=== PATIENT | female | born 1970 | race Caucasian/White ===

== ENCOUNTER 2023-08-09 04:24 | Emergency (ER) | payer OTHER, SELFPAY ==
[2023-08-09 04:32] VITALS: BP 145/85; PULSE 86; RESP 16; TEMP 37.4; O2SAT 98; BMI 42.0
--- NOTE | 2023-08-09 04:42 | ED.GENADULT ---
HPI - General Adult General Chief complaint: Fever Stated complaint: sore throat, fever Time Seen by Provider: 08/09/23 04:42 Source: patient Mode of arrival: ambulatory Limitations: no limitations History of Present Illness HPI narrative: Patient comes to the emergency room complaining of cold-like symptoms, diffuse body aches, fever of 100.5, sore throat. Symptoms have been present for 5 days Related Data Previous Rx's Medication Instructions Recorded benzonatate 100 mg capsule 100 mg PO TID PRN cough #14 caps 08/09/23 hydrocodone-homatropine 5 mg-1.5 5 ml PO TID PRN cough 5 days #473 08/09/23 mg/5 mL oral syrup (Hycodan (with mL homatropine)) Allergies Allergy/AdvReac Type Severity Reaction Status Date / Time nickel Allergy Hives Verified 08/09/23 04:38 levofloxacin [From Levaquin] AdvReac Anaphylaxis Verified 08/09/23 04:38 Review of Systems Review of Systems: Constitutional : No Weight loss, No Fever, No Chills, No Night Sweats, No Fatigue, complaining of body aches ENT/Mouth : No Hearing loss, No Ear Pain, No Nasal Congestion, No Sinus Pain, No Hoarseness, complaining of sore throat, No Rhinorrhea, No Swallowing Difficulty Eyes: No Eye Pain, No Swelling, No Redness, No Foreign Body, No Discharge, No Vision Changes Cardiovascular : No Chest Pain, No SOB, No Dyspnea on Exertion, No Orthopnea, No Edema, No Palpitations Respiratory : No Cough, No Sputum, No Wheezing, No Smoke Exposure, No Dyspnea Gastrointestinal : No Nausea, No Vomiting, No Diarrhea, No Constipation, No abdominal Pain, No Hematochezia, No Melena Genitourinary : no irregular bleeding, No Dysuria, No Urinary Frequency, No Hematuria, No Urinary Incontinence, No Urgency, No Flank Pain, No Urinary Flow Changes, No Hesitancy Musculoskeletal : No joint pain, No Myalgias, No Joint Swelling Skin : No Skin Lesions, No rash Neuro : No Weakness, No Numbness, No Paresthesias, No Loss of Consciousness, No Dizziness, No Headache Psych : No Anxiety/Panic, No Depression, No SI/HI/AH/VH, No Social Issues, Heme/Lymph: No Bruising, No Bleeding,No Lymphadenopathy Endocrine : No Polyuria, No Polydipsia, No Temperature Intolerance [facility] Past Medical History Medical History (Updated 08/09/23 @ 05:28 by Kinza Mike MD) Asthma Lupus Social History Social History Advance Directives: No Advance Directives Information Provided: Yes Physical Exam ED Vital Signs: Vital Signs - 24 hr 08/09/23 04:32 Temperature 99.3 F Pulse Rate 86 Respiratory Rate 16 Blood Pressure 145/85 H Pulse Oximetry 98 Oxygen Delivery Method Room Air BMI result Body Mass Index 42.0 Const Other: Appearance: Alert. Oriented X3. No acute distress. Eyes: Pupils equal, round and reactive to light. ENT: Pharynx normal. Neck: Normal inspection. Neck supple. No lymph nodes noted. No crepitus CVS: Normal heart rate and rhythm. Pulses normal. Normal S1 and S2 Respiratory: No respiratory distress. Breath sounds normal. No Wheezing. No rales Abdomen: Soft and nontender. No rigidity. No distention. Skin: Skin warm and dry. Normal skin color. Normal skin turgor. Extremities: No lower extremity edema. No Lacerations. No Rash Neuro: Oriented X 3. No motor deficit. No sensory deficit. Moving all extremities. No slurred speech. CN 2 through 12 grossly intact Psych: calm, cooperative, normal affect Medical Decision Making Medical Decision Making MDM Narrative: -my interpretation of labs, COVID test/influenza/strep test negative -likely viral illness Differential Diagnosis Differential Diagnoses: The differential diagnosis associated with the presentation includes (Viral syndrome, COVID, influenza) Lab Data Labs: Lab Results 08/09/23 Range/Units 04:31 Influenza Type A (PCR) NEGATIVE (Negative) Influenza Type B (PCR) NEGATIVE (Negative) RSV RNA Qual (PCR) NEGATIVE (Negative) SARS-CoV-2 RNA (RT-PCR) NEGATIVE (Negative) S. pyogenes GrpA ELIA Negative (Negative) Discharge Plan Discharge Clinical Impression: Acute viral syndrome Patient Disposition: Home, Self-Care Instructions: Viral Syndrome (ED) Additional Instructions: Please follow-up with your primary care physician tomorrow. If you have any worsening or new symptoms, please return to the emergency room or call 911 Prescriptions: New benzonatate 100 mg capsule 100 mg PO TID PRN (Reason: cough) Qty: 14 0RF hydrocodone-homatropine [Hycodan (with homatropine)] 5-1.5 mg/5 mL syrup 5 ml PO TID PRN (Reason: cough) 5 Days Qty: 473 0RF Rx Instructions: Partial Fill upon patient request.
[2023-08-09 04:52] LABS: IDNOW Serial# 08D9AD1C; Strep A Nucleic Acid Negative (Negative)
[2023-08-09 05:24] LABS: Influenza A PCR NEGATIVE (Negative); Influenza B PCR NEGATIVE (Negative); Resp Syncy Virus RNA Qual PCR NEGATIVE (Negative); SARS COV2 PCR INHOUSE NEGATIVE (Negative)
== END 2023-08-09 05:56 | disposition home or self-care (01) ==
PROVIDERS: Emergency Provider Emergency Medicine
DX: B34.9 Viral infection, unspecified (principal); R50.9 Fever, unspecified; J02.9 Acute pharyngitis, unspecified; Z20.822 Contact with and (suspected) exposure to COVID-19; Z20.828 Contact with and (suspected) exposure to other viral communicable diseases
CPT/HCPCS: 0241U; 87651; 99282; 99283

== ENCOUNTER 2024-07-09 09:40 | Outpatient (AMB) | payer OTHER, SELFPAY ==
[2024-07-09 09:44] VITALS: BP 130/86; BMI 48.4
--- NOTE | 2024-07-09 09:44 | MHC.OFFVIS ---
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 Pt states she has discoloration in both legs but states the right leg is worse. Pt states she had 2 DVT and 2 superficial thrombosis in her right leg. Pt states she wears compression socks everyday. Pt states she gets swelling in her legs as well. Pt states she is also going through radiation for cancer at [facility] currently. 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 Complaints include pain over varicosities, swelling of lower extremities, cramping, fatigue, and heaviness of the lower extremities. Her biggest concern is the discoloration in bilateral calfs. 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 It is noted more so in right leg. Of note she recently was diagnosed with uterine cancer had hysterectomy and actually is awaiting treatment with radiation therapy Patient denies any previous venous surgery or injections. Patient to prior events of a DVT and 1 day did lead to a PE this is a proximally 2 years prior. Patient denies any history of phlebitis. Trial of compression includes - [id number] They now present for vascular evaluation regarding their varicose veins. [facility] Medical History Asthma Lupus Review of Systems Const Reports as per HPI ENT Reports no additional complaints Card Denies chest pain, Denies chest pain at rest and Denies chest pain with activity Resp Denies chest congestion and Denies cough GI Reports no additional complaints Musc Details: pain over varicosities, aching of lower extremities, swelling, cramping, heaviness and tiredness, itching Denies abnormal gait Skin/Breast Reports pruritus and Denies wounds Neuro Reports no additional complaints and Denies abnormal gait Psych Denies no additional complaints Physical Exam Vital Signs: Last Vital Signs BP 130/86 07/09/24 09:44 BMI result Body Mass Index 48.4 Const General: cooperative, healthy appearing and comfortable Orientation/consciousness: oriented to person, oriented to place and oriented to time Neck Carotids: no bruits Chest Chest palpation & inspection: normal inspection of the chest and normal palpation of entire chest wall Resp Effort & Inspection: normal respiratory effort and able to speak in complete sentences Cardio Rate: regular rate Heart sounds: S1 normal heart sound present and S2 normal heart sound present Peripheral pulses: Peripheral pulses 2+ throughout GI Inspection: Yes normal to inspection Skin Other: +2 edema, large rope-like varicosities greater than 4 mm CEAP Classification C4 - skin color changes Ep - Etiology Primary As - superficial veins P - reflux General skin exam: dry skin Neuro General: oriented to person, oriented to place and oriented to time Extrem Right lower extremity: full ROM, normal capillary refill and edema Left lower extremity: full ROM, normal capillary refill and edema Psych Mental Status: mental status grossly normal Assessment & Plan Assessment & Plan (1) Varicose veins of right lower extremity with inflammation: Code(s): I83.11 - Varicose veins of right lower extremity with inflammation Category: Medical Plan: In short, the patient has evidence of venous insufficiency. I have discussed the pathophysiology with the patient. In addition I have provided informational material regarding venous disease to the patient. We have discussed conservative measures including compression, elevation, and exercise. I have also provided a handout regarding appropriate use of compression stockings and where to purchase good compression stockings as well. I have taken the liberty of ordering venous insufficiency testing with the patient. They will follow up with me after testing. The patient had an opportunity to ask questions regarding the treatment plan. All questions were answered. Imaging studies, laboratory studies and physical exam results were discussed and reviewed in detail. No major barriers to understanding were identified. The patient expressed understanding and agreement with the above treatment plan. The patient is aware they should contact our office by phone for worsening of the current condition or the appearance of new symptoms. Thank you for allowing me to participate in the vascular care of this patient. If you have any questions or concerns regarding the treatment for the above condition please do not hesitate to contact me. The office telephone contact is [phone]. This note is constructed using voice recognition software. While every effort has been made to ensure accuracy, silk spotter errors may have been included. Thank you for allowing me to participate in the care of your patient. Yours sincerely, Pietro Schaffer MD, FACS, R.P.V.I. (2) Lymphedema: Code(s): I89.0 - Lymphedema, not elsewhere classified Category: Medical Plan: Patient may have an element lymphedema. She did have radical hysterectomy with lymph node sampling. This may be contributing to her the swelling of the lower extremities. We did discuss this in detail with the patient as well. I will treat her for her venous disease 1st. If issues increase or should swelling become a problem may need to address lymphedema in the future. Thank you for allowing us to assist in her care. If there are any questions or concerns please do not hesitate to contact us. Orders: Orders US venous duplex LE BI 1 Week I83.11 - Varicose veins of right lower extremity with inflammation Medications: Discontinued hydrocodone-homatropine 5-1.5 mg/5 mL (Hycodan (with homatropine)) Partial Fill upon patient request. Discontinued Reason: Patient no longer taking 5 mL PO TID 5 days PRN 473 mL 0RF cough benzonatate Discontinued Reason: Patient no longer taking 100 mg PO TID PRN 14 caps 0RF cough Coding Level of Care Code New Pt Level 4 (05584) Diagnoses Varicose veins of right lower extremity with inflammation I83.11 Lymphedema I89.0
== END 2024-07-09 10:16 | disposition home or self-care (01) ==
PROVIDERS: Visit Provider Surgery Vascular Surgery
DX: I83.11 Varicose veins of right lower extremity with inflammation (principal); I89.0 Lymphedema, not elsewhere classified
CPT/HCPCS: 99204

== ENCOUNTER → 2024-07-09 09:40 | Outpatient (BNVA) | payer OTHER, SELFPAY | PROVIDERS: Visit Provider Surgery Vascular Surgery ==

== ENCOUNTER 2024-08-03 10:30 | Outpatient (REF) | payer OTHER, SELFPAY ==
--- NOTE | ~2024-08-03 | US_ITS ---
EXAMINATION: US VENOUS BILATERAL LOWER EXTREMITIES (REFLUX EXAM) CLINICAL INDICATION: Varicose veins right lower extremity COMPARISON: None TECHNIQUE: Color flow triplex imaging and compression Doppler was performed to evaluate both the deep and the superficial systems bilaterally. To evaluate the superficial system, the examination was performed in the upright position. Color-flow Doppler ultrasound and compression ultrasound were utilized. In addition, maneuvers were utilized to demonstrate reflux. FINDINGS: 1. DEEP VENOUS ULTRASOUND OF THE RIGHT LOWER EXTREMITY: Respiratory variation, normal compression and augmented flow are noted in the right common femoral vein as well as the right popliteal vein and there is no evidence of deep venous thrombosis at these locations. There is significant reflux of 2.1 seconds in the popliteal vein without reflux in the common femoral vein. There is no evidence of a Arnold's cyst. 2. SUPERFICIAL ULTRASOUND WITH DOPPLER OF RIGHT LOWER EXTREMITY: The right great saphenous vein at the saphenofemoral junction measures 8 mm, at the proximal thigh 6 mm, at the mid thigh 4 mm, above the knee 3 mm, at the knee 3 mm, [id number] 3 mm, midcalf 2 mm and at the ankle measures 4 mm. There is gross reflux in the right great saphenous vein from the mid thigh down to the mid calf with reflux times as high as 3 seconds. Duplicated Right Great Saphenous Vein: There is a 4 mm lateral saphenous vein that does not reflux. The right small saphenous vein measures 3 mm and shows no reflux. Accessory Vein of Giacomini: None Incompetent Perforators: There is a 2 mm incompetent perforators seen 21 cm from the heel with 2.4 seconds of reflux. Varices Present: Multiple varicosities ranging in size from 0.3 to 0.5 cm many with gross greater than 2 seconds of reflux 3. DEEP VENOUS ULTRASOUND OF THE LEFT LOWER EXTREMITY: Respiratory variation, normal compression and augmented flow are noted in the left common femoral vein as well as the left popliteal vein and there is no evidence of deep venous thrombosis at these locations. There is no evidence of reflux in the deep system in either the common femoral vein or the popliteal vein. There is no evidence of a Arnold's cyst. 4. SUPERFICIAL ULTRASOUND WITH DOPPLER OF LEFT LOWER EXTREMITY: Left great saphenous vein at the saphenofemoral junction measures 12 mm, at the proximal thigh 5 mm, at the mid thigh 4 mm, above the knee 3 mm, at the knee 4 mm, [id number] 3 mm, midcalf 1 mm and at the ankle measures 2 mm. There is reflux in the great saphenous vein from just below the knee down to the ankle with reflux times of 2.2 seconds. Duplicated Left Great Saphenous Vein: None The left small saphenous vein measures 2 mm and shows no reflux. Accessory Vein of Giacomini: None Incompetent Perforators: None. Varices Present: Varices are present measuring up to 0.6 cm in diameter with 2.8 seconds of reflux. US/US venous duplex LE BI IMPRESSION: 1. No evidence of thrombus in the common femoral veins or popliteal veins bilaterally. 2. Significant reflux in the right popliteal vein. 3. Bilateral great saphenous reflux as described above. Electronically signed by: Marc Ferguson MD 08/03/2024 02:37 PM EDT
== END 2024-08-03 10:31 | disposition home or self-care (01) ==
LOC: HO.US 10:30
PROVIDERS: Visit Provider Surgery Vascular Surgery
DX: I83.11 Varicose veins of right lower extremity with inflammation (principal)
CPT/HCPCS: 93970

== ENCOUNTER 2024-08-27 12:53 | Outpatient (AMB) | payer OTHER, SELFPAY ==
--- NOTE | 2024-08-27 13:00 | MHC.OFFVIS ---
Intake Visit Reasons: follow up s/p 08/03/24 Intake Note: Patient presents for followup . No complaints. Allergies amoxicillin [From Augmentin] Allergy (Severe, Verified 08/27/24 13:01) Vomiting clavulanic acid [From Augmentin] Allergy (Severe, Verified 08/27/24 13:01) Vomiting nickel Allergy (Verified 08/27/24 13:01) Hives levofloxacin [From Levaquin] Adverse Reaction (Verified 08/27/24 13:01) Anaphylaxis HPI HPI follow up s/p 08/03/24: Details: Very pleasant 53-year-old female presents for follow-up evaluation regarding venous disease. She has right lower extremity swelling and discomfort. She also has skin discoloration of bilateral calves. 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 She now presents for follow-up with venous insufficiency testing. Of note she has used compression with minimal relief. [facility] Medical History Asthma Lupus Review of Systems Const Reports as per HPI ENT Reports no additional complaints Card Denies chest pain, Denies chest pain at rest and Denies chest pain with activity Resp Denies chest congestion and Denies cough GI Reports no additional complaints Musc Details: pain over varicosities, aching of lower extremities, swelling, cramping, heaviness and tiredness, itching Denies abnormal gait Skin/Breast Reports pruritus and Denies wounds Neuro Reports no additional complaints and Denies abnormal gait Psych Denies no additional complaints Physical Exam Const General: cooperative, healthy appearing and comfortable Orientation/consciousness: oriented to person, oriented to place and oriented to time Neck Carotids: no bruits Chest Chest palpation & inspection: normal inspection of the chest and normal palpation of entire chest wall Resp Effort & Inspection: normal respiratory effort and able to speak in complete sentences Cardio Rate: regular rate Heart sounds: S1 normal heart sound present and S2 normal heart sound present Peripheral pulses: Peripheral pulses 2+ throughout GI Inspection: Yes normal to inspection Skin Other: +2 edema, right medial ankle discolored skin CEAP Classification C4 - skin color changes Ep - Etiology Primary As - superficial veins P - reflux General skin exam: dry skin Neuro General: oriented to person, oriented to place and oriented to time Extrem Right lower extremity: full ROM, normal capillary refill and edema Left lower extremity: full ROM, normal capillary refill and edema Psych Mental Status: mental status grossly normal Results Reviewed Results Reviewed: Brief summary of venous insufficiency testing is as follows: right great saphenous vein: Positive right small saphenous vein: negative right accessory vein: none present left great saphenous vein: negative left small saphenous vein: negative left accessory vein: none present Please note there is no evidence of any venous aneurysms or significant tortuosity Assessment & Plan Assessment & Plan (1) Varicose veins of right lower extremity with inflammation: Code(s): I83.11 - Varicose veins of right lower extremity with inflammation Category: Medical Plan: This patient has varicose veins with inflammation. They continue to be a source of discomfort for the patient. The patient has tried conservative treatment with compression, leg elevation and exercise program for over 3 months time. They have been compliant with all treatment. This has provided minimal relief for the patient. I do not anticipate this course of treatment will alter the underlying etiology. The patient has been scheduled for lower extremity venous treatment inclusive of --- right great saphenous vein Cyanoacralate ablation. Risks, benefits, and complications of this procedure has been discussed in detail with the patient including but not limited to bleeding, infection, and the development of a DVT. The patient has demonstrated a clear understanding and has consented. We will schedule the patient as soon as possible. Thank you for allowing us to participate in this patient's care. If there are any questions or concerns please do not hesitate to contact us. Coding Level of Care Code Est Pt Level 4 (67218) Diagnoses Varicose veins of right lower extremity with inflammation I83.11
== END 2024-08-27 13:14 | disposition home or self-care (01) ==
PROVIDERS: Visit Provider Surgery Vascular Surgery
DX: I83.11 Varicose veins of right lower extremity with inflammation (principal)
CPT/HCPCS: 99214

== ENCOUNTER → 2024-08-27 12:53 | Outpatient (BNVA) | payer OTHER, SELFPAY | PROVIDERS: Visit Provider Surgery Vascular Surgery ==

== ENCOUNTER 2024-11-20 12:26 | Outpatient (AMB) | payer OTHER, SELFPAY ==
--- NOTE | 2024-11-20 13:03 | MHC.OFFVIS ---
Intake Visit Reasons: Right GSV Venaseal Accompanied by: Self / Same As Patient Allergies amoxicillin [From Augmentin] Allergy (Severe, Verified 11/20/24 13:04) Vomiting clavulanic acid [From Augmentin] Allergy (Severe, Verified 11/20/24 13:04) Vomiting nickel Allergy (Verified 11/20/24 13:04) Hives levofloxacin [From Levaquin] Adverse Reaction (Verified 11/20/24 13:04) Anaphylaxis [facility] Medical History Asthma Lupus Office Procedures Vascular Office Procedure Details Details: Diagnosis: Right Leg varicose veins with inflammation Procedure: Endovenous Ablation of the right Great Saphenous Vein with VenaSeal Closure System Anesthesia: Local infiltration 5 cc, Monument Stonecutter: PHUONG Holland Estimated Blood Loss: min Specimen: none Duplex ultrasound was used to map out the insufficient saphenous vein, and access was determined and marked on the overlying skin. The depth and diameter of the vein(s) to be treated was documented. The patient was placed supine on the procedure table and the leg was prepped and draped using sterile technique. Ultasound guidance was again used to localize the access site. 1% lidocaine was injected as a local anesthetic in the subcutaneous tissues at the target location in the GSV in the lower leg. Using ultrasound guidance, access was gained at this location with the 19 gauge thin walled access needle and followed by introduction of a short guidewire, location confirmed with ultrasound. A small, 3 mm incision was made at the access site to allow for introduction and placement of the 7 Fr x7cm introducer/dilator. The dilator and guidewire were removed. The 0.035 guidewire from the VenaSeal kit was then introduced and positioned at the saphenofemoral junction using ultrasound guidance. The 80 cm 7 Fr introducer sheath/dilator was positioned 5cm from the saphenofemoral junction. The guidewire and dilator were removed, and the remaining sheath was flushed with sterile saline, with the syringe remaining in place prior to the next steps. The cyanoacrylate adhesive was precisely primed into the 5 F delivery catheter and this catheter/syringe combination was attached within the dispenser gun. This assembly was introduced through the 7F sheath and positioned 5 cm caudal of the saphenofemoral junction under ultrasound guidance. The steps from the IFU were followed for dispensing amounts, locations and compression times, 2 aliquots proximally with 3 minutes of compression, and 1 aliquot every 3 cm distally with 30 sec of compression along the course of the vessel. Following the last injection and compression sequence, the catheter and introducer sheath were pulled out from the access site. Hemostasis was achieved with manual compression and an adhesive bandage was applied to the incision. Ultrasound confirmed complete coaptation and closure of the treated segments of the GSV, and the absence of any DVT at the saphenofemoral junction. Treatment time was approximately 7 minutes and the vein length treated was 40 cm. The drapes were removed and the patient cleaned and prepared for discharge. Post op ultrasound check is scheduled for 48-72 hours and the patient was given written post-op instructions. Diagnosis: [] Leg varicose veins with inflammation 92097 - Endoven Ther Chem Adhes 1st All charges added?: Procedure code (CPT) selection complete Assessment & Plan Assessment & Plan (1) Varicose veins of right lower extremity with inflammation: Comment: 11/20/2024 - right great saphenous vein Cyanoacralate ablation Code(s): I83.11 - Varicose veins of right lower extremity with inflammation Category: Medical Plan: See op note Coding Level of Care Code Procedure Only Diagnoses Varicose veins of right lower extremity with inflammation I83.11 CPT Codes Details - Vascular 3: 72457 - Endoven Ther Chem Adhes 1st ([id number])
== END 2024-11-20 13:29 | disposition home or self-care (01) ==
PROVIDERS: Visit Provider Surgery Vascular Surgery
DX: I83.11 Varicose veins of right lower extremity with inflammation (principal)
CPT/HCPCS: 36482

== ENCOUNTER → 2024-11-20 12:26 | Outpatient (BNVA) | payer OTHER, SELFPAY | PROVIDERS: Visit Provider Surgery Vascular Surgery | DX: I83.11 Varicose veins of right lower extremity with inflammation (principal) | CPT/HCPCS: 36482; J2003 ==

== ENCOUNTER 2024-11-26 07:06 | Emergency (ER) | payer OTHER, SELFPAY ==
--- NOTE | ~2024-11-26 | US_ITS ---
EXAMINATION: US TRIPLEX LOWER EXTREMITY, BILATERAL CLINICAL INFORMATION: Pain, swelling, history of DVT. COMPARISON: 08/03/2024. TECHNIQUE: Color-flow triplex imaging with spectral analysis and compression Doppler were performed on the bilateral lower extremities. FINDINGS: Respiratory variation, normal compression and augmented flow are noted throughout the bilateral lower extremities. The visualized common femoral vein, superficial femoral vein, profunda femoral vein, popliteal vein and midcalf peroneal and posterior tibial venous segments show no evidence of deep venous thrombosis bilaterally. There is no Arnold's cyst. Status post RIGHT venous serial 11/20/2024, with greater saphenous thrombus seen 1.8 cm from the common femoral junction are US/US venous duplex LE BI IMPRESSION: 1. No evidence of deep venous thrombosis involving the bilateral lower extremities. 2. Expected RIGHT greater saphenous thrombosis, beginning 1.8 cm distal to the origin. No extension into the common femoral vein. Electronically signed by: Freddy Haile MD 11/26/2024 10:15 AM DOR[facility]
[2024-11-26 07:08] VITALS: BP 144/101; PULSE 91; RESP 16; TEMP 36.5; O2SAT 97; BMI 48.4
[2024-11-26 07:23] LABS: MANUAL DIFF FLAG NO
[2024-11-26 07:26] LABS: Basophils Percent Auto 0.6 % (0-2); Eosinophils Absolute Auto 0.2 X10*3/uL (0.0-0.4); Eosinophils Percent Auto 2.6 % (0-4); Hematocrit 41.3 % (37.0-47.0); Hemoglobin 13.6 g/dl (12.0-16.0); Imm Gran Abs Auto 0.02 X10*3/uL (0.00-0.03); Imm Gran Pct Auto 0.3 % (0.0-0.4); Lymphocytes Absolute Auto 2.4 X10*3/uL (1.2-4.9); Lymphocytes Percent Auto 34.5 % (20-40); Mean Corpuscular HGB Conc 32.9 g/dl (31.0-35.0); Mean Corpuscular Hemoglobin 28.6 pg (27.0-33.0); Mean Corpuscular Volume 86.9 fL (80.0-98.0); Mean Platelet Volume 9.1 fL (9.4-12.3); Monocytes Absolute Auto 0.6 X10*3/uL (0.1-1.2); Monocytes Percent Auto 8.5 % (2-11); Neutrophils Absolute Auto 3.7 x10*3/uL (2.0-8.3); Neutrophils Percent Auto 53.5 % (45-73); Platelet Count 213 X10*3/uL (160-400); Red Blood Count 4.75 X10*6/uL (4.20-5.50); Red Cell Distribution Width 12.9 % (11.0-16.0); White Blood Count 6.8 X10*3/uL (4.8-10.8)
--- NOTE | 2024-11-26 07:27 | ED.EXTPRO ---
HPI - Extremity Problem General Chief complaint: Extremity Problem Stated complaint: Leg swelling Time Seen by Provider: 11/26/24 07:15 Source: patient, RN notes reviewed and old records reviewed Mode of arrival: ambulatory Limitations: no limitations History of Present Illness ED Provider: Karley Peres PA-C HPI Narrative: 54 y/o female with history of DVT/PE s/p EKOS two years ago, now off of Xarelto, history of stage I endometrial cancer s/p surgery, radiation and chemo, asthma, lupus, history of RLE varicose veins s/p endovenous ablation of the right GSV w/ Dr. Schaffer on 11/20/24 who presents to the ER for evaluation of right lower extremity pain, swelling, redness that have been worsening since the procedure. She reports the redness and swelling are mostly in the lower leg anterior portion. She has pain behind the knee and in the groin as well. Follow up appointment with vascular is in 2 weeks. She reports prior DVT/PE were thought to be due to Moderna COVID vaccine. She had a negative hypercoagulable workup in the past. No chest pain or SOB. MD Complaint: extremity pain and extremity swelling Onset (ago): day(s) (3) Pain Consistency: constant Location: right and lower extremity Severity scale (1-10): 6 Quality: aching Radiation: proximal Relieving factors: rest Exacerbating factors: range of motion, weight bearing and palpation Associated symptoms: denies other symptoms Context: recent surgery/procedure Related Data Previous Rx's ?Medication ?Instructions ?Recorded doxycycline monohydrate 100 mg 100 mg PO BID #14 caps 11/26/24 capsule ketorolac 10 mg tablet 10 mg PO Q8H PRN pain 3 days #9 11/26/24 tabs Allergies Allergy/AdvReac Type Severity Reaction Status Date / Time amoxicillin [From Augmentin] Allergy Severe Vomiting Verified 11/26/24 07:13 clavulanic acid Allergy Severe Vomiting Verified 11/26/24 07:13 [From Augmentin] nickel Allergy Hives Verified 11/26/24 07:13 levofloxacin [From Levaquin] AdvReac Anaphylaxis Verified 11/26/24 07:13 Review of Systems Review of Systems: Yes all other systems are reviewed and are negative PMFSH Past Medical History Medical History Asthma Lupus Social History Social History Alcohol intake: current Alcohol intake frequency: a few times a month Smoked in Last 30 Days: No Use of substances other than those prescribed or required for medical reasons: No Advance Directives: No Advance Directives Information Provided: No Do you have a plan to hurt others: No Plan Physical Exam Vital Signs: Vital Signs: Last Vital Signs Temp 98.7 F 11/26/24 11:15 Pulse 76 11/26/24 11:15 Resp 16 11/26/24 11:15 BP 132/78 11/26/24 11:15 Pulse Ox 96 11/26/24 11:15 O2 Del Method Room Air 11/26/24 11:15 BMI result Body Mass Index 48.4 Appearance: Alert. Oriented X3. No acute distress. HEENT: normal inspection CVS: Normal heart rate and rhythm. Pulses normal. Respiratory: No respiratory distress. Skin: Skin warm and dry. Normal skin color. Normal skin turgor. No rashes. Extremities: mild erythema, warmth and tenderness to the middle of the right anterior lower leg. chronic venous stasis changes in the distal RLE. surgical access site in the proximal lower leg w/ minor ecchymosis. no erythema or drainage. there is tenderness and fullness in the popliteal area on the right. no calf tenderness. Neuro: Oriented X 3. No motor deficit. No sensory deficit. antalgic gait Medications Administered Discontinued Medications Generic Name Dose Route Start Last Admin Trade Name Freq PRN Reason Stop Dose Admin Acetaminophen 975 mg 11/26/24 08:12 11/26/24 08:24 Acetaminophen 325 Mg Tablet PO 11/26/24 08:13 975 mg ONCE ONE Administration Doxycycline Monohydrate 100 mg 11/26/24 10:26 11/26/24 10:55 Doxycycline Monohydrate 100 Mg Capsule PO 11/26/24 10:27 100 mg ONCE ONE Administration Ketorolac Tromethamine 30 mg 11/26/24 10:26 11/26/24 10:54 Ketorolac Tromethamine 30 Mg/Ml Vial IM 11/26/24 10:27 30 mg ONCE ONE Administration Medical Decision Making Medical Decision Making MDM Narrative: 54-year-old female presents to the ER for evaluation of right lower extremity pain, redness, swelling after she had an endovascular procedure done with Dr. Schaffer 6 days ago. Symptoms started 3 days after the procedure. She does have history of DVT and PE in the past and has been off of anticoagulation. Vascular made aware she is in the department in [place] came down to evaluate her. Lower extremity Dopplers done and were negative for acute DVT. There is a thrombosis in the area of the procedure which is an expected finding. There is no acute intervention. Given her physical exam findings and symptoms will treat for acute cellulitis with oral antibiotics. She reports history of Keflex very in the past and thinks she has MRSA colonization. Will prescribe doxycycline as she has tolerated this well in the past. Stable for discharge with follow-up with vascular. Differential Diagnosis Differential Diagnoses: The differential diagnosis associated with the presentation includes superficial thrombophlebitis, DVT, cellulitis, post-op complication Consult Healthcare Provider Management of the patient was discussed with: Ehr Trainer Dr. Schaffer Lab Data MDM Lab Attestation statement: I reviewed the patient's lab results. 11/26/24 07:19 11/26/24 07:19 Labs: Lab Results 11/26/24 Range/Units 07:19 WBC 6.8 (4.8-10.8) X10*3/uL RBC 4.75 (4.20-5.50) X10*6/uL Hgb 13.6 (12.0-16.0) g/dl Hct 41.3 (37.0-47.0) % MCV 86.9 (80.0-98.0) fL MCH 28.6 (27.0-33.0) pg MCHC 32.9 (31.0-35.0) g/dl RDW 12.9 (11.0-16.0) % Plt Count 213 (160-400) X10*3/uL MPV 9.1 L (9.4-12.3) fL Immature Gran % (Auto) 0.3 (0.0-0.4) % Neut % (Auto) 53.5 (45-73) % Lymph % (Auto) 34.5 (20-40) % [place] % (Auto) 8.5 (2-11) % Eos % (Auto) 2.6 (0-4) % Baso % (Auto) 0.6 (0-2) % Lymph # (Auto) 2.4 (1.2-4.9) X10*3/uL [place] # (Auto) 0.6 (0.1-1.2) X10*3/uL Eos # (Auto) 0.2 (0.0-0.4) X10*3/uL Baso # (Auto) 0.0 (0.0-0.2) X10*3/uL Abs Immat Gran (auto) 0.02 (0.00-0.03) X10*3/uL Absolute Neuts (auto) 3.7 (2.0-8.3) x10*3/uL Absolute Nucleated RBC 0.000 (0.0-0.012) X10*3/uL Nucleated RBC % (auto) 0.0 (0.0-0.2) /100WBC PT 12.1 (10.9-12.4) SEC INR 1.0 (0.9-1.1) APTT 31.1 (26.0-36.8) SEC Sodium 142 (135-145) mmol/L Potassium 3.8 (3.3-5.1) mmol/L Chloride 112 H (96-108) mmol/L Carbon Dioxide 22 (22-29) mmol/L Anion Gap 12 (12-20) BUN 14 (9-16) mg/dL Creatinine 0.78 (0.5-1.4) mg/dL Estim Creat Clear Calc 118.5 Estimated GFR > 60 Random Glucose 100 (60-115) mg/dL Calcium 9.7 (8.4-10.2) mg/dL Total Bilirubin 0.5 (0.0-1.0) mg/dL Direct Bilirubin 0.2 (0.0-0.5) mg/dL AST 18 (5-31) U/L ALT 13 (0-31) U/L Alkaline Phosphatase 79 (39-117) U/L Total Protein 7.8 (6.5-8.0) g/dL Albumin 3.9 (3.5-5.0) g/dL Independent Interpretation I performed an independent interpretation of an: Ultrasound Interpretation: no DVT appreciated Radiology Impression Discussion of test interpretation with radiology: I have reviewed the radiologist's reading. External Record Review External record reviewed: Prior outpatient labs and Prior outpatient radiology Prescription Management I considered prescription management with: Pain Medication, Antibiotic and Other (anticoagulation) Chronic Conditions Patient?s care impacted by: Other (cancer, hx DVT) Critical Care Time Critical Care Time Critical Care Time: No Discharge Plan Discharge Clinical Impression: Cellulitis Patient Disposition: Home, Self-Care Instructions: Cellulitis (DC) Additional Instructions: NO DVT seen in ultrasounds Take the prescribed antibiotics as directed, complete the entire course and do not miss any doses Use warm compresses several times per day Take the prescribed anti-inflammatory as needed for pain If you develop new or worsening symptoms call 911 or come back to the ER for further evaluation. EXAMINATION: US TRIPLEX LOWER EXTREMITY, BILATERAL CLINICAL INFORMATION: Pain, swelling, history of DVT. COMPARISON: 08/03/2024. TECHNIQUE: Color-flow triplex imaging with spectral analysis and compression Doppler were performed on the bilateral lower extremities. FINDINGS: Respiratory variation, normal compression and augmented flow are noted throughout the bilateral lower extremities. The visualized common femoral vein, superficial femoral vein, profunda femoral vein, popliteal vein and midcalf peroneal and posterior tibial venous segments show no evidence of deep venous thrombosis bilaterally. There is no Arnold's cyst. Status post RIGHT venous serial 11/20/2024, with greater saphenous thrombus seen 1.8 cm from the common femoral junction are US/US venous duplex LE BI IMPRESSION: 1. No evidence of deep venous thrombosis involving the bilateral lower extremities. 2. Expected RIGHT greater saphenous thrombosis, beginning 1.8 cm distal to the origin. No extension into the common femoral vein. Prescriptions: New doxycycline monohydrate 100 mg capsule 100 mg PO BID Qty: 14 0RF ketorolac 10 mg tablet 10 mg PO Q8H PRN (Reason: pain) 3 Days Qty: 9 0RF Interventions: ED Discharge Assessment Last Done: 11/26/24 11:15 Discharge Date/Time: 11/26/24 11:17 Print Language: Kinyarwanda
[2024-11-26 07:29] LABS: Prothrombin Time 12.1 SEC (10.9-12.4)
[2024-11-26 07:32] LABS: Partial Thromboplastin Time 31.1 SEC (26.0-36.8)
[2024-11-26 07:45] LABS: Alanine Aminotransferase 13 U/L (0-31); Albumin Level 3.9 g/dL (3.5-5.0); Anion Gap 12 (12-20); Aspartate Amino Transferase 18 U/L (5-31); Bilirubin Direct 0.2 mg/dL (0.0-0.5); Bilirubin Total 0.5 mg/dL (0.0-1.0); Blood Urea Nitrogen 14 mg/dL (9-16); Calcium 9.7 mg/dL (8.4-10.2); Carbon Dioxide 22 mmol/L (22-29); Chloride 112 mmol/L (96-108); Creatinine Clr Calc Pharmacy 118.5; Estimated Glomerular Filt Rate > 60; Glucose Random 100 mg/dL (60-115); Potassium 3.8 mmol/L (3.3-5.1); Sodium 142 mmol/L (135-145); Total Protein 7.8 g/dL (6.5-8.0)
[2024-11-26 07:53] LABS: Alkaline Phosphatase 79 U/L (39-117)
[2024-11-26] MEDS: Acetaminophen 325 MG TABLET 975 MG PO (08:24)
--- NOTE | 2024-11-26 10:36 | P.PNVS_ITS ---
<Statement entered by Pietro Schaffer MD - 11/26/24 11:29> Patient with acute thrombophlebitis. Would recommend warm compresses and nonsteroidals. Follow-up with us as an outpatient. Subjective Subjective Date of Service: 11/26/24 Interval history: We were consulted on Corrine, for RLE swelling and pain, since Saturday. She is s/p right GSV Venaseal on 11/20/24. She tolerated the procedure well. She states the swelling and pain started up around Saturday. She states her right lower extremity is very swollen, painful to palpation, and she states her ROM is decreased due to the pain and swelling. The incision site is C/D/I. She denies any fever/chills/body aches. She has been applying warm compresses to area with little effect. She has also been taking Ibuprofen. Physical Exam Vital Signs: Vital Signs: Last Vital Signs Temp 97.7 F 11/26/24 07:08 Pulse 91 11/26/24 07:08 Resp 16 11/26/24 07:08 BP 144/101 H 11/26/24 07:08 Pulse Ox 97 11/26/24 07:08 O2 Del Method Room Air 11/26/24 07:08 BMI result Body Mass Index 48.4 Const: General: comfortable and no acute distress Orientation/conscious ness: patient oriented x3 HEENT: Ears: hearing grossly normal bilaterally Resp: Effort & Inspection: normal respiratory effort and able to speak in complete sentences Auscultation: clear to auscultation bilaterally Cardio: Rate: regular rate Rhythm: regular rhythm Heart sounds: S1 normal heart sound present and S2 normal heart sound present Bruits: no abdominal aortic bruits, no carotid bruits, no femoral bruits and no renal bruits GI: Palpation (GI): No Abdominal aortic bruit present Neuro: General: patient oriented x3 Cranial nerves: Yes CN's II-XII intact bilaterally Extrem: Other: Right lower extremity: erythematous in the calf, medially from just above the ankle to just below the tibial tuberosity. Very painful to palpation. Warm to the touch. Progress Note: A&P Assessment and plan (1) Cellulitis: Status: Acute Assessment and Plan: Corrine is presenting to the ER for right lower extremity swelling, pain, and redness. We were consulted due to the pt being s/p right GSV Venaseal on Saturday, 11/20. She states she started having pain with redness and swelling in the right lower extremity since Saturday. She has been taking Ibuprofen and applying warm compresses to the lower leg. Venous duplex was negative for a DVT. We suggest continuing with warm compresses and Ibuprofen. We will have her follow up in our office in 2 weeks. Thank you for the consult. If there are any questions or concerns, please do not hesitate to reach out to us. Time Spent With Patient Time: Total time managing care of this patient today ____ minutes. Procedures Date of Service Date of Service: 11/26/24 Quality Stroke Does the patient have a stroke diagnosis?: No VTE Prior VTE?: No VTE Risk Level:: Medical - moderate - high VTE Device Contraindication: Treatment Not Indicated VTE Drug Contraindication: N/A - Med Ordered
[2024-11-26] MEDS: Ketorolac Tromethamine 30 MG/ML VIAL IM (10:54)
[2024-11-26] MEDS: Doxycycline Monohydrate 100 MG CAPSULE PO (10:55)
[2024-11-26 10:59] VITALS: BP 132/78; PULSE 76; RESP 16; O2SAT 96
[2024-11-26 11:15] VITALS: BP 132/78; PULSE 76; RESP 16; TEMP 37.1; O2SAT 96
== END 2024-11-26 11:17 | disposition home or self-care (01) ==
PROVIDERS: Emergency Provider Student in an Organized Health Care Education/Training Program; PCP Physician Assistant
DX: L03.115 Cellulitis of right lower limb (principal); R60.0 Localized edema; Z79.01 Long term (current) use of anticoagulants; Z79.899 Other long term (current) drug therapy
CPT/HCPCS: 36415; 80048; 80076; 85025; 85610; 85730; 93970; 96372; 99284; J1885

== ENCOUNTER → 2024-11-26 07:26 | Outpatient (BNV) | payer OTHER, SELFPAY | PROVIDERS: Emergency Provider Student in an Organized Health Care Education/Training Program; PCP Physician Assistant; Visit Provider Radiology Diagnostic Radiology | DX: M79.661 Pain in right lower leg (principal); M79.662 Pain in left lower leg; R22.9 Localized swelling, mass and lump, unspecified | CPT/HCPCS: 93970 ==

== ENCOUNTER → 2024-11-26 07:31 | Outpatient (BNV) | payer OTHER, SELFPAY | PROVIDERS: Emergency Provider Student in an Organized Health Care Education/Training Program; PCP Physician Assistant; Visit Provider Physician Assistant Surgical | DX: L03.115 Cellulitis of right lower limb (principal) | CPT/HCPCS: 99283 ==

== ENCOUNTER 2025-01-24 08:23 | Emergency (ER) | payer OTHER, SELFPAY ==
--- NOTE | ~2025-01-24 | US_ITS ---
CLINICAL HISTORY: calf pain and swelling Venous duplex ultrasound right lower extremity Comparison: 11/26/2024 Findings: There is deep venous thrombosis from the distal superficial femoral vein through the popliteal vein. No popliteal cyst. The rest of the deep venous system of the right lower extremity is patent. IMPRESSION: There is deep venous thrombosis from the distal superficial femoral vein through the popliteal vein. This document has been electronically signed by: Maximo Flowers MD on 01/24/2025 09:50:54
--- NOTE | ~2025-01-24 | CT_ITS ---
CLINICAL HISTORY: calf pain and swelling, hx saddle PE CT angiography chest with contrast. 3D Postprocessing. Comparison: None Findings: The heart is normal in size. The RV/LV ratio is normal. There is no pericardial effusion. The thyroid gland appears normal. There is no mediastinal, hilar, or axillary lymphadenopathy. Acute pulmonary emboli are seen within the right upper lobe, right middle lobe, and bilateral lower lobe segmental and subsegmental branches. 1.7 cm left lower lobe nodule is seen adjacent to the diaphragm (axial image 42 of series 5). Limited examination of the upper abdomen demonstrates no significant abnormality. Mild degenerative changes are seen in the spine. No acute fractures. IMPRESSION: 1. Acute pulmonary emboli within the right upper lobe, right middle lobe, and bilateral lower lobe segmental and subsegmental pulmonary arteries. No evidence of right heart strain. 2. 1.7 cm left lower lobe nodule adjacent to the diaphragm. According to Fleischner society guidelines, recommend three-month follow-up CT chest, PET/CT, or tissue sampling for further evaluation. This document has been electronically signed by: Laurent Chao on 01/24/2025 10:50:31
[2025-01-24 08:27] VITALS: BP 132/80; PULSE 75; RESP 14; TEMP 36.4; O2SAT 95; BMI 42.0
--- NOTE | 2025-01-24 08:36 | ED.GENADULT ---
HPI - General Adult General Chief complaint: Extremity Injury, Lower Stated complaint: right leg swelling Time Seen by Provider: 01/24/25 08:24 Source: patient, RN notes reviewed and old records reviewed Mode of arrival: ambulatory Limitations: no limitations History of Present Illness ED Provider: Rhianna HPI narrative: Patient is a 54-year-old female with history DVT/PE s/p EKOS two years ago, now off of Xarelto, history of stage I endometrial cancer s/p surgery, radiation and chemo, asthma, lupus, history of RLE varicose veins s/p endovenous ablation of the right GSV w/ Dr. Schaffer on 11/20/24 presenting with right calf pain and swelling since Saturday. First noted symptoms after gardening, initially attributed to twisting her right knee. Complains of pain to popliteal fossa as well. Denies chest pain or dyspnea. Does reports some palpitations which she has been attributing to caffeine consumption. Denies lightheadedness or syncope. Did self administer one dose of Lovenox last night. MD complaint: right lower extremity pain and swelling Onset (ago): day(s) Location: right and lower extremity Related Data Previous Rx's ?Medication ?Instructions ?Recorded doxycycline monohydrate 100 mg 100 mg PO BID #14 caps 11/26/24 capsule ketorolac 10 mg tablet 10 mg PO Q8H PRN pain 3 days #9 11/26/24 tabs apixaban 5 mg (74 tabs) tablets in 5 mg PO BID #74 ea 01/24/25 a dose pack (Eliquis DVT-PE Treat 30D Start) oxycodone 5 mg tablet 5 mg PO Q8H PRN severe pain (scale 01/24/25 score 7-10) #9 tabs Allergies Allergy/AdvReac Type Severity Reaction Status Date / Time amoxicillin [From Augmentin] Allergy Severe Vomiting Verified 01/24/25 08:29 clavulanic acid Allergy Severe Vomiting Verified 01/24/25 08:29 [From Augmentin] nickel Allergy Hives Verified 01/24/25 08:29 levofloxacin [From Levaquin] AdvReac Anaphylaxis Verified 01/24/25 08:29 Review of Systems Review of Systems: As per HPI Yes all other systems are reviewed and are negative Constitutional: Constitutional: Reports as per HPI PMFSH Past Medical History Medical History Asthma Lupus Social History Social History Alcohol intake: current Alcohol intake frequency: a few times a month Advance Directives: Yes Advance Directives Information Provided: Yes Advance Directives on File: No Do you have a plan to hurt others: No Plan Physical Exam ED Vital Signs: Vital Signs - 24 hr 01/24/25 08:27 01/24/25 11:12 01/24/25 12:10 Temperature 97.5 F 97.6 F Pulse Rate 75 76 74 Respiratory Rate 14 20 16 Blood Pressure 132/80 146/79 H 153/69 H Pulse Oximetry 95 99 100 Oxygen Delivery Method Room Air Room Air Room Air 01/24/25 12:11 Temperature Pulse Rate Respiratory Rate Blood Pressure Pulse Oximetry 100 Oxygen Delivery Method BMI result Body Mass Index 42.0 Vital signs have been reviewed and appear to be correct. Blood pressure normal. Heart rate normal. Respiratory rate normal. Temperature normal. Oxygen saturation normal. Const General: cooperative, healthy appearing and no acute distress Orientation/consciousness: oriented to person, oriented to place, oriented to time and patient oriented x3 Limitations: no limitations HENMT Head: Yes normocephalic and Yes atraumatic Ears: external ears normal General nose exam: Normal external nose present Face and sinus: Yes face symmetric Mouth: oropharynx normal and moist mucous membranes Throat: Yes uvula midline Eyes Pupils: Equal, round and reactive pupils present Neck Neck: Yes normal visual inspection and Yes supple Resp Effort & Inspection: normal respiratory effort and able to speak in complete sentences Auscultation: clear to auscultation bilaterally Cardio Rate: regular rate Rhythm: regular rhythm Heart sounds: S1 normal heart sound present and S2 normal heart sound present GI Palpation (GI): Soft to palpation and nontender Auscultation: normoactive bowel sounds General: Yes no CVA tenderness Back/Spine/Pelvis Back: no CVA tenderness Skin General skin exam: elasticity normal and turgor normal Neuro General: oriented to person, oriented to place, oriented to time, patient oriented x3, moves all extremities, no focal motor deficits and CN's II-XI intact bilaterally Cranial nerves: Yes Equal, round and reactive pupils present Cognition (Neuro): normal cognition Extrem General: Yes full ROM, Yes no pedal edema and Yes no calf tenderness Right lower extremity: lower leg Details: tenderness Location: of the posterior calf and localized swelling Location: of the proximal lower leg and foot Details: vascular exam Details: dorsalis pedis pulse present, posterior tibial pulse present and normal capillary refill Psych Mental Status: mental status grossly normal Affect: normal affect Thought process: Normal thought process present Medications Administered Discontinued Medications Generic Name Dose Route Start Last Admin Trade Name Stevo PRN Reason Stop Dose Admin Iohexol 100 ml 01/24/25 10:22 01/24/25 10:23 Iohexol 350 Mg/Ml 100 Ml Infus..Btl IV 01/24/25 10:23 65 ml ONCE ONE Administration Ketorolac Tromethamine 30 mg 01/24/25 08:43 01/24/25 08:48 Ketorolac Tromethamine 30 Mg/Ml Vial IM 01/24/25 08:44 30 mg ONCE ONE Administration Medical Decision Making Medical Decision Making [facility] Narrative: Patient is a 54-year-old female with history DVT/PE s/p EKOS two years ago, now off of Xarelto, history of stage I endometrial cancer s/p surgery, radiation and chemo, asthma, lupus, history of RLE varicose veins s/p endovenous ablation of the right GSV w/ Dr. Schaffer on 11/20/24 presenting with right calf pain and swelling since Saturday. On exam patient is awake, A+Ox3, VS WNL, afebrile, normal neurological exam without focal deficits, physical exam findings as above. Given reported symptoms and physical exam findings, initial differential includes but is not limited to DVT, Arnold's cyst, muscle strain. Patient denies chest pain or dyspnea but has history of saddle PE, CA, is high risk, will obtain CTA chest. Labs unremarkable. U/S of RLE notable for DVT from distal superficial femoral vein through popliteal. CTA chest notable for PE to RUL, RML, and bilateral lower lobe segmental and subsegmental pulmonary arteries without evidence of right heart strain as well as nodule to left lower lobe. My interpretation is in agreement with the radiologist's interpretation. EKG shows NSR. Results discussed with patient and hospital admission recommended. Patient declining admission at this time, states she has no one to care for her dogs. Ambulatory O2 sat 100%, patient is without chest pain or dyspnea and no evidence of right heart strain on CT. 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 I am comfortable with discharge home. Will refer to Dr. Brock for further evaluation of pulmonary nodule in the setting of recent treatment for endometrial CA. Will discharge home on Eliquis, advised patient to follow up with Dr. Schaffer as well. Will send prescription for oxycodone for severe pain. Return precautions discussed at bedside. Patient verbalized understanding of and agreement with plan. Differential Diagnosis Differential Diagnoses: The differential diagnosis associated with the presentation includes As per [facility] Admission/Observation Consideration of admission/observation: Escalation of care including admission/observation considered Recommended, patient declined Lab Data [facility] Lab Attestation statement: I reviewed the patient's lab results. As per [facility] 01/24/25 09:00 01/24/25 08:59 Labs: Lab Results 01/24/25 01/24/25 Range/Units 08:59 09:00 WBC 5.6 (4.8-10.8) X10*3/uL RBC 4.35 (4.20-5.50) X10*6/uL Hgb 12.4 (12.0-16.0) g/dl Hct 36.1 L (37.0-47.0) % MCV 83.0 (80.0-98.0) fL MCH 28.5 (27.0-33.0) pg MCHC 34.3 (31.0-35.0) g/dl RDW 13.2 (11.0-16.0) % Plt Count 173 (160-400) X10*3/uL MPV 9.0 L (9.4-12.3) fL Immature Gran % (Auto) 0.2 (0.0-0.4) % Neut % (Auto) 47.7 (45-73) % Lymph % (Auto) 36.3 (20-40) % Thomas % (Auto) 9.4 (2-11) % Eos % (Auto) 5.9 H (0-4) % Baso % (Auto) 0.5 (0-2) % Lymph # (Auto) 2.1 (1.2-4.9) X10*3/uL Thomas # (Auto) 0.5 (0.1-1.2) X10*3/uL Eos # (Auto) 0.3 (0.0-0.4) X10*3/uL Baso # (Auto) 0.0 (0.0-0.2) X10*3/uL Abs Immat Gran (auto) 0.01 (0.00-0.03) X10*3/uL Absolute Neuts (auto) 2.7 (2.0-8.3) x10*3/uL Absolute Nucleated RBC 0.000 (0.0-0.012) X10*3/uL Nucleated RBC % (auto) 0.0 (0.0-0.2) /100WBC PT 11.7 (10.9-12.4) SEC INR 1.0 (0.9-1.1) Sodium 140 (135-145) mmol/L Potassium 3.8 (3.3-5.1) mmol/L Chloride 111 H (96-108) mmol/L Carbon Dioxide 22 (22-29) mmol/L Anion Gap 11 L (12-20) BUN 12 (9-16) mg/dL Creatinine 0.91 (0.5-1.4) mg/dL Estim Creat Clear Calc 93.3 Estimated GFR > 60 Random Glucose 114 (60-115) mg/dL Calcium 9.0 D (8.4-10.2) mg/dL Total Bilirubin 0.5 (0.0-1.0) mg/dL AST 15 (5-31) U/L ALT 18 (0-31) U/L Alkaline Phosphatase 75 (39-117) U/L Total Protein 6.9 (6.5-8.0) g/dL Albumin 3.5 (3.5-5.0) g/dL Independent Interpretation I performed an independent interpretation of an: Ultrasound and CT Scan Interpretation: U/S of RLE notable for DVT from distal superficial femoral vein through popliteal. CTA chest notable for PE to RUL, RML, and bilateral lower lobe segmental and subsegmental pulmonary arteries without evidence of right heart strain as well as nodule to left lower lobe. Radiology Impression Discussion of test interpretation with radiology: I have reviewed the radiologist's reading. Radiologist Impression: Findings: There is deep venous thrombosis from the distal superficial femoral vein through the popliteal vein. No popliteal cyst. The rest of the deep venous system of the right lower extremity is patent. IMPRESSION: There is deep venous thrombosis from the distal superficial femoral vein through the popliteal vein. IMPRESSION: 1. Acute pulmonary emboli within the right upper lobe, right middle lobe, and bilateral lower lobe segmental and subsegmental pulmonary arteries. No evidence of right heart strain. 2. 1.7 cm left lower lobe nodule adjacent to the diaphragm. According to Fleischner society guidelines, recommend three-month follow-up CT chest, PET/CT, or tissue sampling for further evaluation. External Record Review External record reviewed: Inpatient record, Office record and Outpatient record Prescription Management I considered prescription management with: Pain Medication and Other Discharge Plan Discharge Clinical Impression: Deep vein thrombosis (DVT) of right lower extremity, Pulmonary emboli Patient Disposition: Home, Self-Care Instructions: Apixaban (By mouth), Deep Vein Thrombosis (ED) Additional Instructions: You were evaluated in the emergency department today for right leg pain. Your ultrasound showed evidence of a DVT. The CT scan of your chest also showed pulmonary. You are being started on Eliquis. Call Dr. Schaffer to schedule a follow up appointment. We also recommend following up on lung nodule with Dr. Brock. You are being prescribed oxycodone for severe pain. Return to the emergency department if you develop chest pain, shortness of breath or difficulty breathing, fever, dizziness, lightheadedness, fainting, or any other new or concerning symptoms. CLINICAL HISTORY: calf pain and swelling Venous duplex ultrasound right lower extremity Comparison: 11/26/2024 Findings: There is deep venous thrombosis from the distal superficial femoral vein through the popliteal vein. No popliteal cyst. The rest of the deep venous system of the right lower extremity is patent. IMPRESSION: There is deep venous thrombosis from the distal superficial femoral vein through the popliteal vein. CLINICAL HISTORY: calf pain and swelling, hx saddle PE CT angiography chest with contrast. 3D Postprocessing. Comparison: None Findings: The heart is normal in size. The RV/LV ratio is normal. There is no pericardial effusion. The thyroid gland appears normal. There is no mediastinal, hilar, or axillary lymphadenopathy. Acute pulmonary emboli are seen within the right upper lobe, right middle lobe, and bilateral lower lobe segmental and subsegmental branches. 1.7 cm left lower lobe nodule is seen adjacent to the diaphragm (axial image 42 of series 5). Limited examination of the upper abdomen demonstrates no significant abnormality. Mild degenerative changes are seen in the spine. No acute fractures. IMPRESSION: 1. Acute pulmonary emboli within the right upper lobe, right middle lobe, and bilateral lower lobe segmental and subsegmental pulmonary arteries. No evidence of right heart strain. 2. 1.7 cm left lower lobe nodule adjacent to the diaphragm. According to Fleischner society guidelines, recommend three-month follow-up CT chest, PET/CT, or tissue sampling for further evaluation. Prescriptions: New Eliquis DVT-PE Treat 30D Start 5 mg (74 tabs) tablets,dose pack 5 mg PO BID Qty: 74 0RF Rx Instructions: Take 10mg (2 tabs) twice daily for one week, then 5mg (1 tab) twice daily after that oxycodone 5 mg tablet 5 mg PO Q8H PRN (Reason: severe pain (scale score 7-10)) Qty: 9 0RF Rx Instructions: Partial Fill upon patient request. No Action doxycycline monohydrate 100 mg capsule 100 mg PO BID Qty: 14 0RF ketorolac 10 mg tablet 10 mg PO Q8H PRN (Reason: pain) 3 Days Qty: 9 0RF Referrals: Pietro Schaffer MD [Physician] - Jazmin Brock MD [Physician] - Stand Alone Forms: Work/School Release Print Language: Italian
[2025-01-24] MEDS: Ketorolac Tromethamine 30 MG/ML VIAL IM (08:48)
[2025-01-24 09:05] LABS: MANUAL DIFF FLAG NO
[2025-01-24 09:07] LABS: Basophils Percent Auto 0.5 % (0-2); Eosinophils Absolute Auto 0.3 X10*3/uL (0.0-0.4); Eosinophils Percent Auto 5.9 % (0-4); Hematocrit 36.1 % (37.0-47.0); Hemoglobin 12.4 g/dl (12.0-16.0); Imm Gran Abs Auto 0.01 X10*3/uL (0.00-0.03); Imm Gran Pct Auto 0.2 % (0.0-0.4); Lymphocytes Absolute Auto 2.1 X10*3/uL (1.2-4.9); Lymphocytes Percent Auto 36.3 % (20-40); Mean Corpuscular HGB Conc 34.3 g/dl (31.0-35.0); Mean Corpuscular Hemoglobin 28.5 pg (27.0-33.0); Monocytes Absolute Auto 0.5 X10*3/uL (0.1-1.2); Monocytes Percent Auto 9.4 % (2-11); Neutrophils Absolute Auto 2.7 x10*3/uL (2.0-8.3); Neutrophils Percent Auto 47.7 % (45-73); Platelet Count 173 X10*3/uL (160-400); Red Blood Count 4.35 X10*6/uL (4.20-5.50); Red Cell Distribution Width 13.2 % (11.0-16.0); White Blood Count 5.6 X10*3/uL (4.8-10.8)
[2025-01-24 09:11] LABS: Prothrombin Time 11.7 SEC (10.9-12.4)
[2025-01-24 09:22] LABS: Alanine Aminotransferase 18 U/L (0-31); Albumin Level 3.5 g/dL (3.5-5.0); Alkaline Phosphatase 75 U/L (39-117); Anion Gap 11 (12-20); Aspartate Amino Transferase 15 U/L (5-31); Bilirubin Total 0.5 mg/dL (0.0-1.0); Blood Urea Nitrogen 12 mg/dL (9-16); Carbon Dioxide 22 mmol/L (22-29); Chloride 111 mmol/L (96-108); Creatinine Clr Calc Pharmacy 93.3; Estimated Glomerular Filt Rate > 60; Glucose Random 114 mg/dL (60-115); Potassium 3.8 mmol/L (3.3-5.1); Sodium 140 mmol/L (135-145); Total Protein 6.9 g/dL (6.5-8.0)
[2025-01-24] MEDS: iohexoL 350 MG/ML 100 ML INFUS..BTL IV (10:23)
--- NOTE | 2025-01-24 10:28 | PC.NURSE ---
patient states pain is managed with toradol injection, medicated per MAR. patient has positive pedal pulse on left foot.
--- NOTE | 2025-01-24 10:55 | ECG_ITS ---
Test Reason : HISTORY OF PE'S Blood Pressure : */* mmHG Vent. Rate : 80 BPM Atrial Rate : 80 BPM P-R Int : 160 ms QRS Dur : 88 ms QT Int : 408 ms P-R-T Axes : 45 8 27 degrees QTcB Int : 470 ms Normal sinus rhythm Nonspecific T wave abnormality Abnormal ECG No previous ECGs available Referred By: Kristin Moctezuma Electronically Signed By: Tj Mendez
[2025-01-24 11:12] VITALS: BP 146/79; PULSE 76; RESP 20; O2SAT 99
[2025-01-24 12:10] VITALS: BP 153/69; PULSE 74; RESP 16; TEMP 36.4; O2SAT 100
[2025-01-24 12:11] VITALS: O2SAT 100
== END 2025-01-24 13:10 | disposition home or self-care (01) ==
PROVIDERS: Registered Nurse Emergency; Emergency Provider Emergency Medicine; PCP Physician Assistant
DX: I82.411 Acute embolism and thrombosis of right femoral vein (principal); I82.431 Acute embolism and thrombosis of right popliteal vein; I26.99 Other pulmonary embolism without acute cor pulmonale; M79.661 Pain in right lower leg; J45.909 Unspecified asthma, uncomplicated; C54.1 Malignant neoplasm of endometrium; Z92.21 Personal history of antineoplastic chemotherapy; Z92.3 Personal history of irradiation; Z79.899 Other long term (current) drug therapy
CPT/HCPCS: 36415; 71275; 80053; 85025; 85610; 93005; 93971; 96372; 99284; J1885; Q9967

== ENCOUNTER → 2025-01-24 08:36 | Outpatient (BNV) | payer OTHER, SELFPAY | PROVIDERS: Emergency Provider Emergency Medicine; PCP Physician Assistant; Visit Provider Radiology Diagnostic Radiology | DX: I26.99 Other pulmonary embolism without acute cor pulmonale (principal); R91.1 Solitary pulmonary nodule; I82.411 Acute embolism and thrombosis of right femoral vein; I82.431 Acute embolism and thrombosis of right popliteal vein | CPT/HCPCS: 71275; 93971 ==

== ENCOUNTER → 2025-01-24 10:55 | Outpatient (BNV) | payer OTHER, SELFPAY | PROVIDERS: Emergency Provider Emergency Medicine; PCP Physician Assistant; Visit Provider Internal Medicine Cardiovascular Disease | DX: R94.31 Abnormal electrocardiogram [ECG] [EKG] (principal); R60.0 Localized edema | CPT/HCPCS: 93010 ==

== ENCOUNTER → 2025-02-02 08:52 | Outpatient (BNV) | payer OTHER, SELFPAY | PROVIDERS: PCP Physician Assistant; Visit Provider Internal Medicine Medical Oncology | DX: I82.401 Acute embolism and thrombosis of unspecified deep veins of right lower extremity (principal); I26.99 Other pulmonary embolism without acute cor pulmonale; Z79.01 Long term (current) use of anticoagulants | CPT/HCPCS: 99204 ==

== ENCOUNTER 2025-02-04 11:34 | Outpatient (REF) | payer OTHER, SELFPAY ==
--- NOTE | ~2025-02-04 | US_ITS ---
EXAMINATION: US THYROID CLINICAL INFORMATION: Follow-up thyroid nodule. COMPARISON: Correlated to CT angiogram chest dated January 24, 2025. No prior ultrasound in our system.. TECHNIQUE: Linear transducer grayscale and color Doppler examination with attention to the region of the thyroid. FINDINGS: SIZE: Measurements of the thyroid lobes and nodules are given in sagittal, anteroposterior and transverse dimensions respectively. Right Thyroid Lobe: 5 x 1.6 x 1.5 cm, volume 6.2 mL. Parenchyma: The gland echotexture is normal. Thyroid vascularity is normal. Left Thyroid Lobe: 5.1 x 1.5 x 1.9 cm, volume 7.4 mL. Parenchyma: The gland echotexture is normal. Thyroid vascularity is normal. Isthmus: 0.4 cm in maximum AP dimension. Estimated total number of nodules greater than or equal to 1 cm: 0. Fiber Optic Assembler nodules are described as follows: 1. Location: Right mid lobe.. Size: 0.7 x 0.6 x 0.6 cm, volume 0.1 mL. Nodule characteristics: Composition: Solid/almost completely solid (2). Echogenicity: Hyperechoic (1). Shape: Not taller than wide (0). Margins: Ill-defined (0). Echogenic Foci: None (0). ACR TI-RADS total points: 3 ACR TI-RADS category: 3 NODES: Scattered less than 1.3 cm lymph nodes with fatty hilum, nonspecific. US/US thyroid IMPRESSION: ACR TI-RADS category: 3 ACR TI-RADS RECOMMENDATION REFERENCE: Ultrasound-guided fine-needle aspiration, followup ultrasound, no further follow up. * TR1 (0 point) and TR2 (2 points): No FNA or follow up. * TR3 (3 points): FNA if more than or equal to 2.5 cm in maximum dimension, followup ultrasound in 1, 3 and 5 years if 1.5 to 2.4 cm in maximum dimension. * TR4 (4-6 points): FNA if more than or equal to 1.5 cm in maximum dimension, followup ultrasound in 1, 2, 3 and 5 years if 1 to 1.4 cm in maximum dimension. * TR5 (more than or equal to 7 points): FNA if more than or equal to 1 cm in maximum dimension, followup ultrasound every year for 5 years if 0.5 to 0.9 cm in maximum dimension. * TR3, TR4 or TR5 nodules that are below the size threshold for followup receive no follow up. Electronically signed by: Angelito Gu MD 02/04/2025 12:59 PM EDT
--- OUTSIDE RECORDS SUMMARY | 2025-02-04 15:08 | XMS_ITS ---
Author Organization [facility] Address [address] [place] [id number] Care Team Providers Care Transportation Planner Name Role Phone Aimee Heard Unavailable [phone] ALLERGIES Allergen (clinical drug ingredient) Drug/Non Drug Allergy documented on EMR Reaction Allergy Type Onset Date Status Levaquin anaphylaxis Drug Allergy Activ e REASON FOR VISIT Pt here for weight management consult, SECA done and pt received Tirzepatide 2.5mg on RLQ sub q, pttolerated well with no reaction. MEDICATIONS Medication SIG (Take, Route, Fr equency, Duration) Notes Start Date End Date Status Ondansetron HCl 4 MG 1 tablet Orally Onc e a day for 20 days 01/16/2024 Active Multivitamin - 1 tablet Orally Once a day Active Mounjaro 2.5 MG/0.5ML as directed Subcut aneous once weekly for 30 days 01/16/2024 Active SOCIAL HISTORY Tobacco Use: Social History Observation Description Date Details (start date - stop date) Never Smoker NA - NA Sex Assigned At : Social History Observation Description Sex Assigned At Unknown Tobacco Use/Smoking Question Answer Notes Are you a nonsmoker Alcohol Screen (Audit-C) Question Answer Notes Did you have a drink contain ing alcohol in the past year? Yes How often did you have a dri nk containing alcohol in the past year? 2 to 3 times a week (3 points) Points 3 Interpretation Positive PROBLEMS Problem Type ICD Code Onset Dates Problem Status W/U Status Risk SNOMED Code Notes Problem Morbid (severe) obesity due to excess calories (E66.01) Active confirmed 100843581 Problem Body mass index [BMI] 45.0-49.9, adult (Z68.42) Active confirmed 616730105 Problem Thyroid cyst (E04.1) Active confirmed 78499890 Problem Adrenal mass (E27.8) Active confirmed 942690405 VITAL SIGNS Blood pressure systolic 118 mm Hg 01/16/20 24 Blood pressure diastolic 78 mm Hg 024 Heart Rate 93 /min 01/16/2024 Height 56 in 01/16/2024 Weight 306 lbs 01/16/2024 BMI 68.6 kg/m2 01/16/2024 Oximetry 99 % 01/16/2024 Encounters Encounter Location Date Provider Diagnosis [facility] [address] [facility] [address] [place] [id number] 01/16/2024 Aimee Svrcek Morbid (severe) obes ity due to excess calories E66.01 ; Body mass index [BMI] 45.0-49.9, adult Z68.42 ; Thyroid cyst E04.1 ; Adrenal mass E27.8 ; History of pulmonary embolus (PE) Z86.711 and Prediabetes R73.03 ASSESSMENTS Encounter Date Diagnosis Assessment Notes Treatment Notes Treatment Clinical Notes Section Notes 01/16/2024 Morbid (severe) obesity due to excess calories (ICD-10 - E66.01) #Morbid obesity. 305.89 pounds, BMI 49.4. Lengthy discussion with patient in regards to weight loss medications. She has previously been on Mounjaro up to 7.5 mg with great success and loss of 50 pounds. Since being off medication for the last year and a half she has regained the weight. Ultimately she would like to resume Mounjaro. Discussed option of compounded semaglutide and compounded Tirzapeptide here in office. We reviewed cost associated with both compounding programs and escalating cost with escalating dose. She would like to start Vicky peptide today and was given 2.5 mg. We will submit Mounjaro to insurance for coverage. Discussed PA process can take 3 to 4 weeks. Will plan to follow-up in 1 week for nurse visit for next dose of Tirzapeptide 2.5 mg here in clinic. Discussed importance of Seca scale monitoring throughout process at every visit. Reviewed calorie and protein goals to aim to 80 to 100 g of protein daily continue with a goal of 10,000 steps a day. I have encouraged her to increase her water intake. She is also continuing to work on sleep habits and work towards 8 hours of sleep at night. Reviewed risk benefits and adverse effects of medication. She requested ondansetron to have on hand as she did have some nausea with Mounjaro in the past. Reviewed additional supplements including probiotics B complex vitamin and also discussed option of CECELIA which she declines today. #Thyroid cyst. 3 mm thyroid cyst noted on recent ultrasound. Normal TSH. She is followed by Dr. Javed with endocrinology. No personal or family history of medullary thyroid cancer. She was previously on Mounjaro and did quite well. #Adrenal mass. Followed by endocrinology will be having repeat testing for Sbeas's. #History of PE and DVT. Comprehensive workup with specialist in the past developed PE DVT post Moderna vaccine. No longer on blood thinners. #Prediabetes. Average blood sugar on recent labs estimated at 111, fasting blood sugar 100, A1c 5.5. She has previously done quite well on Mounjaro and would benefit from continuing. Weight Consult Plan: Patient has been found to be obese with a BMI of 49.4. Patient has class 3 obesity. Patient was reassured and welcomed to the practice. We discussed that we stress a hollistic medical approach with emphasis on lifestyle modification. Patient was informed that a healthy lifestyle with exercise and good eating habits can help reduce his risk of medical complications. He is explained that obesity increases his risk of diabetes, cardiovascular disease, or organ damage. We spent a lot of time discussing the relationship between food, exercise, sleep, mental health and obesity. Patient was counseled on the importance EATING local, organic food when possible. Patient was educated on clean 15 and dirty dozen. I provided information about reading books called The Food Rules by Andrew Toussaint and Eat Fat Get Lean by Dr Pedro Deluna. Self education is important in the journey for weight management. Patient was offered diagnostic testing. We want to measure visceral adiposity, advanced body composition, adverse lipids, fatty acid balance, risk for heart disease and atherosclerosis, markers of inflammation and genetic susceptibility. Patient was counseled on weight management and was advised to lose weight using B. Lifestyle management which includes several strategies as below 1. Eat a low carbohydrate good fat good protein diet. Eliminate refined carbohydrates from the diet. Continue blood sugar and sugared beverages. Eat local organic when possible. Cook your own meals. Read food labels. None about healthy snacks. Portion control and food with low glycemic index 2. Exercise regularly. Try to get at least 6000 steps a day. Use a predominant to track activity level. Consider using apps like Clearwave, myfitnesspal, lose it, stick as needed for self-monitoring and weight management. Consider group exercises. Consider hiring a personal lines advisor. Regular exercise is weaver to sustainable health and prevents as a buffer against weight regain 3. Sleep is most important for healing. Tried to sleep at least 8 hours a night. A good quality sleep needs a sleep ritual with ideal room temperature of around 68. It might help to take a shower and have no electronics in the room and sleep in a very dark room without artificial light. Start her sleep routine and get up early in the morning and go to bed on time 4. Make a social connection. Surround yourself with positive people with positive energy. Connect with friends and family. 5. Get into the habit of meditating and mindfulness while doing everything. 6. Go outside and connect with nature. C. Prescription medications Patient was educated on the use of prescription medications for medical weight loss. This is a growing list and includes phentermine, Topamax,Qsymia, contrave, belviq and saxenda. All prescription medications could have side effects including but not limited to kidney stones, seizure disorder cardiac arrhythmias heart attack pancreatitis etc. etc.. Patient was encouraged to read the prescription insert and have coaching with their pharmacist and make an informed decision about taking medication and know that these medications are being prescribed with good intentions and we do not know how a patient would react to her medication. Sudden medications are FDA approved for weight loss and there is also off label use depending on patient's inability to afford medications in an attempt to lose weight D. Behavioral counseling was done to establish a relationship between food and an mood. Patient was provided information about local counseling and psychiatry and Dr Ruiz at [facility]. We would like to cover regular topics and build on low glycemic eating exercise mindful eating, using yoga and meditation along with deep breathing and connecting with friends and family. E. MASS PAT reviewed, Patient's current medications were reviewed and opinion was given on medication that can cause weight gain and can be substituted F. Patient was assessed for risk with obesity including and not limiting to atherosclerosis heart disease stroke kidney disease, restrictive lung disease, irritable bowel syndrome and overall mortality. Risk of developing prediabetes diabetes and metabolic syndrome was discussed G. Therapeutic plan: We have decided to make therapeutic plan which would include choosing wisely on calories restricting portion getting active, tracking weight, getting good quality sleep and working on time management H. Patient will follow up in (4) weeks for weight management Total time spent today was 45 minutes of which greater than 50% was spent on coordinating and counseling Case discussed with collaborating physician Anuradha Vega who reviewed the assessment and plan. Chart, medications, labs, vital signs reviewed. Dictation was accomplished with the use of Minderest voice recognition software, prone to medical misidentifications and grammatical errors. This is unintentional and the practitioner does try to identify and correct these, but some could still be present. Please do not hesitate to contact practitioner for clarification. All questions answered to patients satisfaction. Patient verbalized understanding of diagnosis and treatments explained. To call sooner prior to next visit it any questions/concerns arise. 01/16/2024 Body mass index [BMI] 45.0-49.9, adult (ICD-10 - Z68.42) #Morbid obesity. 305.89 pounds, BMI 49.4. Lengthy discussion with patient in regards to weight loss medications. She has previously been on Mounjaro up to 7.5 mg with great success and loss of 50 pounds. Since being off medication for the last year and a half she has regained the weight. Ultimately she would like to resume Mounjaro. Discussed option of compounded semaglutide and compounded Tirzapeptide here in office. We reviewed cost associated with both compounding programs and escalating cost with escalating dose. She would like to start Vicky peptide today and was given 2.5 mg. We will submit Mounjaro to insurance for coverage. Discussed PA process can take 3 to 4 weeks. Will plan to follow-up in 1 week for nurse visit for next dose of Tirzapeptide 2.5 mg here in clinic. Discussed importance of Seca scale monitoring throughout process at every visit. Reviewed calorie and protein goals to aim to 80 to 100 g of protein daily continue with a goal of 10,000 steps a day. I have encouraged her to increase her water intake. She is also continuing to work on sleep habits and work towards 8 hours of sleep at night. Reviewed risk benefits and adverse effects of medication. She requested ondansetron to have on hand as she did have some nausea with Mounjaro in the past. Reviewed additional supplements including probiotics B complex vitamin and also discussed option of CECELIA which she declines today. #Thyroid cyst. 3 mm thyroid cyst noted on recent ultrasound. Normal TSH. She is followed by Dr. Javed with endocrinology. No personal or family history of medullary thyroid cancer. She was previously on Mounjaro and did quite well. #Adrenal mass. Followed by endocrinology will be having repeat testing for [place]'s. #History of PE and DVT. Comprehensive workup with specialist in the past developed PE DVT post Moderna vaccine. No longer on blood thinners. #Prediabetes. Average blood sugar on recent labs estimated at 111, fasting blood sugar 100, A1c 5.5. She has previously done quite well on Mounjaro and would benefit from continuing. Weight Consult Plan: Patient has been found to be obese with a BMI of 49.4. Patient has class 3 obesity. Patient was reassured and welcomed to the practice. We discussed that we stress a hollistic medical approach with emphasis on lifestyle modification. Patient was informed that a healthy lifestyle with exercise and good eating habits can help reduce his risk of medical complications. He is explained that obesity increases his risk of diabetes, cardiovascular disease, or organ damage. We spent a lot of time discussing the relationship between food, exercise, sleep, mental health and obesity. Patient was counseled on the importance EATING local, organic food when possible. Patient was educated on clean 15 and dirty dozen. I provided information about reading books called The Food Rules by Andrew Toussaint and Eat Fat Get Lean by Dr Pedro Deluna. Self education is important in the journey for weight management. Patient was offered diagnostic testing. We want to measure visceral adiposity, advanced body composition, adverse lipids, fatty acid balance, risk for heart disease and atherosclerosis, markers of inflammation and genetic susceptibility. Patient was counseled on weight management and was advised to lose weight using B. Lifestyle management which includes several strategies as below 1. Eat a low carbohydrate good fat good protein diet. Eliminate refined carbohydrates from the diet. Continue blood sugar and sugared beverages. Eat local organic when possible. Cook your own meals. Read food labels. None about healthy snacks. Portion control and food with low glycemic index 2. Exercise regularly. Try to get at least 6000 steps a day. Use a predominant to track activity level. Consider using apps like 7 mionute excercise, myfitnesspal, lose it, stick as needed for self-monitoring and weight management. Consider group exercises. Consider hiring a personal lines advisor. Regular exercise is weaver to sustainable health and prevents as a buffer against weight regain 3. Sleep is most important for healing. Tried to sleep at least 8 hours a night. A good quality sleep needs a sleep ritual with ideal room temperature of around 68. It might help to take a shower and have no electronics in the room and sleep in a very dark room without artificial light. Start her sleep routine and get up early in the morning and go to bed on time 4. Make a social connection. Surround yourself with positive people with positive energy. Connect with friends and family. 5. Get into the habit of meditating and mindfulness while doing everything. 6. Go outside and connect with nature. C. Prescription medications Patient was educated on the use of prescription medications for medical weight loss. This is a growing list and includes phentermine, Topamax,Qsymia, contrave, belviq and saxenda. All prescription medications could have side effects including but not limited to kidney stones, seizure disorder cardiac arrhythmias heart attack pancreatitis etc. etc.. Patient was encouraged to read the prescription insert and have coaching with their pharmacist and make an informed decision about taking medication and know that these medications are being prescribed with good intentions and we do not know how a patient would react to her medication. Sudden medications are FDA approved for weight loss and there is also off label use depending on patient's inability to afford medications in an attempt to lose weight D. Behavioral counseling was done to establish a relationship between food and an mood. Patient was provided information about local counseling and psychiatry and Dr Ruiz at [facility]. We would like to cover regular topics and build on low glycemic eating exercise mindful eating, using yoga and meditation along with deep breathing and connecting with friends and family. E. MASS PAT reviewed, Patient's current medications were reviewed and opinion was given on medication that can cause weight gain and can be substituted F. Patient was assessed for risk with obesity including and not limiting to atherosclerosis heart disease stroke kidney disease, restrictive lung disease, irritable bowel syndrome and overall mortality. Risk of developing prediabetes diabetes and metabolic syndrome was discussed G. Therapeutic plan: We have decided to make therapeutic plan which would include choosing wisely on calories restricting portion getting active, tracking weight, getting good quality sleep and working on time management H. Patient will follow up in (4) weeks for weight management Total time spent today was 45 minutes of which greater than 50% was spent on coordinating and counseling Case discussed with collaborating physician Anuradha Vega who reviewed the assessment and plan. Chart, medications, labs, vital signs reviewed. Dictation was accomplished with the use of Minderest voice recognition software, prone to medical misidentifications and grammatical errors. This is unintentional and the practitioner does try to identify and correct these, but some could still be present. Please do not hesitate to contact practitioner for clarification. All questions answered to patients satisfaction. Patient verbalized understanding of diagnosis and treatments explained. To call sooner prior to next visit it any questions/concerns arise. 01/16/2024 Thyroid cyst (ICD-10 - E04.1) #Morbid obesity. 305.89 pounds, BMI 49.4. Lengthy discussion with patient in regards to weight loss medications. She has previously been on Mounjaro up to 7.5 mg with great success and loss of 50 pounds. Since being off medication for the last year and a half she has regained the weight. Ultimately she would like to resume Mounjaro. Discussed option of compounded semaglutide and compounded Tirzapeptide here in office. We reviewed cost associated with both compounding programs and escalating cost with escalating dose. She would like to start Vicky peptide today and was given 2.5 mg. We will submit Mounjaro to insurance for coverage. Discussed PA process can take 3 to 4 weeks. Will plan to follow-up in 1 week for nurse visit for next dose of Tirzapeptide 2.5 mg here in clinic. Discussed importance of Seca scale monitoring throughout process at every visit. Reviewed calorie and protein goals to aim to 80 to 100 g of protein daily continue with a goal of 10,000 steps a day. I have encouraged her to increase her water intake. She is also continuing to work on sleep habits and work towards 8 hours of sleep at night. Reviewed risk benefits and adverse effects of medication. She requested ondansetron to have on hand as she did have some nausea with Mounjaro in the past. Reviewed additional supplements including probiotics B complex vitamin and also discussed option of CECELIA which she declines today. #Thyroid cyst. 3 mm thyroid cyst noted on recent ultrasound. Normal TSH. She is followed by Dr. Javed with endocrinology. No personal or family history of medullary thyroid cancer. She was previously on Mounjaro and did quite well. #Adrenal mass. Followed by endocrinology will be having repeat testing for Sebas's. #History of PE and DVT. Comprehensive workup with specialist in the past developed PE DVT post Moderna vaccine. No longer on blood thinners. #Prediabetes. Average blood sugar on recent labs estimated at 111, fasting blood sugar 100, A1c 5.5. She has previously done quite well on Mounjaro and would benefit from continuing. Weight Consult Plan: Patient has been found to be obese with a BMI of 49.4. Patient has class 3 obesity. Patient was reassured and welcomed to the practice. We discussed that we stress a hollistic medical approach with emphasis on lifestyle modification. Patient was informed that a healthy lifestyle with exercise and good eating habits can help reduce his risk of medical complications. He is explained that obesity increases his risk of diabetes, cardiovascular disease, or organ damage. We spent a lot of time discussing the relationship between food, exercise, sleep, mental health and obesity. Patient was counseled on the importance EATING local, organic food when possible. Patient was educated on clean 15 and dirty dozen. I provided information about reading books called The Food Rules by Andrew Toussaint and Eat Fat Get Lean by Dr Pedro Deluna. Self education is important in the journey for weight management. Patient was offered diagnostic testing. We want to measure visceral adiposity, advanced body composition, adverse lipids, fatty acid balance, risk for heart disease and atherosclerosis, markers of inflammation and genetic susceptibility. Patient was counseled on weight management and was advised to lose weight using B. Lifestyle management which includes several strategies as below 1. Eat a low carbohydrate good fat good protein diet. Eliminate refined carbohydrates from the diet. Continue blood sugar and sugared beverages. Eat local organic when possible. Cook your own meals. Read food labels. None about healthy snacks. Portion control and food with low glycemic index 2. Exercise regularly. Try to get at least 6000 steps a day. Use a predominant to track activity level. Consider using apps like Clearwave, SpecifiedBypal, lose it, stick as needed for self-monitoring and weight management. Consider group exercises. Consider hiring a personal lines advisor. Regular exercise is weaver to sustainable health and prevents as a buffer against weight regain 3. Sleep is most important for healing. Tried to sleep at least 8 hours a night. A good quality sleep needs a sleep ritual with ideal room temperature of around 68. It might help to take a shower and have no electronics in the room and sleep in a very dark room without artificial light. Start her sleep routine and get up early in the morning and go to bed on time 4. Make a social connection. Surround yourself with positive people with positive energy. Connect with friends and family. 5. Get into the habit of meditating and mindfulness while doing everything. 6. Go outside and connect with nature. C. Prescription medications Patient was educated on the use of prescription medications for medical weight loss. This is a growing list and includes phentermine, Topamax,Qsymia, contrave, belviq and saxenda. All prescription medications could have side effects including but not limited to kidney stones, seizure disorder cardiac arrhythmias heart attack pancreatitis etc. etc.. Patient was encouraged to read the prescription insert and have coaching with their pharmacist and make an informed decision about taking medication and know that these medications are being prescribed with good intentions and we do not know how a patient would react to her medication. Sudden medications are FDA approved for weight loss and there is also off label use depending on patient's inability to afford medications in an attempt to lose weight D. Behavioral counseling was done to establish a relationship between food and an mood. Patient was provided information about local counseling and psychiatry and Dr Ruiz at [facility]. We would like to cover regular topics and build on low glycemic eating exercise mindful eating, using yoga and meditation along with deep breathing and connecting with friends and family. E. MASS PAT reviewed, Patient's current medications were reviewed and opinion was given on medication that can cause weight gain and can be substituted F. Patient was assessed for risk with obesity including and not limiting to atherosclerosis heart disease stroke kidney disease, restrictive lung disease, irritable bowel syndrome and overall mortality. Risk of developing prediabetes diabetes and metabolic syndrome was discussed G. Therapeutic plan: We have decided to make therapeutic plan which would include choosing wisely on calories restricting portion getting active, tracking weight, getting good quality sleep and working on time management H. Patient will follow up in (4) weeks for weight management Total time spent today was 45 minutes of which greater than 50% was spent on coordinating and counseling Case discussed with collaborating physician Anuradha Vega who reviewed the assessment and plan. Chart, medications, labs, vital signs reviewed. Dictation was accomplished with the use of Minderest voice recognition software, prone to medical misidentifications and grammatical errors. This is unintentional and the practitioner does try to identify and correct these, but some could still be present. Please do not hesitate to contact practitioner for clarification. All questions answered to patients satisfaction. Patient verbalized understanding of diagnosis and treatments explained. To call sooner prior to next visit it any questions/concerns arise. 01/16/2024 Adrenal mass (ICD-10 - E27.8) #Morbid obesity. 305.89 pounds, BMI 49.4. Lengthy discussion with patient in regards to weight loss medications. She has previously been on Mounjaro up to 7.5 mg with great success and loss of 50 pounds. Since being off medication for the last year and a half she has regained the weight. Ultimately she would like to resume Mounjaro. Discussed option of compounded semaglutide and compounded Tirzapeptide here in office. We reviewed cost associated with both compounding programs and escalating cost with escalating dose. She would like to start Vicky peptide today and was given 2.5 mg. We will submit Mounjaro to insurance for coverage. Discussed PA process can take 3 to 4 weeks. Will plan to follow-up in 1 week for nurse visit for next dose of Tirzapeptide 2.5 mg here in clinic. Discussed importance of Seca scale monitoring throughout process at every visit. Reviewed calorie and protein goals to aim to 80 to 100 g of protein daily continue with a goal of 10,000 steps a day. I have encouraged her to increase her water intake. She is also continuing to work on sleep habits and work towards 8 hours of sleep at night. Reviewed risk benefits and adverse effects of medication. She requested ondansetron to have on hand as she did have some nausea with Mounjaro in the past. Reviewed additional supplements including probiotics B complex vitamin and also discussed option of CECELIA which she declines today. #Thyroid cyst. 3 mm thyroid cyst noted on recent ultrasound. Normal TSH. She is followed by Dr. Javed with endocrinology. No personal or family history of medullary thyroid cancer. She was previously on Mounjaro and did quite well. #Adrenal mass. Followed by endocrinology will be having repeat testing for Sebas's. #History of PE and DVT. Comprehensive workup with specialist in the past developed PE DVT post Moderna vaccine. No longer on blood thinners. #Prediabetes. Average blood sugar on recent labs estimated at 111, fasting blood sugar 100, A1c 5.5. She has previously done quite well on Mounjaro and would benefit from continuing. Weight Consult Plan: Patient has been found to be obese with a BMI of 49.4. Patient has class 3 obesity. Patient was reassured and welcomed to the practice. We discussed that we stress a hollistic medical approach with emphasis on lifestyle modification. Patient was informed that a healthy lifestyle with exercise and good eating habits can help reduce his risk of medical complications. He is explained that obesity increases his risk of diabetes, cardiovascular disease, or organ damage. We spent a lot of time discussing the relationship between food, exercise, sleep, mental health and obesity. Patient was counseled on the importance EATING local, organic food when possible. Patient was educated on clean 15 and dirty dozen. I provided information about reading books called The Food Rules by Andrew Toussaint and Eat Fat Get Lean by Dr Pedro Deluna. Self education is important in the journey for weight management. Patient was offered diagnostic testing. We want to measure visceral adiposity, advanced body composition, adverse lipids, fatty acid balance, risk for heart disease and atherosclerosis, markers of inflammation and genetic susceptibility. Patient was counseled on weight management and was advised to lose weight using B. Lifestyle management which includes several strategies as below 1. Eat a low carbohydrate good fat good protein diet. Eliminate refined carbohydrates from the diet. Continue blood sugar and sugared beverages. Eat local organic when possible. Cook your own meals. Read food labels. None about healthy snacks. Portion control and food with low glycemic index 2. Exercise regularly. Try to get at least 6000 steps a day. Use a predominant to track activity level. Consider using apps like Clearwave, myfit9Flavapal, lose it, stick as needed for self-monitoring and weight management. Consider group exercises. Consider hiring a personal lines advisor. Regular exercise is weaver to sustainable health and prevents as a buffer against weight regain 3. Sleep is most important for healing. Tried to sleep at least 8 hours a night. A good quality sleep needs a sleep ritual with ideal room temperature of around 68. It might help to take a shower and have no electronics in the room and sleep in a very dark room without artificial light. Start her sleep routine and get up early in the morning and go to bed on time 4. Make a social connection. Surround yourself with positive people with positive energy. Connect with friends and family. 5. Get into the habit of meditating and mindfulness while doing everything. 6. Go outside and connect with nature. C. Prescription medications Patient was educated on the use of prescription medications for medical weight loss. This is a growing list and includes phentermine, Topamax,Qsymia, contrave, belviq and saxenda. All prescription medications could have side effects including but not limited to kidney stones, seizure disorder cardiac arrhythmias heart attack pancreatitis etc. etc.. Patient was encouraged to read the prescription insert and have coaching with their pharmacist and make an informed decision about taking medication and know that these medications are being prescribed with good intentions and we do not know how a patient would react to her medication. Sudden medications are FDA approved for weight loss and there is also off label use depending on patient's inability to afford medications in an attempt to lose weight D. Behavioral counseling was done to establish a relationship between food and an mood. Patient was provided information about local counseling and psychiatry and Dr Ruiz at [facility]. We would like to cover regular topics and build on low glycemic eating exercise mindful eating, using yoga and meditation along with deep breathing and connecting with friends and family. E. MASS PAT reviewed, Patient's current medications were reviewed and opinion was given on medication that can cause weight gain and can be substituted F. Patient was assessed for risk with obesity including and not limiting to atherosclerosis heart disease stroke kidney disease, restrictive lung disease, irritable bowel syndrome and overall mortality. Risk of developing prediabetes diabetes and metabolic syndrome was discussed G. Therapeutic plan: We have decided to make therapeutic plan which would include choosing wisely on calories restricting portion getting active, tracking weight, getting good quality sleep and working on time management H. Patient will follow up in (4) weeks for weight management Total time spent today was 45 minutes of which greater than 50% was spent on coordinating and counseling Case discussed with collaborating physician Anuradha Vega who reviewed the assessment and plan. Chart, medications, labs, vital signs reviewed. Dictation was accomplished with the use of Minderest voice recognition software, prone to medical misidentifications and grammatical errors. This is unintentional and the practitioner does try to identify and correct these, but some could still be present. Please do not hesitate to contact practitioner for clarification. All questions answered to patients satisfaction. Patient verbalized understanding of diagnosis and treatments explained. To call sooner prior to next visit it any questions/concerns arise. 01/16/2024 History of pulmonary embolus (PE) (ICD-10 - Z86.711) #Morbid obesity. 305.89 pounds, BMI 49.4. Lengthy discussion with patient in regards to weight loss medications. She has previously been on Mounjaro up to 7.5 mg with great success and loss of 50 pounds. Since being off medication for the last year and a half she has regained the weight. Ultimately she would like to resume Mounjaro. Discussed option of compounded semaglutide and compounded Tirzapeptide here in office. We reviewed cost associated with both compounding programs and escalating cost with escalating dose. She would like to start Vicky peptide today and was given 2.5 mg. We will submit Mounjaro to insurance for coverage. Discussed PA process can take 3 to 4 weeks. Will plan to follow-up in 1 week for nurse visit for next dose of Tirzapeptide 2.5 mg here in clinic. Discussed importance of Seca scale monitoring throughout process at every visit. Reviewed calorie and protein goals to aim to 80 to 100 g of protein daily continue with a goal of 10,000 steps a day. I have encouraged her to increase her water intake. She is also continuing to work on sleep habits and work towards 8 hours of sleep at night. Reviewed risk benefits and adverse effects of medication. She requested ondansetron to have on hand as she did have some nausea with Mounjaro in the past. Reviewed additional supplements including probiotics B complex vitamin and also discussed option of CECELIA which she declines today. #Thyroid cyst. 3 mm thyroid cyst noted on recent ultrasound. Normal TSH. She is followed by Dr. Javed with endocrinology. No personal or family history of medullary thyroid cancer. She was previously on Mounjaro and did quite well. #Adrenal mass. Followed by endocrinology will be having repeat testing for [place]'s. #History of PE and DVT. Comprehensive workup with specialist in the past developed PE DVT post Moderna vaccine. No longer on blood thinners. #Prediabetes. Average blood sugar on recent labs estimated at 111, fasting blood sugar 100, A1c 5.5. She has previously done quite well on Mounjaro and would benefit from continuing. Weight Consult Plan: Patient has been found to be obese with a BMI of 49.4. Patient has class 3 obesity. Patient was reassured and welcomed to the practice. We discussed that we stress a hollistic medical approach with emphasis on lifestyle modification. Patient was informed that a healthy lifestyle with exercise and good eating habits can help reduce his risk of medical complications. He is explained that obesity increases his risk of diabetes, cardiovascular disease, or organ damage. We spent a lot of time discussing the relationship between food, exercise, sleep, mental health and obesity. Patient was counseled on the importance EATING local, organic food when possible. Patient was educated on clean 15 and dirty dozen. I provided information about reading books called The Food Rules by Andrew Toussaint and Eat Fat Get Lean by Dr Pedro Deluna. Self education is important in the journey for weight management. Patient was offered diagnostic testing. We want to measure visceral adiposity, advanced body composition, adverse lipids, fatty acid balance, risk for heart disease and atherosclerosis, markers of inflammation and genetic susceptibility. Patient was counseled on weight management and was advised to lose weight using B. Lifestyle management which includes several strategies as below 1. Eat a low carbohydrate good fat good protein diet. Eliminate refined carbohydrates from the diet. Continue blood sugar and sugared beverages. Eat local organic when possible. Cook your own meals. Read food labels. None about healthy snacks. Portion control and food with low glycemic index 2. Exercise regularly. Try to get at least 6000 steps a day. Use a predominant to track activity level. Consider using apps like Clearwave, SpecifiedBypal, lose it, stick as needed for self-monitoring and weight management. Consider group exercises. Consider hiring a personal lines advisor. Regular exercise is weaver to sustainable health and prevents as a buffer against weight regain 3. Sleep is most important for healing. Tried to sleep at least 8 hours a night. A good quality sleep needs a sleep ritual with ideal room temperature of around 68. It might help to take a shower and have no electronics in the room and sleep in a very dark room without artificial light. Start her sleep routine and get up early in the morning and go to bed on time 4. Make a social connection. Surround yourself with positive people with positive energy. Connect with friends and family. 5. Get into the habit of meditating and mindfulness while doing everything. 6. Go outside and connect with nature. C. Prescription medications Patient was educated on the use of prescription medications for medical weight loss. This is a growing list and includes phentermine, Topamax,Qsymia, contrave, belviq and saxenda. All prescription medications could have side effects including but not limited to kidney stones, seizure disorder cardiac arrhythmias heart attack pancreatitis etc. etc.. Patient was encouraged to read the prescription insert and have coaching with their pharmacist and make an informed decision about taking medication and know that these medications are being prescribed with good intentions and we do not know how a patient would react to her medication. Sudden medications are FDA approved for weight loss and there is also off label use depending on patient's inability to afford medications in an attempt to lose weight D. Behavioral counseling was done to establish a relationship between food and an mood. Patient was provided information about local counseling and psychiatry and Dr Ruiz at [facility]. We would like to cover regular topics and build on low glycemic eating exercise mindful eating, using yoga and meditation along with deep breathing and connecting with friends and family. E. MASS PAT reviewed, Patient's current medications were reviewed and opinion was given on medication that can cause weight gain and can be substituted F. Patient was assessed for risk with obesity including and not limiting to atherosclerosis heart disease stroke kidney disease, restrictive lung disease, irritable bowel syndrome and overall mortality. Risk of developing prediabetes diabetes and metabolic syndrome was discussed G. Therapeutic plan: We have decided to make therapeutic plan which would include choosing wisely on calories restricting portion getting active, tracking weight, getting good quality sleep and working on time management H. Patient will follow up in (4) weeks for weight management Total time spent today was 45 minutes of which greater than 50% was spent on coordinating and counseling Case discussed with collaborating physician Anuradha Vega who reviewed the assessment and plan. Chart, medications, labs, vital signs reviewed. Dictation was accomplished with the use of Minderest voice recognition software, prone to medical misidentifications and grammatical errors. This is unintentional and the practitioner does try to identify and correct these, but some could still be present. Please do not hesitate to contact practitioner for clarification. All questions answered to patients satisfaction. Patient verbalized understanding of diagnosis and treatments explained. To call sooner prior to next visit it any questions/concerns arise. 01/16/2024 Prediabetes (ICD-10 - R73.03) #Morbid obesity. 305.89 pounds, BMI 49.4. Lengthy discussion with patient in regards to weight loss medications. She has previously been on Mounjaro up to 7.5 mg with great success and loss of 50 pounds. Since being off medication for the last year and a half she has regained the weight. Ultimately she would like to resume Mounjaro. Discussed option of compounded semaglutide and compounded Tirzapeptide here in office. We reviewed cost associated with both compounding programs and escalating cost with escalating dose. She would like to start Vicky peptide today and was given 2.5 mg. We will submit Mounjaro to insurance for coverage. Discussed PA process can take 3 to 4 weeks. Will plan to follow-up in 1 week for nurse visit for next dose of Tirzapeptide 2.5 mg here in clinic. Discussed importance of Seca scale monitoring throughout process at every visit. Reviewed calorie and protein goals to aim to 80 to 100 g of protein daily continue with a goal of 10,000 steps a day. I have encouraged her to increase her water intake. She is also continuing to work on sleep habits and work towards 8 hours of sleep at night. Reviewed risk benefits and adverse effects of medication. She requested ondansetron to have on hand as she did have some nausea with Mounjaro in the past. Reviewed additional supplements including probiotics B complex vitamin and also discussed option of CECELIA which she declines today. #Thyroid cyst. 3 mm thyroid cyst noted on recent ultrasound. Normal TSH. She is followed by Dr. Javed with endocrinology. No personal or family history of medullary thyroid cancer. She was previously on Mounjaro and did quite well. #Adrenal mass. Followed by endocrinology will be having repeat testing for [place]'s. #History of PE and DVT. Comprehensive workup with specialist in the past developed PE DVT post Moderna vaccine. No longer on blood thinners. #Prediabetes. Average blood sugar on recent labs estimated at 111, fasting blood sugar 100, A1c 5.5. She has previously done quite well on Mounjaro and would benefit from continuing. Weight Consult Plan: Patient has been found to be obese with a BMI of 49.4. Patient has class 3 obesity. Patient was reassured and welcomed to the practice. We discussed that we stress a hollistic medical approach with emphasis on lifestyle modification. Patient was informed that a healthy lifestyle with exercise and good eating habits can help reduce his risk of medical complications. He is explained that obesity increases his risk of diabetes, cardiovascular disease, or organ damage. We spent a lot of time discussing the relationship between food, exercise, sleep, mental health and obesity. Patient was counseled on the importance EATING local, organic food when possible. Patient was educated on clean 15 and dirty dozen. I provided information about reading books called The Food Rules by Andrew Toussaint and Eat Fat Get Lean by Dr Pedro Deluna. Self education is important in the journey for weight management. Patient was offered diagnostic testing. We want to measure visceral adiposity, advanced body composition, adverse lipids, fatty acid balance, risk for heart disease and atherosclerosis, markers of inflammation and genetic susceptibility. Patient was counseled on weight management and was advised to lose weight using B. Lifestyle management which includes several strategies as below 1. Eat a low carbohydrate good fat good protein diet. Eliminate refined carbohydrates from the diet. Continue blood sugar and sugared beverages. Eat local organic when possible. Cook your own meals. Read food labels. None about healthy snacks. Portion control and food with low glycemic index 2. Exercise regularly. Try to get at least 6000 steps a day. Use a predominant to track activity level. Consider using apps like Clearwave, SpecifiedBypal, lose it, stick as needed for self-monitoring and weight management. Consider group exercises. Consider hiring a personal lines advisor. Regular exercise is weaver to sustainable health and prevents as a buffer against weight regain 3. Sleep is most important for healing. Tried to sleep at least 8 hours a night. A good quality sleep needs a sleep ritual with ideal room temperature of around 68. It might help to take a shower and have no electronics in the room and sleep in a very dark room without artificial light. Start her sleep routine and get up early in the morning and go to bed on time 4. Make a social connection. Surround yourself with positive people with positive energy. Connect with friends and family. 5. Get into the habit of meditating and mindfulness while doing everything. 6. Go outside and connect with nature. C. Prescription medications Patient was educated on the use of prescription medications for medical weight loss. This is a growing list and includes phentermine, Topamax,Qsymia, contrave, belviq and saxenda. All prescription medications could have side effects including but not limited to kidney stones, seizure disorder cardiac arrhythmias heart attack pancreatitis etc. etc.. Patient was encouraged to read the prescription insert and have coaching with their pharmacist and make an informed decision about taking medication and know that these medications are being prescribed with good intentions and we do not know how a patient would react to her medication. Sudden medications are FDA approved for weight loss and there is also off label use depending on patient's inability to afford medications in an attempt to lose weight D. Behavioral counseling was done to establish a relationship between food and an mood. Patient was provided information about local counseling and psychiatry and Dr Ruiz at [facility]. We would like to cover regular topics and build on low glycemic eating exercise mindful eating, using yoga and meditation along with deep breathing and connecting with friends and family. E. MASS PAT reviewed, Patient's current medications were reviewed and opinion was given on medication that can cause weight gain and can be substituted F. Patient was assessed for risk with obesity including and not limiting to atherosclerosis heart disease stroke kidney disease, restrictive lung disease, irritable bowel syndrome and overall mortality. Risk of developing prediabetes diabetes and metabolic syndrome was discussed G. Therapeutic plan: We have decided to make therapeutic plan which would include choosing wisely on calories restricting portion getting active, tracking weight, getting good quality sleep and working on time management H. Patient will follow up in (4) weeks for weight management Total time spent today was 45 minutes of which greater than 50% was spent on coordinating and counseling Case discussed with collaborating physician Anuradha Vega who reviewed the assessment and plan. Chart, medications, labs, vital signs reviewed. Dictation was accomplished with the use of Minderest voice recognition software, prone to medical misidentifications and grammatical errors. This is unintentional and the practitioner does try to identify and correct these, but some could still be present. Please do not hesitate to contact practitioner for clarification. All questions answered to patients satisfaction. Patient verbalized understanding of diagnosis and treatments explained. To call sooner prior to next visit it any questions/concerns arise. PLAN OF TREATMENT Medication Medication Name Sig Start Date Stop Date Notes Ondansetron HCl 4 MG 1 tablet Orally Onc e a day for 20 days 01/16/2024 Mounjaro 2.5 MG/0.5ML as directed Subcut aneous once weekly for 30 days 01/16/2024 Next Appt Details Follow Up: 4 Weeks, Reason: MEDICATIONS ADMINISTERED Medication Instructions Date of Administration Dosage Notes Tirzepatide 01/16/2024 2.5 mg Progress Notes * Jenelle CONNORSB:1970 (53 yo F)Acc No.[id number]:01/16/2024 Patient:??Corrine CONNORS Provider:??Aimee Heard PA-C :1970?Age:53 Y?Sex:Fe male Date:01/16/2024 Address:[address] [place] [address] Subjective: * Chief Complaints: * ?1. Pt here for weight management consult, SECA done and pt received Tirzepatide 2.5mg on RLQ sub q, pt tolerated well with no reaction.. * HPI: ?Constitutional:? Corrine is a 53-year-old female new patient to our practice here for a weight management consult. She has a past medical history significant for menopause, obesity, pulmonary embolisms, DVTs and left adrenal mass. She is currently followed by Angie Hawley at [facility]. She also had a recent consult with Dr. Javed the flooring sales manager at [facility]. He is repeating workup for [place]'s disease which she has not had done in the past and was negative. She did have a recent thyroid ultrasound with a 3 mm cyst. He did not recommend any follow-up beyond that. No history of pancreatitis or medullary thyroid cancer in her her family. Of note she was previously on Mounjaro and did fantastic with a weight loss of 50 pounds. She has subsequently regained the weight. She went off Mounjaro year and a half ago when her insurance changed and was no longer covered. Comprehensive labs recently done in November through her primary care office were reviewed. Copy scanned to chart. CBC normal, hemoglobin A1c 5.5 blood sugar 100 TSH normal, normal kidney function liver function and electrolytes. Total cholesterol 193, triglycerides 54, HDL 57, LDL 125. ?She did contact her insurance company and reports that Wegovy and Zepbound or not covered however Ozempic and Mounjaro are. Ultimately she would like to be able to resume Mounjaro which she previously did quite well on. ?Seca scale reviewed in detail with patient. Discussed elevated fat mass, and visceral adipose tissue. Discussed importance of monitoring Seca scale at each visit to ensure appropriate weight loss and body composition. ?Highest weight: 305.89 ?Lowest weight: 260 ?Current weight: 305.89 ?Goal weight: <200 ?Trials in the past: weight watchers, agustin sage, keto, exercise programs ?Protein intake: Factor protein meals ?Water intake: 24 ounces ?Exercise: 8-10k/steps a day. 2-3 days of exercise. ?Barriers: ?FH: hyperlipidemia, hypothyroid. no thyroid cancer. ?Sleep: 6.5-7 hrs/night. 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 * ROS:?Constitutional: Patient denies any excessive fatigue with exercise, no weight loss, no fever and no night sweats ???Eyes: No eye discharge, no itching, no redness. ???Ear nose throat: No sore throat, postnasal drip, runny nose, Sneezing ???Cardiovascular: No chest pain, no shortness of breath, no dyspnea on exertion, no PND, no orthopnea, no irregular pulse ???Respiratory: No chronic cough, no hemoptysis, no sputum, no wheezing ???GI, no diarrhea, no constipation no blood in the stools, no pain associated with eating, no indigestion ???Genitourinary: No painful urination no hesitancy no blood in the urine, Musculoskeletal, no limitations to walking and running, no joint deformity, no joint stiffness, no chronic back pain, no noise with joint movement ???Integumentary, no new skin rash. No new changes in skin moles ???Neurological: No history of seizures, memory loss, No language dysfunction, No inability to concentrate, no localized weakness, no sensation loss, no confusion ???Psychiatric: No depression, no suicidal thoughts, no anxiety ???Endocrine: No polyuria no polyphagia or polydipsia. * Medical History:??Weight gai n/loss, Hemorrhoids, Blood clots. * Surgical History:??cholecyst ectomy , cyst removal , oopherectomy . * Hospitalization/Major Diagno stic Procedure:??bilateral submental pulmonary emboliswith right sided heart failure 05/2022. * Family History:??Father: ali ve.??Mother: alive.?? father-obesity, HTN mother-hypothyroid. * Social History:?Tobacco Use:??Tobacco Use/Smoking??Are you a??nonsmoker.?Drugs/Alcohol:??Drugs??Have you used drugs other than those for medical reasons in the past 12 months???No.??Alcohol Screen (Audit-C)??Did you have a drink containing alcohol in the past year???Yes,??How often did you have a drink containing alcohol in the past year???2 to 3 times a week (3 points),??Points??3,??Interpretation??Positive.?? * Medications:??Taking Multivi tamin - Tablet 1 tablet Orally Once a day , Discontinued Xarelto 20 MG Tablet Oral , Medication List reviewed and reconciled with the patient * Allergies:??Levaquin: anaphy laxis. Objective: * Vitals:??HR:93/min, BP:118/7 8mm Hg, Wt:306lbs, BMI:68.6Index, Ht: 56 in, Oxygen sat %:99%. * Physical Examination:?General: Well appearing, obese, age appropriate in no acute distress. Speaking in full, clear sentences. ?SKIN: Warm, dry intact. No rashes/lesions. ?HEENT: Normocephalic atraumatic. EOM intact. No nystagmus noted. PERRLA. ?LUNGS: Clear to auscultation bilaterally, no wheezes, rales or rhonchi ?CARDIAC: Regular rate and rhythm, no murmurs, rubs or gallops. ?Extremities: Warm and well perfused. No edema noted. ?Neuro: CN II-XI grossly intact. Speaking in full sentences. Hearing intact. Assessment: * Assessment: 1.??Morbid (severe) obesity due to excess calories - E66.01 (Primary)??2.??Body mass index [BMI] 45.0-49.9, adult - Z68.42??3.??Thyroid cyst - E04.1??4.??Adrenal mass - E27.8??5.??History of pulmonary embolus (PE) - Z86.711??6.??Prediabetes - R73.03?? #Morbid obesity. 305.89 poun ds, BMI 49.4. Lengthy discussion with patient in regards to weight loss medications. She has previously been on Mounjaro up to 7.5 mg with great success and loss of 50 pounds. Since being off medication for the last year and a half she has regained the weight. Ultimately she would like to resume Mounjaro. Discussed option of compounded semaglutide and compounded Tirzapeptide here in office. We reviewed cost associated with both compounding programs and escalating cost with escalating dose. She would like to start Vicky peptide today and was given 2.5 mg. We will submit Mounjaro to insurance for coverage. Discussed PA process can take 3 to 4 weeks. Will plan to follow-up in 1 week for nurse visit for next dose of Tirzapeptide 2.5 mg here in clinic. Discussed importance of Seca scale monitoring throughout process at every visit. Reviewed calorie and protein goals to aim to 80 to 100 g of protein daily continue with a goal of 10,000 steps a day. I have encouraged her to increase her water intake. She is also continuing to work on sleep habits and work towards 8 hours of sleep at night. Reviewed risk benefits and adverse effects of medication. She requested ondansetron to have on hand as she did have some nausea with Mounjaro in the past. Reviewed additional supplements including probiotics B complex vitamin and also discussed option of CECELIA which she declines today. #Thyroid cyst. 3 mm thyroid cyst noted on recent ultrasound. Normal TSH. She is followed by Dr. Javed with endocrinology. No personal or family history of medullary thyroid cancer. She was previously on Mounjaro and did quite well. #Adrenal mass. Followed by endocrinology will be having repeat testing for [place]'s. #History of PE and DVT. Comprehensive workup with specialist in the past developed PE DVT post Moderna vaccine. No longer on blood thinners. #Prediabetes. Average blood sugar on recent labs estimated at 111, fasting blood sugar 100, A1c 5.5. She has previously done quite well on Mounjaro and would benefit from continuing. Weight Consult Plan: Patient has been found to be obese with a BMI of 49.4. Patient has class 3 obesity. Patient was reassured and welcomed to the practice. We discussed that we stress a hollistic medical approach with emphasis on lifestyle modification. Patient was informed that a healthy lifestyle with exercise and good eating habits can help reduce his risk of medical complications. He is explained that obesity increases his risk of diabetes, cardiovascular disease, or organ damage. We spent a lot of time discussing the relationship between food, exercise, sleep, mental health and obesity. Patient was counseled on the importance EATING local, organic food when possible. Patient was educated on clean 15 and dirty dozen. I provided information about reading books called The Food Rules by Andrew Toussiant and Eat Fat Get Lean by Dr Pedro Deluna. Self education is important in the journey for weight management. Patient was offered diagnostic testing. We want to measure visceral adiposity, advanced body composition, adverse lipids, fatty acid balance, risk for heart disease and atherosclerosis, markers of inflammation and genetic susceptibility. Patient was counseled on weight management and was advised to lose weight using B. Lifestyle management which includes several strategies as below 1. Eat a low carbohydrate good fat good protein diet. Eliminate refined carbohydrates from the diet. Continue blood sugar and sugared beverages. Eat local organic when possible. Cook your own meals. Read food labels. None about healthy snacks. Portion control and food with low glycemic index 2. Exercise regularly. Try to get at least 6000 steps a day. Use a predominant to track activity level. Consider using apps like Clearwave, myfitnesspal, lose it, stick as needed for self-monitoring and weight management. Consider group exercises. Consider hiring a personal lines advisor. Regular exercise is weaver to sustainable health and prevents as a buffer against weight regain 3. Sleep is most important for healing. Tried to sleep at least 8 hours a night. A good quality sleep needs a sleep ritual with ideal room temperature of around 68. It might help to take a shower and have no electronics in the room and sleep in a very dark room without artificial light. Start her sleep routine and get up early in the morning and go to bed on time 4. Make a social connection. Surround yourself with positive people with positive energy. Connect with friends and family. 5. Get into the habit of meditating and mindfulness while doing everything. 6. Go outside and connect with nature. C. Prescription medications Patient was educated on the use of prescription medications for medical weight loss. This is a growing list and includes phentermine, Topamax,Qsymia, contrave, belviq and saxenda. All prescription medications could have side effects including but not limited to kidney stones, seizure disorder cardiac arrhythmias heart attack pancreatitis etc. etc.. Patient was encouraged to read the prescription insert and have coaching with their pharmacist and make an informed decision about taking medication and know that these medications are being prescribed with good intentions and we do not know how a patient would react to her medication. Sudden medications are FDA approved for weight loss and there is also off label use depending on patient's inability to afford medications in an attempt to lose weight D. Behavioral counseling was done to establish a relationship between food and an mood. Patient was provided information about local counseling and psychiatry and Dr Ruiz at [facility]. We would like to cover regular topics and build on low glycemic eating exercise mindful eating, using yoga and meditation along with deep breathing and connecting with friends and family. E. MASS PAT reviewed, Patient's current medications were reviewed and opinion was given on medication that can cause weight gain and can be substituted F. Patient was assessed for risk with obesity including and not limiting to atherosclerosis heart disease stroke kidney disease, restrictive lung disease, irritable bowel syndrome and overall mortality. Risk of developing prediabetes diabetes and metabolic syndrome was discussed G. Therapeutic plan: We have decided to make therapeutic plan which would include choosing wisely on calories restricting portion getting active, tracking weight, getting good quality sleep and working on time management H. Patient will follow up in (4) weeks for weight management Total time spent today was 45 minutes of which greater than 50% was spent on coordinating and counseling Case discussed with collaborating physician Anuradha Vega who reviewed the assessment and plan. Chart, medications, labs, vital signs reviewed. Dictation was accomplished with the use of Minderest voice recognition software, prone to medical misidentifications and grammatical errors. This is unintentional and the practitioner does try to identify and correct these, but some could still be present. Please do not hesitate to contact practitioner for clarification. All questions answered to patients satisfaction. Patient verbalized understanding of diagnosis and treatments explained. To call sooner prior to next visit it any questions/concerns arise. Plan: * Treatment: * Therapeutic Injections:? Tirzepatide : 2.5 mg (Route: Subcutaneous) given by Alexandra Swartz on subcutaneus * Procedure Codes:??G0447 FCE- FCE BEHAVRL CNSL OBESITY 15 MIN, Modifiers: 59 * Follow Up:??4 Weeks * Images: Billing Information: * Visit Code:?? 98410 Office Visit, New Pt., Level 4. Modifiers: 25 * Procedure Codes:?? G0447 FCE-FCE BEHAVRL CNSL OBESITY 15 MIN. Modifiers: 59 * Sign off status: Completed true * Provider:??Aimee Heard PA-C Date:??05/2024 History and Physical Notes * HPI (History of Present Illness) Category Sub-Category Detail Notes Category Not es Constitutional Corrine is a 53-year-old female new patient to our practice here for a weight management consult. She has a past medical history significant for menopause, obesity, pulmonary embolisms, DVTs and left adrenal mass. She is currently followed by Angie Hawley at [facility]. She also had a recent consult with Dr. Javed the flooring sales manager at [facility]. He is repeating workup for Sebas's disease which she has not had done in the past and was negative. She did have a recent thyroid ultrasound with a 3 mm cyst. He did not recommend any follow-up beyond that. No history of pancreatitis or medullary thyroid cancer in her her family. Of note she was previously on Mounjaro and did fantastic with a weight loss of 50 pounds. She has subsequently regained the weight. She went off Mounjaro year and a half ago when her insurance changed and was no longer covered. Comprehensive labs recently done in November through her primary care office were reviewed. Copy scanned to chart. CBC normal, hemoglobin A1c 5.5 blood sugar 100 TSH normal, normal kidney function liver function and electrolytes. Total cholesterol 193, triglycerides 54, HDL 57, LDL 125. She did contact her insurance company and reports that Wegovy and Zepbound or not covered however Ozempic and Mounjaro are. Ultimately she would like to be able to resume Mounjaro which she previously did quite well on. Seca scale reviewed in detail with patient. Discussed elevated fat mass, and visceral adipose tissue. Discussed importance of monitoring Seca scale at each visit to ensure appropriate weight loss and body composition. Highest weight: 305.89 Lowest weight: 260 Current weight: 305.89 Goal weight: <200 Trials in the past: weight watchers, agustin sage, anna, exercise programs Protein intake: Factor protein meals Water intake: 24 ounces Exercise: 8-10k/steps a day. 2-3 days of exercise. Barriers: FH: hyperlipidemia, hypothyroid. no thyroid cancer. Sleep: 6.5-7 hrs/night. 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 Physical Examination Category Sub-Category Detail Notes Section Note s General: Well appearing, obese, age appropriate in no acute distress. Speaking in full, clear sentences. SKIN: Warm, dry intact. No rashes/lesions. HEENT: Normocephalic atraumatic. EOM intact. No nystagmus noted. PERRLA. LUNGS: Clear to auscultation bilaterally, no wheezes, rales or rhonchi CARDIAC: Regular rate and rhythm, no murmurs, rubs or gallops. Extremities: Warm and well perfused. No edema noted. Neuro: CN II-XI grossly intact. Speaking in full sentences. Hearing intact.
--- OUTSIDE RECORDS SUMMARY | 2025-02-04 15:08 | XMS_ITS | Clinical Summary ---
Author Organization [facility] Address [address] [place] [address] Care Team Providers Care Tool Dispatcher Name Role Phone Amee De La Cruz [facility] Primary Care Provider Source Comments PLEASE NOTE, if this patient is a minor, it may be UNLAWFUL to discuss sensitive information that is contained in these records (such as FAMILY PLANNING, MENTAL HEALTH or SUBSTANCE ABUSE) with the minor patient's parent or other person without the patient's specific authorization.[facility] Allergies Active Allergy Reactions Criticality Noted Date Comments Levofloxacin Anaphylaxis 03/30/2019 Reaction: Anaphylaxis Nickel 06/24/2019 Medications rivaroxaban (XARELTO) 20 mg tabIndications:D VT, lower extremity, distal, acute, right (HCC-CMS),Bilate ral pulmonary embolism ([facility]) Take 1 Tablet by mouth once daily 90 Tablet 1 12/18/2022 Active traZODone (DESYREL) 50 mg tabletIndication s:Sleep disturbance Take 0.5-1 Tablets by mouth nightly at bedtime as needed for sleep 30 Tablet 01/15/2023 Active Active Problems Problem Noted Date Diagnosed Date Systemic lupus erythematosus , unspecified SLE type, unspecified organ involvement status ([facility]) 09/10/2022 Bilateral pulmonary embolism (HCC-CMS) 2 Overview (09/10/2022): Dx April 2022, had a prior dvt nov 2021 Will likely need lifelong anticoagulation xarelto 20mg daily DVT, lower extremity, distal, acute, right (HCC- CMS) 12/01/2021 Immunizations Immunization Administration Dates Next Due PNEUMOCOCCAL CONJUGATE PCV 13 03/30/2019 PNEUMOCOCCAL POLYSACCHARIDE PPV23 05/27/2019 Family History Medical History Relation Name Comments Hypertension Father Colon Cancer Maternal Grandfather Heart attack Maternal Grandfather Myocard ial infarction Stroke Maternal Grandfather Osteoporosis Maternal Grandmother Thyroid Disease Maternal Grandmother Thyroid Disease Mother Relation Name Status Comments Father Alive Maternal Grandfather Maternal Grandmother Mother Alive Social History Tobacco Use Types Packs/Day Years Used Date Smoking Tobacco: Never Smokeless Tobacco: Never Tobacco Cessation:Counseling Given: No Alcohol Use Standard Drinks/Week Comments Yes 1 (1 standard drink = 0.6 oz pur e alcohol) Occacionally; 1x/wk Social Connections Answer Date Recorded Connectedness 0 08/02/2024 Financial Resource Strain Answer Date R ecorded Financial Resource Strain 0 2020 Stress Answer Date Recorded Stress 0 01/03/2021 Physical Activity Answer Date Recorded Physical Activity 0 01/03/2021 Food Insecurity Answer Date Recorded Food 0 08/06/2024 Transportation Needs Answer Date Record ed Transportation 0 01/03/2021 Housing Stability Answer Date Recorded Housing 0 01/03/2021 Safety and Environment Answer Date Paco rded Safety 0 01/03/2021 Utilities Answer Date Recorded Utilities 0 01/03/2021 Employment Answer Date Recorded Stress 0 08/02/2024 Comments No Sex and Gender Information Value Date Recorded Sex Assigned at Female 09/10/2022 3:48 PM PDT Legal Sex Female 9:40 PM PST Gender Identity Female 01/13/2021 12:56 AM PST Sexual Orientation Bisexual 01/13/2021 12 :56 AM PST Last Filed Vital Signs Vital Sign Reading Time Taken Comments Blood Pressure 138/75 05/24/2022 4:53 PM EDT Pulse 86 05/24/2022 4:53 PM EDT Temperature 36.4 ??C (97.6 ??F) 06/24/2019 9:18 AM ED T Respiratory Rate 18 05/24/2022 4:53 PM EDT Oxygen Saturation 98% 05/24/2022 4:53 PM EDT Inhaled Oxygen Concentration - - Weight 138.2 kg (304 lb 9.6 oz) 05/24/2022 4:53 PM EDT Height 167.6 cm (5' 6 ) 05/24/2022 4:53 PM EDT Body Mass Index 49.16 05/24/2022 4:53 PM EDT Plan of Treatment Health Maintenance Due Date Last Done Comments HPV Screening 1971 Hepatitis C Screening 1971 Lipid Screening 1971 Pap + HPV 1971 Tobacco Screening 1971 Annual Preventive Care Visit 1989 Imm-Hepatitis B (1 of 3 - 19 + 3-dose series) 1990 Cervical Cancer Screening 1992 Pap Smear 1992 Breast Cancer Screening (Mammogram) 2011 CT Colonography 2016 FIT/gFOBT 2016 Fecal DNA 2016 Flexible Sigmoidoscopy 2016 Imm-Zoster, Recombinant (1 of 2) 2021 Diabetes Screening 03/30/2022 03/30/2019, 03/30/2019 Hypertension Screening (#1) 05/24/2023 Hcm-JLLEX-47 ( season) 2024 11/01/2021, 11/28/2020, 11/07/2020 Imm-Influenza (#1) 2024 08/25/2022, 1 , 08/19/2020, Additional history exists Alcohol and Drug Screen 11/11/2024 09/10/2022 Depression Annual Screen 11/11/2024 12/01/2021 Colonoscopy 07/24/2029 07/24/2019 Colorectal Cancer Screening 07/24/2029 Imm-DTaP/Tdap/Td (3 - Td or Tdap) 05/25/2032 022, 07/20/2011 HIV Screening Completed 03/30/2019 Cervical Ablation/Cold-Knife Conization Discontinued Cervical Cryotherapy Discontinued Colposcopy Discontinued Endometrial Biopsy Discontinued Excision/Leep Discontinued HPV Genotyping Discontinued Vaginal Pap Discontinued Vulvoscopy Discontinued Procedures Procedure Name Priority Date/Time Associated Diagnosis Comments COLONOSCOPY Routine 07/24/2019 HIV 1/2 AG & AB W/RFLX (4TH GEN) Routine 03/30/2019 2:36 PM EDT COMPREHENSIVE METABOLIC PANEL Routine 03/30/2019 2:36 PM EDT from Last 3 Months or Most Recently Relevant to Health Maintenance Results * COLONOSCOPY (07/24/2019) 07/24/2019 Impressions Leyla Major - 07/24/2019 10:20 AM EDT Colonoscopy Results: Impression: Hemorrhoids, otherwise negative colonoscopy to the cecum and terminal ileum. Rudy Sinha PROCEDURES Final Result * HIV 1/2 AG & AB W/RFLX (4TH GEN) (03/30/2019 2:36 PM EDT) HIV AG/AB, 4TH GEN NON-REACT CAL NON-REACT CAL 04/01/2019 3:42 PM EDT DATA CONVERSION Comment: HIV-1 antigen and HIV-1/HIV-2 antibodies were not detected. There is no laboratory evidence of HIV infection. PLEASE NOTE: This information has been disclosed to you from records whose confidentiality may be protected by state law. ??If your state requires such protection, then the state law prohibits you from making any further disclosure of the information without the specific written consent of the person to whom it pertains, or as otherwise permitted by law. A general authorization for the release of medical or other information is NOT sufficient for this purpose. ?? For additional information please refer to http://education.Cutefund.[employer]/faq/SLB798 (This link is being provided for informational/ educational purposes only.) The performance of this assay has not been clinically validated in patients less than 2 years old. 03/30/2019 2:36 PM EDT [facility] Provider Default LAB - BLOOD DRAW Final Res ult DATA CONVERSION * COMPREHENSIVE METABOLIC PANEL (03/30/2019 2:36 PM EDT) EGFR 122 > OR = 60 mL/min/1. 73m2 04/01/2019 3:42 PM EDT DATA CONVERSION BILIRUBIN, TOTAL 0.5 0.2 - 1.2 mg/dL 04/01/2019 3:42 PM EDT DATA CONVERSION GFR ESTIMATED 105 > OR = 60 mL/min/1. 73m2 04/01/2019 3:42 PM EDT DATA CONVERSION ALBUMIN/GLOBULI N RATIO 1.4 1.0 - 2.5 (calc) 04/01/2019 3:42 PM EDT DATA CONVERSION CARBON DIOXIDE 24 20 - 32 mmol/L 04/01/2019 3:42 PM EDT DATA CONVERSION CREATININE (blood) 0.66 0.50 - 1.10 mg/dL 04/01/2019 3:42 PM EDT DATA CONVERSION ALKALINE PHOSPHATASE 65 33 - 115 U/L 04/01/2019 3:42 PM EDT DATA CONVERSION ALBUMIN 3.9 3.6 - 5.1 g/dL 04/01/2019 3:42 PM EDT DATA CONVERSION BUN/CREATININE RATIO NOT APPLICABLE (calc) 04/01/2019 3:42 PM EDT DATA CONVERSION CHLORIDE 110 98 - 110 mmol/L 04/01/2019 3:42 PM EDT DATA CONVERSION GLOBULIN 2.7 1.9 - 3.7 g/dL (calc) 04/01/2019 3:42 PM EDT DATA CONVERSION PROTEIN, TOTAL 6.6 6.1 - 8.1 g/dL 04/01/2019 3:42 PM EDT DATA CONVERSION CALCIUM 9.1 8.6 - 10.2 mg/dL 04/01/2019 3:42 PM EDT DATA CONVERSION GLUCOSE 98 65 - 99 mg/dL 04/01/2019 3:42 PM EDT DATA CONVERSION Comment: ? Fasting reference interval SODIUM 142 135 - 146 mmol/L 04/01/2019 3:42 PM EDT DATA CONVERSION UREA NITROGEN (BUN) 11 7 - 25 mg/dL 04/01/2019 3:42 PM EDT DATA CONVERSION ALT 13 6 - 29 U/L 04/01/2019 3:42 PM EDT DATA CONVERSION POTASSIUM 4.1 3.5 - 5.3 mmol/L 04/01/2019 3:42 PM EDT DATA CONVERSION AST 12 10 - 35 U/L 04/01/2019 3:42 PM EDT DATA CONVERSION 03/30/2019 2:36 PM EDT [facility] Provider Default LAB - BLOOD DRAW Final Res ult DATA CONVERSION from Last 3 Months or Most Recently Relevant to Health Maintenance Insurance [employer] Care Teams Tool Dispatcher Relationship Specialty Start Date End Date Amee De La Cruz FNP [address] [place] [id number] PCP - General 11/13/23
--- OUTSIDE RECORDS SUMMARY | 2025-02-04 15:08 | XMS_ITS ---
Author Organization [facility] Address [address] [place] [address] Care Team Providers Care Herb Doctor Name Role Phone Aimee Heard Unavailable [phone] KOFFI VEGA Unavailable [phone] REASON FOR VISIT 2.5 MG Encounters Encounter Location Date Provider Diagnosis [facility] [address] [facility] [address] [place] [address] 01/23/2024 KOFFI VEGA PLAN OF TREATMENT No Information Progress Notes * Aurelia CONNORSGigiB:1970 (54 yo F)Acc No.[id number]:01/23/2024 Progress Note Patient:??Corrine CONNORS Provider:??Koffi Vega MD :1970?Age:53 Y?Sex:Fe male Date:01/23/2024 Address:[address] [place], [place] [id number] Subjective: * Chief Complaints: * ?1. 2.5 MG. * Medical History:?? Objective: Assessment: Plan: * Treatment: * Procedure Codes:??85674 NO S HOW OFFICE VISIT Care Plan: * Problems:?? * Images: Billing Information: * Visit Code:?? * Procedure Codes:?? 12700 NO SHOW OFFICE VISIT. Care Plan Details* * Sign off status: Pending * Provider:??Koffi Vega MD Date:??01/22
--- OUTSIDE RECORDS SUMMARY | 2025-02-04 15:08 | XMS_ITS ---
Author Organization [facility] Address [address] [place] [address] Care Team Providers Care Radiology Clerk Name Role Phone Aimee Heard Unavailable [phone] REASON FOR VISIT with [facility] Encounters Encounter Location Date Provider Diagnosis [address] [place] [phone] 02/20/2024 Aimee Heard PLAN OF TREATMENT No Information Progress Notes * Jenelle MICHAELSB:1970 (54 yo F)Acc No.[id number]:02/20/2024 Patient:??NEDRAFUNMILAYOCorrine Provider:??Aimee Heard PA-C :1970?Age:53 Y?Sex:Fe male Date:02/20/2024 Address:[address] [place], [place] [id number] Subjective: * Chief Complaints: * ?1. with [facility]. * Medical History:?? Objective: Assessment: Plan: * Treatment: * Images: Billing Information: * Visit Code:?? * Procedure Codes:?? * Sign off status: Pending * Provider:??Aimee Heard PA-C Date:??02/09
--- OUTSIDE RECORDS SUMMARY | 2025-02-04 15:08 | XMS_ITS | Patient Health Record ---
Author Organization [facility] Address [address] [place] [address] Care Team Providers Care Pay Station Collector Name Role Phone Aimee Heard Unavailable [phone] ALLERGIES Allergen (clinical drug ingredient) Drug/Non Drug Allergy documented on EMR Reaction Allergy Type Onset Date Status Levaquin anaphylaxis Drug Allergy Activ e REASON FOR REFERRAL No Information MEDICATIONS Medication SIG (Take, Route, Fr equency, [...] due to excess calories (E66.01) Active confirmed 348784400 Problem Body mass index [BMI] 45.0-49.9, adult (Z68.42) Active confirmed 021247913 Problem Adrenal mass (E27.8) Active confirmed 521500834 Problem Thyroid cyst (E04.1) Active confirmed 56937100 Encounters Encounter Location Date Provider Diagnosis [facility] [address] [address] 02/20/2024 Aimee Svrcek PLAN OF TREATMENT No Information Insurance Providers Payer Name Payer Address Payer Phone Subscriber Number Group Number Insured Name Patient Relationship to Insured Coverage Start Date Coverage End Date Blue Benefits Admin [address] [address] [place] [address] [id number] Corrine Michaels Self - patient is the insured 3 MEDICATIONS ADMINISTERED Medication Instructions Date of Administration Dosage Notes Tirzepatide 01/16/2024 2.5 mg MEDICAL (GENERAL) HISTORY Medical History History ICD Code weight gain/loss hemorrhoids blood clots Surgical History Surgery Date(Month/Year) cholecystectomy cyst removal oopherectomy Hospitalization History Reason Date(Month/Year) bilateral submental pulmonary emboliswit h right sided heart failure 05/2022
--- OUTSIDE RECORDS SUMMARY | 2025-02-04 15:08 | XMS_ITS | Clinical Summary ---
Author Organization [facility] Address [address] [place] [address] [place] [address] Care Team Providers Care Plumbing Instructor Name Role Phone Poc, Non Atrius Pcp Or Primary Care Provider Ele vailable Poc, Not Required Pcp Or Unavailable Unavail able Allergies Active Allergy Reactions Criticality Noted Date Comments Iv Dye, Iodine Containing Contrast Media 02/22/2016 Levofloxacin 02/22/2016 Medications albuterol (VENTOLIN,PROVENT IL) 2.5 mg /3 mL (0.083 %) Solution for Nebulization Use in nebulizer Active Active Problems Problem Noted Date Diagnosed Date Thyroid nodule 06/17/2015 Obesities, morbid 06/17/2015 Immunizations Name Administration Dates Next Due Hep A Vaccine (Unspecified Formulation) 10/25/20 11 TdaP 07/20/2011 Surgical History Surgery Date Site/Laterality Comments CHOLECYSTECTOMY 05/2007 Medical History Medical History Date Comments Asthma Chicken pox Lupus Gall bladder disease Thyroid nodule Family History Medical History Relation Comments AutoImmune disease Maternal Grandfather CAD/PVD Maternal Grandfather Cancer - colon Maternal Grandfather Stroke Maternal Grandfather Osteoporosis Maternal Grandmother Thyroid disorder Maternal Grandmother breast cancer [Other] Paternal Aunt Relation Status Comments Maternal Grandfather Maternal Grandmother Paternal Aunt Social History Tobacco Use Types Packs/Day Years Used Date Smoking Tobacco: Never Alcohol Use Standard Drinks/Week Comments Yes 1.7 (1 standard drink = 0.6 oz p ure alcohol) Comments No Sex and Gender Information Value Date Recorded Sex Assigned at Not on file Legal Sex Female 4:30 PM EDT Gender Identity Not on file Sexual Orientation Not on file Obstetrics History Para Term AB IAB SAB Ectopic Multiple Livin g Live Births 0 0 0 0 0 0 0 0 0 0 Last Filed Vital Signs Vital Sign Reading Time Taken Comments Blood Pressure 132/84 02/22/2016 2:15 PM EDT Pulse 82 02/22/2016 2:15 PM EDT Temperature - - Respiratory Rate 16 07/21/2015 3:09 PM EDT Oxygen Saturation 99% 02/22/2016 2:15 PM EDT Inhaled Oxygen Concentration - - Weight 123 kg (271 lb 3.2 oz) 07/21/2015 3:09 PM EDT Height 168.9 cm (5' 6.5 ) 07/21/2015 3:09 PM EDT Body Mass Index 43.12 07/21/2015 3:09 PM EDT Plan of Treatment Health Maintenance Due Date Last Done Comments OFFICE VISIT 1970 HEP B INITIAL SCREENING 1989 HIV SCREENING 1989 HEPATITIS B VACCINE (1 of 3 - 19+ 3-dose series) 1990 LIPID SCREENING 1991 * GLUCOSE OR A1C SCREENING - Q3YR 2006 HEP C SCREENING 2007 MAMMOGRAPHY: 1 YR 2011 HEPATITIS A VACCINE (2 of 2 - Risk 2-dose series) 04/25/2012 10/25/2011 PAP: UPDATE W EDIT MODIFIERS 06/18/2015 06/17/2015 COLORECTAL SCREENING: UPDATE W EDIT MODIFIERS 2016 DTAP/TDAP/TD VACCINE (2 - Td or Tdap) 07/20/2021 07/20/2011 PERIODIC HEALTH REVIEW 2021 PNEUMOCOCCAL VACCINE(S) 50+ (1 of 1 - PCV) 2021 ZOSTER VACCINE (1 of 2) 2021 COVID-19 Vaccine (1 - 2023-2 5 season) 2024 FLU SEASONAL (#1) 07/12/2024 HAEMOPHILUS INFLUENZA VACCINE Aged Out No longer eligible based on patient's age to complete this topic POLIO VACCINE Aged Out No longer elig ible based on patient's age to complete this topic RSV Vaccine //toddler Aged Out No longer eligible based on patient's age to complete this topic Procedures Procedure Name Priority Date/Time Associated Diagnosis Comments PAP TEST THINPREP VIAL (ELECTRONEURODIAGNOSTIC TECHNICIAN) Routine 06/17/2015 7:35 PM EDT Screening for cervical cancer from Last 3 Months or Most Recently Relevant to Health Maintenance Results * PAP TEST (06/17/2015 7:35 PM EDT) PAP [facility] DEPARTMENT OF PATHOLOGY AND LAB MEDICINE FINAL DX GENERAL CATEGORY: NEGATIVE FOR INTRAEPITHELIAL LESION OR MALIGNANCY. . SPECIMEN ADEQUACY: Satisfactory for evaluation. Transformation zone component present. . APPSB/APPSB [facility] DEPARTMENT OF PATHOLOGY AND LAB MEDICINE CASE # [id number] [facility] DEPARTMENT OF PATHOLOGY AND LAB MEDICINE PROCEDURE DATE 06/17/2015 [facility] DEPARTMENT OF PATHOLOGY AND LAB MEDICINE ORDERING CLINICIAN ANNE-MARIE DUNN M.D. [facility] DEPARTMENT OF PATHOLOGY AND LAB MEDICINE PATHOLOGIST BASIA DELGADO, Senior Financial Reporting Analyst [facility] DEPARTMENT OF PATHOLOGY AND LAB MEDICINE 06/17/2015 7:35 PM EDT 06/20/2015 9:18 AM EDT Anne-Marie Dunn GENERAL LAB Final Result [facility] [address] [place] [address] [facility] DEPARTMENT OF PATHOLOGY AND LAB MEDICINE [address] [place] [address] from Last 3 Months or Most Recently Relevant to Health Maintenance Care Teams Plumbing Instructor Relationship Specialty Start Date End Date Poc, Non Atrius Pcp Or PCP - General 05/11/15 Poc, Not Required Pcp Or PCP - Payer 05/11/15
== END 2025-02-04 11:35 | disposition home or self-care (01) ==
LOC: HO.US 11:34
PROVIDERS: Visit Provider Internal Medicine Medical Oncology
DX: E04.1 Nontoxic single thyroid nodule (principal)
CPT/HCPCS: 76536

== ENCOUNTER → 2025-02-04 11:36 | Outpatient (BNV) | payer OTHER, SELFPAY | PROVIDERS: Visit Provider Radiology Diagnostic Radiology | DX: E04.1 Nontoxic single thyroid nodule (principal) | CPT/HCPCS: 76536 ==

== ENCOUNTER 2025-02-09 09:10 | Outpatient (AMB) | payer OTHER, SELFPAY ==
--- NOTE | 2025-02-09 09:18 | A.OFFVIS_ITS ---
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 Pt is taking eliquis daily. Pt states she feels cramping and burning when ambulating. Allergies amoxicillin [From Augmentin] Allergy (Severe, Verified 02/10/25 10:41) Vomiting clavulanic acid [From Augmentin] Allergy (Severe, Verified 02/10/25 10:41) Vomiting nickel Allergy (Verified 02/10/25 10:41) Hives levofloxacin [From Levaquin] Adverse Reaction (Verified 02/10/25 10:41) Anaphylaxis HPI HPI 2w ED follow up for DVT/PE: Details: The patient is a 54-year-old female presenting with persistent leg soreness and burning sensation. She describes a burning sensation in her leg, predominantly when in a dependent position, and has a history of deep vein thrombosis and a pulmonary embolism, for which she is on anticoagulation. She alludes to prior musculoskeletal concerns but no acute back or knee issues at the visit. Notably, she employs a DVT pillow to alleviate symptoms of swelling and enhance comfort. The sensation and swelling have persisted, influencing her functionality and prompting the consultation. [facility] Medical History Asthma Lupus Social History Alcohol intake: current Alcohol intake frequency: a few times a month service: No Current occupational status: employed Review of Systems Const All systems reviewed & are unremarkable except as noted in HPI and below Reports no additional complaints ENT Reports Normal hearing present Card Denies chest pain, Denies chest pain at rest, Denies chest pain with activity and Denies pedal edema Resp Denies cough GI Denies abdominal pain Musc Denies abnormal gait, Denies muscle cramps and Denies radiating pain into limb Skin/Breast Denies skin ulcer and Denies wounds Neuro Reports Normal hearing present and Denies abnormal gait Psych Reports no additional complaints Physical Exam Vital Signs: BMI result Body Mass Index 46.2 Const General: cooperative, healthy appearing and comfortable Orientation/consciousness: oriented to person, oriented to place and oriented to time HEENT Head: Yes normal to inspection Neck Neck: Yes normal visual inspection Carotids: no bruits Chest Chest palpation & inspection: normal inspection of the chest Resp Effort & Inspection: normal respiratory effort and able to speak in complete sentences Auscultation: clear to auscultation bilaterally, no crackles, no rales, no rhonchi and no wheezes Cardio Rate: regular rate Rhythm: regular rhythm Heart sounds: S1 normal heart sound present and S2 normal heart sound present Bruits: no carotid bruits Peripheral pulses: Peripheral pulses 2+ throughout GI Inspection: Yes normal to inspection Skin Wounds: no wounds Hair: normal Neuro General: oriented to person, oriented to place and oriented to time Cranial nerves: Yes CN's II-XII intact bilaterally and Yes Normal hearing present Cognition (Neuro): normal cognition Motor exam (neuro): 5/5 motor strength present throughout Extrem Other: venous exam: No significant superficial varicosities or spider telangiectasias, minimal edema General: No clubbing, No cyanosis and No edema Psych Appearance: grossly normal Mental Status: mental status grossly normal Speech and movement: Normal speech and movement present Assessment & Plan Assessment & Plan (1) Varicose veins of right lower extremity with inflammation: Comment: 11/20/2024 - right great saphenous vein Cyanoacralate ablation Code(s): I83.11 - Varicose veins of right lower extremity with inflammation Category: Medical Plan: The management of the patient's leg soreness and burning sensation includes continuation of compression and mechanical elevation strategies to address symptoms attributed to venous insufficiency, particularly using a DVT pillow. At the current time would continue with conservative measures including compression, elevation and exercise. Pain associated with potential musculoskeletal issues will be monitored, with further assessment by pain management if necessary. The lung nodule will be further evaluated through consultation with pulmonology and a PET scan. At the current time I do believe that most of her issues appear to be more musculoskeletal in nature. Would continue medical management for her other issues. We will treat her as conservatively as possible. She will follow up with us on an as-needed basis. Thank you for allowing us to assist in her care Patient was informed and verbally consented to the use of an ambient scribe for clinic note documentation during this visit. (2) Pulmonary embolism: Code(s): I26.99 - Other pulmonary embolism without acute cor pulmonale Category: Medical Qualifiers: Pulmonary embolism type: unspecified Chronicity: unspecified Acute cor pulmonale presence: unspecified Qualified Code(s): I26.99 - Other pulmonary embolism without acute cor pulmonale Plan: Continue anticoagulation Coding Level of Care Code Est Pt Level 4 (83351) Diagnoses Varicose veins of right lower extremity with inflammation I83.11 Pulmonary embolism, unspecified chronicity, unspecified pulmonary embolism type, unspecified whether acute cor pulmonale present I26.99 Pulmonary embolism type: unspecified Chronicity: unspecified Acute cor pulmonale presence: unspecified
[2025-02-09 09:21] VITALS: BMI 46.2
--- OUTSIDE RECORDS SUMMARY | 2025-02-09 10:07 | XMS_ITS | Clinical Summary ---
Author Organization [facility] Address [address] [place] [address] [place] [address] Care Team Providers Care Production Posting Clerk Name Role Phone Poc, Non Atrius Pcp [...] age to complete this topic RSV Vaccine Infant//toddler Aged Out No longer eligible based on patient's age to complete this topic Procedures Procedure Name Priority Date/Time Associated Diagnosis Comments PAP TEST THINPREP VIAL (WELDING SPECIALIST) Routine 06/17/2015 7:35 PM EDT Screening for cervical cancer from Last 3 Months or Most Recently Relevant to Health Maintenance Results * PAP TEST (06/17/2015 7:35 PM EDT) PAP [facility] DEPARTMENT OF PATHOLOGY AND LAB MEDICINE FINAL DX GENERAL CATEGORY: NEGATIVE FOR INTRAEPITHELIAL LESION OR MALIGNANCY. . SPECIMEN ADEQUACY: Satisfactory for evaluation. Transformation zone component present. . APPSB/APPSB [facility] DEPARTMENT OF PATHOLOGY AND LAB MEDICINE CASE # [id number] [facility] DEPARTMENT OF PATHOLOGY AND LAB MEDICINE PROCEDURE DATE 06/17/2015 [facility] DEPARTMENT OF PATHOLOGY AND LAB MEDICINE ORDERING CLINICIAN ANNE-MARIE DUNN M.D. [facility] DEPARTMENT OF PATHOLOGY AND LAB MEDICINE PATHOLOGIST BASIA DELGADO, Outplacement Consultant [facility] DEPARTMENT OF PATHOLOGY AND LAB MEDICINE 06/17/2015 7:35 PM EDT 06/20/2015 9:18 AM EDT Anne-Marie Dunn GENERAL LAB Final Result [facility] [address] [place] [address] [facility] DEPARTMENT OF PATHOLOGY AND LAB MEDICINE [address] [place] [address] from Last 3 Months or Most Recently Relevant to Health Maintenance Care Teams Production Posting Clerk Relationship Specialty Start Date End Date Poc, Non Atrius Pcp Or PCP - General 05/11/15 Poc, Not Required Pcp Or PCP - Payer 05/11/15
--- OUTSIDE RECORDS SUMMARY | 2025-02-09 10:07 | XMS_ITS ---
Author Organization [facility] Address [address] [place] [address] Care Team Providers Care Learning Coordinator Name Role Phone Aimee Heard Unavailable [phone] REASON FOR VISIT with [facility] Encounters Encounter Location Date Provider Diagnosis [address] [place] [phone] 02/20/2024 Aimee Heard PLAN OF TREATMENT No Information Progress Notes * Jenelle MICHAELSB:1970 (54 yo F)Acc No.[id number]:02/20/2024 Patient:??NEDRAFUNMILAYO Corrine Provider:??Aimee Heard PA-C :1970?Age:53 Y?Sex:Fe male Date:02/20/2024 Address:[address] [place], [place] [id number] Subjective: * Chief Complaints: * ?1. with [facility]. * Medical History:?? Objective: Assessment: Plan: * Treatment: * Images: Billing Information: * Visit Code:?? * Procedure Codes:?? * Sign off status: Pending * Provider:??Aimee Heard PA-C Date:??02/09
--- OUTSIDE RECORDS SUMMARY | 2025-02-09 10:07 | XMS_ITS | Patient Health Record ---
Author Organization [facility] Address [address] [place] [address] Care Team Providers Care Woodyard Crane Operator Name Role Phone Aimee Heard Unavailable [phone] ALLERGIES Allergen (clinical drug ingredient) Drug/Non Drug [...] due to excess calories (E66.01) Active confirmed 735783365 Problem Body mass index [BMI] 45.0-49.9, adult (Z68.42) Active confirmed 602338362 Problem Adrenal mass (E27.8) Active confirmed 876682907 Problem Thyroid cyst (E04.1) Active confirmed 13280318 Encounters Encounter Location Date Provider Diagnosis [facility] [address] [address] 02/20/2024 Aimee Svrcek PLAN OF TREATMENT No Information Insurance Providers Payer Name Payer Address Payer Phone Subscriber Number Group Number Insured Name Patient Relationship to Insured Coverage Start Date Coverage End Date Blue Benefits Admin [address] [address] [place] [address] [id number] Corrine Michaels Self - patient is the [...]
--- OUTSIDE RECORDS SUMMARY | 2025-02-09 10:07 | XMS_ITS | Clinical Summary ---
Author Organization [facility] Address [address] [place] [address] Phone Care Team Providers Care Dispute Resolution Specialist Name Role Phone Val Hawley Primary Care Provider [phone] Referring, Not Required Unavailable Unavaila ble Immunizations Name Administration Dates Next Due COVID-19 (Pre-09/02) Moderna Vaccine, mRNA, PF 1 01/02/2021 COVID-19 (Pre-09/02) Pfizer Vaccine, mRNA, PF ,11/07/2020 Influenza, Unspecified Formulation 08/25/2022 Social History Tobacco Use Types Packs/Day Years Used Date Smoking Tobacco: Never Assessed Education Answer Date Recorded Are you interested in more education? Not on miriam e 02/07/2024 Are you concerned about learning? Not on file 02/07/2024 No 02/07/2024 No 02/07/2024 Digital Access Answer Date Recorded No 02/07/2024 No 02/07/2024 Reliable internet access at home? Not on file 02/07/2024 Device with a working camera? Not on file Sex and Gender Information Value Date Recorded Sex Assigned at Female 03/26/2024 4:23 PM EDT Gender Identity Female 03/26/2024 4:23 PM EDT Sexual Orientation Straight 03/26/2024 4: 23 PM EDT Plan of Treatment Health Maintenance Due Date Last Done Comments LIPID PANEL 1971 DEPRESSION SCREENING 1983 SMOKING Hx and SMOKELESS TOBACCO SCREENING 1984 HEPATITIS C SCREENING 1989 HIV ONE-TIME SCREENING (18-6 5 YEARS) 1989 MAMMOGRAM 2011 COLOGUARD 2016 COLONOSCOPY 2016 COLORECTAL CANCER SCREENING 2016 FIT TEST 2016 FOBT 2016 SIGMOIDOSCOPY 2016 VIRTUAL COLONOSCOPY 2016 Adult Td,Tdap Booster 07/20/2021 07/20/2011 PNEUMOCOCCAL VACCINES (50+ years) (1 of 1 - PCV) 2021 ZOSTER VACCINES (1 of 2) 2021 INFLUENZA VACCINE (#1) 2024 08/25/2022 COVID-19 VACCINE (4 - 2023-2 5 season) 2024 11/01/2021, 11/28/2020, 11/07/2020 PAP SMEAR 02/05/2027 02/06/2024 HEPATITIS A VACCINES Aged Out No long er eligible based on patient's age to complete this topic HIB VACCINES Aged Out No longer eligi ble based on patient's age to complete this topic MENINGOCOCCAL VACCINES (ACWY) Aged Out No longer eligible based on patient's age to complete this topic Medical Devices Not on file Procedures Procedure Name Priority Date/Time Associated Diagnosis Comments PAP TEST Routine 02/06/2024 12:00 AM EDT from Last 3 Months or Most Recently Relevant to Health Maintenance Results * Pap Test (02/06/2024 12:00 AM EDT) 02/06/2024 02/07/2024 9:2 1 AM EDT Narrative SEE NARRATIVE - 02/14/2024 10:00 AM EDT [address] [address] Sandblaster Paint Sprayer: Corrine Nguyen MD ?? ADMITTING CLERK Cytology Report FINAL DIAGNOSIS A. ??PAP SMEAR (SUREPATH) CE: SPECIMEN ADEQUACY: Satisfactory for evaluation; transformation zone present. INTERPRETATION: NEGATIVE FOR INTRAEPITHELIAL LESION OR MALIGNANCY. Electronically Signed Out By: ??MERARI Lawton(ASCP) The Pap test is a screening test primarily for squamous cancers and precursors and has associated false-negative and false-positive results. ??New technologies such as liquid-based preparations may decrease but will not eliminate all false-negative results. ??Regular sampling and follow-up of unexplained clinical signs and symptoms are recommended to minimize false negative results. PROCEDURES/ADDENDA HPV Testing (Requested) Ordered Date: 02/07/2024 ? A. PAP SMEAR (SUREPATH) CE: ??Human Papilloma Virus Test NEGATIVE for high-risk Human Papilloma Virus types 16, 18, 45 and the Other high risk probe set (Includes 31, 33, 35, 39, 51, 52, 56, 58, 59, 66, 68) Note: Testing performed by [employer] HR-HPV analysis. ??Clinical correlation is advised. ??This HPV test was performed at [facility], [address] [place] [address]. This test has been FDA approved for both SurePath and ThinPrep cervical cytology specimens. The accuracy and precision of this test for all other specimen sources has been verified in the Cytopathology Laboratory of the [facility] and has not been cleared or approved by the U.S. Food and Drug Administration. Clinical correlation is advised. ? CLINICAL HISTORY Date of Last Menstrual Period: ??Not Provided Menstrual History: ??Post Menopausal Other Clinical Conditions: ??Screening Pap SPECIMEN SOURCE A: PAP SMEAR (SUREPATH) CE Patient Name: ??CORRINE CONNORS : ??1970 (Age: 53) Sex: ??F Institution: ??[facility] Location: ??[facility] Date of Collection: ??02/06/2024 Date of Reported: ??02/14/2024 10:00 Results to: Iza Jerez COLLEGE ADMISSIONS COUNSELOR Iza Jerez MACHINIST CLASS B CYTOLOGY ORD ERABLES SEE NARRATIVE from Last 3 Months or Most Recently Relevant to Health Maintenance Care Teams Dispute Resolution Specialist Relationship Specialty Start Date End Date Val Hawley PA [address] [place] [id number] PCP - General Physician Commercial Carpenter 03/26/24 Referring, Not Required 03/26/24 Additional Source Comments The information contained in this document represents components of the legal health record. It is not the complete legal health record.[facility]
--- OUTSIDE RECORDS SUMMARY | 2025-02-09 10:08 | XMS_ITS ---
Author Organization [facility] Address [address] [place] [address] Care Team Providers Care Detective Chief Name Role Phone Aimee Heard Unavailable [phone] KOFFI VEGA Unavailable [phone] REASON FOR VISIT 2.5 MG Encounters Encounter Location Date Provider Diagnosis [facility] [address] [facility] [address] [place] [address] 01/23/2024 KOFFI VEGA PLAN OF TREATMENT No Information Progress Notes * Aurelia CONNORSGigiB:1970 (54 yo F)Acc No.[id number]:01/23/2024 Progress Note Patient:??Corrine CONNORS Provider:??Koffi Vega MD :1970?Age:53 Y?Sex:Fe male Date:01/23/2024 Address:[address] [place], [place] [id number] Subjective: * Chief Complaints: * ?1. 2.5 MG. * Medical History:?? Objective: Assessment: Plan: * Treatment: * Procedure Codes:??35683 NO S HOW OFFICE VISIT Care Plan: * Problems:?? * Images: Billing Information: * Visit Code:?? * Procedure Codes:?? 80488 NO SHOW OFFICE VISIT. Care Plan Details* * Sign off status: Pending * Provider:??Koffi Vega MD Date:??01/22
--- OUTSIDE RECORDS SUMMARY | 2025-02-09 10:08 | XMS_ITS ---
Author Organization [facility] Address [address] [place] [phone] Care Team Providers Care Heating Engineer Name Role Phone Aimee Heard Unavailable [phone] ALLERGIES Allergen (clinical drug ingredient) Drug/Non Drug [...] due to excess calories (E66.01) Active confirmed 766109188 Problem Body mass index [BMI] 45.0-49.9, adult (Z68.42) Active confirmed 083813706 Problem Thyroid cyst (E04.1) Active confirmed 36471413 Problem Adrenal mass (E27.8) Active confirmed [id number] VITAL SIGNS Blood pressure systolic 118 mm Hg 01/16/20 24 Blood pressure diastolic 78 mm Hg 024 Heart Rate 93 /min 01/16/2024 Height 56 in 01/16/2024 Weight 306 lbs 01/16/2024 BMI 68.6 kg/m2 01/16/2024 Oximetry 99 % 01/16/2024 Encounters Encounter Location Date Provider Diagnosis [facility] [address] [facility] [address] [place] [address] 01/16/2024 Aimee Svrcek Morbid (severe) obes ity [...] track activity level. Consider using apps like [employer], myfitnesspal, lose it, stick as needed for self-monitoring and weight management. Consider group exercises. Consider hiring a personal banking advisor. Regular exercise is weaver to sustainable [...] counseling and psychiatry and Dr Ruiz at [facility]. We would like to cover regular topics [...] Dictation was accomplished with the use of [employer] voice recognition software, prone to medical misidentifications [...] endocrinology will be having repeat testing for Staples's. #History of PE and DVT. Comprehensive workup [...] Consider group exercises. Consider hiring a personal banking advisor. Regular exercise is weaver to sustainable [...] counseling and psychiatry and Dr Ruiz at [facility]. We would like to cover regular topics [...] Dictation was accomplished with the use of [employer] voice recognition software, prone to medical misidentifications [...] endocrinology will be having repeat testing for Staples's. #History of PE and DVT. Comprehensive workup [...] and Eat Fat Get Lean by Dr Pedor Deluna. Self education is important in the [...] track activity level. Consider using apps like [employer], .[employer] Domain[employer]al, lose it, stick as needed for self-monitoring and weight management. Consider group exercises. Consider hiring a personal banking advisor. Regular exercise is weaver to sustainable [...] counseling and psychiatry and Dr Ruiz at [facility]. We would like to cover regular topics [...] Dictation was accomplished with the use of [employer] voice recognition software, prone to medical misidentifications [...] track activity level. Consider using apps like [employer], [employer] Advancepal, lose it, stick as needed for self-monitoring and weight management. Consider group exercises. Consider hiring a personal banking advisor. Regular exercise is weaver to sustainable [...] counseling and psychiatry and Dr Ruiz at [facility]. We would like to cover regular topics [...] Dictation was accomplished with the use of [employer] voice recognition software, prone to medical misidentifications [...] endocrinology will be having repeat testing for Staples's. #History of PE and DVT. Comprehensive workup [...] track activity level. Consider using apps like [employer], .[employer], lose it, stick as needed for self-monitoring and weight management. Consider group exercises. Consider hiring a personal banking advisor. Regular exercise is weaver to sustainable [...] counseling and psychiatry and Dr Ruiz at [facility]. We would like to cover regular topics [...] Dictation was accomplished with the use of [employer] voice recognition software, prone to medical misidentifications [...] track activity level. Consider using apps like [employer], [employer], lose it, stick as needed for self-monitoring and weight management. Consider group exercises. Consider hiring a personal banking advisor. Regular exercise is weaver to sustainable [...] counseling and psychiatry and Dr Ruiz at [facility]. We would like to cover regular topics [...] Dictation was accomplished with the use of [employer] voice recognition software, prone to medical misidentifications [...] Notes * Jenelle CONNORSB:1970 (53 yo F)Acc No.[id number]:01/16/2024 Patient:??Corrine CONNORS Provider:??Aimee Heard PA-C :1970?Age:53 Y?Sex:Fe male Date:01/16/2024 Address:[address] [place] [address] Subjective: * Chief Complaints: * ?1. Pt [...] is currently followed by Angie Hawley at [facility]. She also had a recent consult with Dr. Javed the upholstery mechanic at [facility]. 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 Consider using apps like [employer], myfitnesspal, lose it, stick as needed for self-monitoring and weight management. Consider group exercises. Consider hiring a personal banking advisor. Regular exercise is weaver to sustainable [...] counseling and psychiatry and Dr Ruiz at [facility]. We would like to cover regular topics [...] Dictation was accomplished with the use of [employer] voice recognition software, prone to medical misidentifications [...] * Images: Billing Information: * Visit Code:?? 45032 Office Visit, New Pt., Level 4. Modifiers: [...] is currently followed by Angie Hawley at [facility]. She also had a recent consult with Dr. Javed the upholstery mechanic at [facility]. 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
--- OUTSIDE RECORDS SUMMARY | 2025-02-09 10:08 | XMS_ITS | Clinical Summary ---
Author Organization [facility] Address [address] [place] [address] Care Team Providers Care Sustainability Executive Director Name Role Phone Amee De La Cruz [facility] Primary Care Provider Source Comments PLEASE NOTE, [...] distal, acute, right (HCC-CMS),Bilate ral pulmonary embolism ([facility]-CMS) Take 1 Tablet by mouth once daily 90 Tablet 1 12/18/2022 Active traZODone (DESYREL) 50 mg tabletIndication s:Sleep disturbance Take 0.5-1 Tablets by mouth nightly at bedtime as needed for sleep 30 Tablet 01/15/2023 Active Active Problems Problem Noted Date Diagnosed Date Systemic lupus erythematosus , unspecified SLE type, unspecified organ involvement status ([facility]) 09/10/2022 Bilateral pulmonary embolism (HCC-CMS) 2 [...] 03/30/2022 03/30/2019, 03/30/2019 Hypertension Screening (#1) 05/24/2023 [id number] ( season) 2024 11/01/2021, 11/28/2020, 11/07/2020 Imm-Influenza [...] ?? For additional information please refer to http://education.[employer].Catalyze/faq/OPN811 (This link is being provided for informational/ educational purposes only.) The performance of this assay has not been clinically validated in patients less than 2 years old. 03/30/2019 2:36 PM EDT [facility] Provider Default LAB - BLOOD DRAW Final [...] Maintenance Insurance [employer] Care Teams Sustainability Executive Director Relationship Specialty Start Date End Date Amee De La Cruz FNP [address] [place] [address] PCP - General 11/13/23
== END 2025-02-09 10:15 | disposition home or self-care (01) ==
LOC: HO.HVS 09:11
PROVIDERS: PCP Physician Assistant; Visit Provider Surgery Vascular Surgery
DX: I83.11 Varicose veins of right lower extremity with inflammation (principal); I26.99 Other pulmonary embolism without acute cor pulmonale
CPT/HCPCS: 99214

== ENCOUNTER 2025-02-10 10:19 | Outpatient (AMB) | payer OTHER, SELFPAY ==
[2025-02-10 10:38] VITALS: BP 122/78; PULSE 88; O2SAT 98; BMI 48.6
--- NOTE | 2025-02-10 10:38 | A.OFFVIS_ITS ---
Vital Signs 02/10/25 10:38 Height 5 ft 6 in Weight 300 lb 14.896 oz BMI 48.6 BP 122/78 Blood Pressure Location Rt brachial Position Sitting Pulse 88 Pulse Source Doppler Pulse Oximetry (%) 98 Oxygen Delivery Method Room Air Intake Visit Reasons: Pulmonary Nodule Allergies amoxicillin [From Augmentin] Allergy (Severe, Verified 02/10/25 10:41) Vomiting clavulanic acid [From Augmentin] Allergy (Severe, Verified 02/10/25 10:41) Vomiting nickel Allergy (Verified 02/10/25 10:41) Hives levofloxacin [From Levaquin] Adverse Reaction (Verified 02/10/25 10:41) Anaphylaxis HPI Comments Details: The patient is here for pulmonary evaluation. The patient is a 54 year woman with a significant past medical history of uterine cancer about last year requiring surgery and also history of pulmonary emboli resulting in sub massive PE requiring catheter based thrombolysis. This was many years ago. The patient had been in usual state health until she started developing some pain and swelling of the right knee and behind it. She was evaluated and had the ultrasound demonstrating a DVT. She had also worsening respiratory symptoms and she did come to the hospital and she did have CTA demonstrating extensive pulmonary emboli bilaterally. She also had a 1.7 cm nodular density in the periphery of her left lung in the base. Closer the diaphragmatic sulcus. Therefore she was evaluated by Hematology. She was placed on Eliquis she which she seems to be tolerating. In addition to that she had evaluation of a hypercoagulable workup in the past and she was told that it was likely due to her Moderna vaccine that she received at that time for COVID. In the meantime the patient has been tolerating the Eliquis. She does complaint of dyspnea on exertion. We did go for brief walking oximetry. Although her pulse ox was 95- 90% with activity heart rate was about 115-120 beats per minute. Will have her get an echocardiogram at this time. The patient was wondering about a biopsy. At this time will go ahead and wait for her PET scan which is going to be the end of the month. I do believe that this area will be hard to biopsy because is close to the diaphragm and we did diaphragmatic excursion will be a difficult target. That being said it could also be inflammatory or a small infarct indeed because of extensive thromboembolic disease. So I would favor for her holding onto the PET scan to decide about the biopsy. In the meantime she is going to continue on the Eliquis for now. And will get the echocardiogram. Will plan to get further imaging to make sure resolution of the DVT and the embolic disease in the near future. [facility] Medical History (Updated 02/10/25 @ 23:33 by Candelario Rowan MD) Pulmonary nodule 1 cm or greater in diameter DVT (deep venous thrombosis) Asthma Lupus Social History Alcohol intake: current Alcohol intake frequency: a few times a month service: No Current occupational status: employed Review of Systems Const All systems reviewed & are unremarkable except as noted in HPI and below Reports no additional complaints ENT Reports Normal hearing present Card Denies chest pain, Denies chest pain at rest, Denies chest pain with activity, Denies pedal edema, Reports palpitations and Reports dyspnea on exertion Resp Denies cough and Reports dyspnea on exertion GI Denies abdominal pain Musc Denies abnormal gait, Denies muscle cramps and Denies radiating pain into limb Skin/Breast Denies skin ulcer and Denies wounds Neuro Reports Normal hearing present and Denies abnormal gait Psych Reports no additional complaints Endo Reports palpitations Physical Exam Vital Signs: Last Vital Signs Pulse 88 02/10/25 10:38 BP 122/78 02/10/25 10:38 Pulse Ox 98 02/10/25 10:38 Oxygen Delivery Method Room Air 02/10/25 10:38 BMI result Body Mass Index 48.6 Const General: cooperative, healthy appearing and comfortable Orientation/consciousness: oriented to person, oriented to place and oriented to time HEENT Head: Yes normal to inspection Neck Neck: Yes normal visual inspection Carotids: no bruits Chest Chest palpation & inspection: normal inspection of the chest Resp Effort & Inspection: normal respiratory effort and able to speak in complete sentences Auscultation: clear to auscultation bilaterally, no rales, no rhonchi and no wheezes Cardio Rate: regular rate Rhythm: regular rhythm Heart sounds: S1 normal heart sound present and S2 normal heart sound present GI Inspection: Yes normal to inspection Skin Wounds: no wounds Hair: normal Neuro General: oriented to person, oriented to place and oriented to time Cranial nerves: Yes Normal hearing present Extrem Other: venous exam: No significant superficial varicosities or spider telangiectasias, minimal edema General: No clubbing, No cyanosis and No edema Psych Appearance: grossly normal Mental Status: mental status grossly normal Speech and movement: Normal speech and movement present Assessment & Plan Assessment & Plan (1) Pulmonary embolism: Code(s): I26.99 - Other pulmonary embolism without acute cor pulmonale Category: Medical Qualifiers: Pulmonary embolism type: multiple subsegmental (without acute cor pulmonale) Qualified Code(s): I26.94 - Multiple subsegmental thrombotic pulmonary emboli without acute cor pulmonale (2) DVT (deep venous thrombosis): Code(s): I82.409 - Acute embolism and thrombosis of unspecified deep veins of unspecified lower extremity Category: Medical Qualifiers: DVT location: lower extremity Affected thrombotic vein of extremity: popliteal Chronicity: acute Laterality: right Qualified Code(s): I82.431 - Acute embolism and thrombosis of right popliteal vein (3) Pulmonary nodule 1 cm or greater in diameter: Code(s): R91.1 - Solitary pulmonary nodule Category: Medical (4) Asthma: Code(s): J45.909 - Unspecified asthma, uncomplicated Category: Medical Qualifiers: Asthma severity: mild Asthma persistence: intermittent Asthma complication type: uncomplicated Qualified Code(s): J45.20 - Mild intermittent asthma, uncomplicated Plan continue Eliquis, life long now with 2nd serious episode Awaiting PET, will need a biopsy if the LLL nodule is hypermetabolic. CT guided will be difficult due to the diaphragmatic excursion ECHO doppler in 2 months DUANE as needed F/U 2-3 months Orders: Orders CA echo transthoracic complete Today I26.99 - Other pulmonary embolism without acute cor pulmonale, I27.20 - Pulmonary hypertension, unspecified US venous duplex LE RT 2 Months I83.11 - Varicose veins of right lower extremity with inflammation Coding Level of Care Code New Pt Level 5 (88219) Diagnoses Multiple subsegmental pulmonary emboli without acute cor pulmonale I26.94 Pulmonary embolism type: multiple subsegmental (without acute cor pulmonale) Acute deep vein thrombosis (DVT) of popliteal vein of right lower extremity I82.431 DVT location: lower extremity Affected thrombotic vein of extremity: popliteal Chronicity: acute Laterality: right Pulmonary nodule 1 cm or greater in diameter R91.1 Mild intermittent asthma without complication J45.20 Asthma severity: mild Asthma persistence: intermittent Asthma complication type: uncomplicated Time Spent (min) 60
--- OUTSIDE RECORDS SUMMARY | 2025-02-10 12:05 | XMS_ITS | Clinical Summary ---
Author Organization [employer] [facility] Address [address] [place] [address] [place] [address] Care Team Providers Care Fractionation Plant Supervisor Name Role Phone Poc, Non Atrius Pcp [...] Associated Diagnosis Comments PAP TEST THINPREP VIAL (COMPLIANCE PROFESSIONAL) Routine 06/17/2015 7:35 PM EDT Screening for cervical cancer from Last 3 Months or Most Recently Relevant to Health Maintenance Results * PAP TEST (06/17/2015 7:35 PM EDT) PAP NILM [facility] DEPARTMENT OF PATHOLOGY AND LAB MEDICINE FINAL DX GENERAL CATEGORY: NEGATIVE FOR INTRAEPITHELIAL LESION OR MALIGNANCY. . SPECIMEN ADEQUACY: Satisfactory for evaluation. Transformation zone component present. . APPSB/APPSB [facility] DEPARTMENT OF PATHOLOGY AND LAB MEDICINE CASE # [id number] [facility] DEPARTMENT OF PATHOLOGY AND LAB MEDICINE PROCEDURE DATE 06/17/2015 [facility] DEPARTMENT OF PATHOLOGY AND LAB MEDICINE ORDERING CLINICIAN ANNE-MARIE DUNN M.D. [facility] DEPARTMENT OF PATHOLOGY AND LAB MEDICINE PATHOLOGIST BASIA DELGADO, Business Objects Report Developer [facility] DEPARTMENT OF PATHOLOGY AND LAB MEDICINE 06/17/2015 7:35 PM EDT 06/20/2015 9:18 AM EDT Anne-Marie Dunn GENERAL LAB Final Result [facility] [address] [place] [address] [facility] DEPARTMENT OF PATHOLOGY AND LAB MEDICINE [address] [place] [address] from Last 3 Months or Most Recently Relevant to Health Maintenance Care Teams Fractionation Plant Supervisor Relationship Specialty Start Date End Date Poc, Non Atrius Pcp Or PCP - General 05/11/15 Poc, Not Required Pcp Or PCP - Payer 05/11/15
--- OUTSIDE RECORDS SUMMARY | 2025-02-10 12:05 | XMS_ITS ---
Author Organization [facility] Address [address] [place] [address] Care Team Providers Care Health Lead Name Role Phone Aimee Heard Unavailable [phone] ALLERGIES Allergen (clinical drug ingredient) Drug/Non Drug [...] due to excess calories (E66.01) Active confirmed 827742438 Problem Body mass index [BMI] 45.0-49.9, adult (Z68.42) Active confirmed 817544260 Problem Thyroid cyst (E04.1) Active confirmed 19723855 Problem Adrenal mass (E27.8) Active confirmed 658961118 VITAL SIGNS Blood pressure systolic 118 mm Hg 01/16/20 24 Blood pressure diastolic 78 mm Hg 024 Heart Rate 93 /min 01/16/2024 Height 56 in 01/16/2024 Weight 306 lbs 01/16/2024 BMI 68.6 kg/m2 01/16/2024 Oximetry 99 % 01/16/2024 Encounters Encounter Location Date Provider Diagnosis [facility] 119 [address] [facility] 119 [place] [address] 01/16/2024 Aimee Svrcek Morbid (severe) obes ity [...] track activity level. Consider using apps like SimpliVT, myfitnesspal, lose it, stick as needed for self-monitoring and weight management. Consider group exercises. Consider hiring a rehab trainer. Regular exercise is weaver to sustainable health [...] counseling and psychiatry and Dr Ruiz at [facility]. We would like to cover regular topics [...] Dictation was accomplished with the use of [employer] voice recognition software, prone to medical misidentifications [...] endocrinology will be having repeat testing for Jemison's. #History of PE and DVT. Comprehensive workup [...] Eat Fat Get Lean by Dr Pedro Dleuna. Self education is important in the journey [...] management. Consider group exercises. Consider hiring a rehab trainer. Regular exercise is weaver to sustainable health [...] counseling and psychiatry and Dr Ruiz at [facility]. We would like to cover regular topics [...] Dictation was accomplished with the use of [employer] voice recognition software, prone to medical misidentifications [...] endocrinology will be having repeat testing for Jemison's. #History of PE and DVT. Comprehensive workup [...] track activity level. Consider using apps like SimpliVT, Vocalcompal, lose it, stick as needed for self-monitoring and weight management. Consider group exercises. Consider hiring a rehab trainer. Regular exercise is weaver to sustainable health [...] counseling and psychiatry and Dr Ruiz at [facility]. We would like to cover regular topics [...] Dictation was accomplished with the use of [employer] voice recognition software, prone to medical misidentifications [...] complex vitamin and also discussed option of CECEILA which she declines today. #Thyroid cyst. 3 [...] track activity level. Consider using apps like SimpliVT, myfitCDB Infotekpal, lose it, stick as needed for self-monitoring and weight management. Consider group exercises. Consider hiring a rehab trainer. Regular exercise is weaver to sustainable health [...] counseling and psychiatry and Dr Ruiz at [facility]. We would like to cover regular topics [...] Dictation was accomplished with the use of [employer] voice recognition software, prone to medical misidentifications [...] endocrinology will be having repeat testing for Jemison's. #History of PE and DVT. Comprehensive workup [...] track activity level. Consider using apps like SimpliVT, Vocalcompal, lose it, stick as needed for self-monitoring and weight management. Consider group exercises. Consider hiring a rehab trainer. Regular exercise is weaver to sustainable health [...] counseling and psychiatry and Dr Ruiz at [facility]. We would like to cover regular topics [...] Dictation was accomplished with the use of [employer] voice recognition software, prone to medical misidentifications [...] track activity level. Consider using apps like SimpliVT, Vocalcompal, lose it, stick as needed for self-monitoring and weight management. Consider group exercises. Consider hiring a rehab trainer. Regular exercise is weaver to sustainable health [...] counseling and psychiatry and Dr Ruiz at [facility]. We would like to cover regular topics [...] Dictation was accomplished with the use of [employer] voice recognition software, prone to medical misidentifications [...] Notes * Jenelle CONNORSB:1970 (53 yo F)Acc No.[id number]:01/16/2024 Patient:??Corrine CONNORS Provider:??Aimee Heard PA-C :1970?Age:53 Y?Sex:Fe male Date:01/16/2024 Address:[address] [place] [address] Subjective: * Chief Complaints: * ?1. Pt [...] mass. She is currently followed by Angie Hawlye at [facility]. She also had a recent consult with Dr. Javed the principal secretary at [facility]. 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 She is followed by Dr. aJved with endocrinology. No personal or family history [...] track activity level. Consider using apps like SimpliVT, myfitnesspal, lose it, stick as needed for self-monitoring and weight management. Consider group exercises. Consider hiring a rehab trainer. Regular exercise is weaver to sustainable health [...] counseling and psychiatry and Dr Ruiz at [facility]. We would like to cover regular topics [...] Dictation was accomplished with the use of [employer] voice recognition software, prone to medical misidentifications [...] * Images: Billing Information: * Visit Code:?? 82867 Office Visit, New Pt., Level 4. Modifiers: [...] is currently followed by Angie Hawley at [facility]. She also had a recent consult with Dr. Javed the principal secretary at [facility]. 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
--- OUTSIDE RECORDS SUMMARY | 2025-02-10 12:05 | XMS_ITS ---
Author Organization [facility] Address [address] [place] [address] Care Team Providers Care Art Conservator Name Role Phone Aimee Heard Unavailable [phone] KOFFI VEGA Unavailable [phone] REASON FOR VISIT 2.5 MG Encounters Encounter Location Date Provider Diagnosis [facility] [address] [facility] 119 [place] [address] 01/23/2024 KOFFI VEGA PLAN OF TREATMENT No Information Progress Notes * Aurelia CONNORSGigiB:1970 (54 yo F)Acc No.[id number]:01/23/2024 Progress Note Patient:??Corrine CONNORS Provider:??Koffi Vega MD :1970?Age:53 Y?Sex:Fe male Date:01/23/2024 Address:[address] [place], [place] [id number] Subjective: * Chief Complaints: * ?1. 2.5 MG. * Medical History:?? Objective: Assessment: Plan: * Treatment: * Procedure Codes:??67958 NO S HOW OFFICE VISIT Care Plan: * Problems:?? * Images: Billing Information: * Visit Code:?? * Procedure Codes:?? 07468 NO SHOW OFFICE VISIT. Care Plan Details* * Sign off status: Pending * Provider:??Koffi Vega MD Date:??01/22
--- OUTSIDE RECORDS SUMMARY | 2025-02-10 12:05 | XMS_ITS | Patient Health Record ---
Author Organization [facility] Address [address] [place] [address] Care Team Providers Care Civil Design Technician Name Role Phone Aimee Heard Unavailable [phone] ALLERGIES Allergen (clinical drug ingredient) Drug/Non Drug [...] due to excess calories (E66.01) Active confirmed 536743356 Problem Body mass index [BMI] 45.0-49.9, adult (Z68.42) Active confirmed 545699783 Problem Adrenal mass (E27.8) Active confirmed 730904198 Problem Thyroid cyst (E04.1) Active confirmed 15337609 Encounters Encounter Location Date Provider Diagnosis [email or web address] [address] [address] 02/20/2024 Aimee Svrcek PLAN OF TREATMENT No Information Insurance Providers Payer Name Payer Address Payer Phone Subscriber Number Group Number Insured Name Patient Relationship to Insured Coverage Start Date Coverage End Date Blue Benefits Admin [address] [address] [place] [address] [id number] Corrine Michaels Self - patient is the [...]
--- OUTSIDE RECORDS SUMMARY | 2025-02-10 12:05 | XMS_ITS | Clinical Summary ---
Author Organization [facility] Address [address] [place] [address] Care Team Providers Care Marble Machine Operator Name Role Phone Amee De La Cruz [facility] Primary Care Provider [phone] Source Comments PLEASE NOTE, if this patient [...] distal, acute, right (HCC-CMS),Bilate ral pulmonary embolism ([facility]) Take 1 Tablet by mouth once daily 90 Tablet 1 12/18/2022 Active traZODone (DESYREL) 50 mg tabletIndication s:Sleep disturbance Take 0.5-1 Tablets by mouth nightly at bedtime as needed for sleep 30 Tablet 01/15/2023 Active Active Problems Problem Noted Date Diagnosed Date Systemic lupus erythematosus , unspecified SLE type, unspecified organ involvement status ([facility]) 09/10/2022 Bilateral pulmonary embolism (HCC-CMS) [...] Health Maintenance Due Date Last Done Comments Anxiety Screening 1970 HPV Screening 1970 Hepatitis C Screening 1971 Lipid Screening 1971 Pap + HPV 1971 Tobacco Screening 1971 Imm-Hepatitis B (1 of 3 - 19 + 3-dose series) 1990 Cervical Cancer Screening 1992 Pap Smear 1992 Breast Cancer Screening (Mammogram) 2011 CT Colonography 2016 FIT/gFOBT 2016 Fecal DNA 2016 Flexible Sigmoidoscopy 2016 Imm-Zoster, Recombinant (1 of 2) 2021 Diabetes Screening 03/30/2022 03/30/2019, 03/30/2019 Hypertension Screening (#1) 05/24/2023 [id number] ( season) 2024 11/01/2021, 11/28/2020, 11/07/2020 Imm-Influenza [...] ?? For additional information please refer to http://education.myContactCard.A-Gas/faq/TBA491 (This link is being provided for informational/ educational purposes only.) The performance of this assay has not been clinically validated in patients less than 2 years old. 03/30/2019 2:36 PM EDT [facility] Provider Default LAB - BLOOD DRAW [...] Maintenance Insurance [employer] Care Teams Marble Machine Operator Relationship Specialty Start Date End Date Amee De La Cruz FNP [address] [place] [address] PCP - General 11/13/23
--- OUTSIDE RECORDS SUMMARY | 2025-02-10 12:05 | XMS_ITS | Clinical Summary ---
Author Organization [facility] Address [address] [place] [address] Phone Care Team Providers Care Electric Installer Name Role Phone Val Hawley Primary Care Provider [phone] Referring, Not Required Unavailable Unavaila ble Immunizations [...] SEE NARRATIVE - 02/14/2024 10:00 AM EDT [address] [address] Chart Writer: Corrine Nguyen MD ?? TIG WELDER Cytology Report FINAL DIAGNOSIS A. ??PAP SMEAR [...] 59, 66, 68) Note: Testing performed by [employer] ([employer]) HR-HPV analysis. ??Clinical correlation is advised. ??This HPV test was performed at [facility], [address] [place] [address]. This test has been FDA approved for both SurePath and ThinPrep cervical cytology specimens. The accuracy and precision of this test for all other specimen sources has been verified in the Cytopathology Laboratory of the [facility] and has not been cleared or approved by the U.S. Food and Drug Administration. Clinical correlation is advised. ? CLINICAL HISTORY Date of Last Menstrual Period: ??Not Provided Menstrual History: ??Post Menopausal Other Clinical Conditions: ??Screening Pap SPECIMEN SOURCE A: PAP SMEAR (SUREPATH) CE Patient Name: ??CORRINE CONNORS : ??1970 (Age: 53) Sex: ??F Institution: ??[facility] Location: ??[facility] Date of Collection: ??02/06/2024 Date of Reported: ??02/14/2024 10:00 Results to: Iza Jerez JANITOR CUSTODIAN Iza Jerez TELEGRAPH PRINTER MECHANIC CYTOLOGY ORD ERABLES SEE NARRATIVE from Last 3 Months or Most Recently Relevant to Health Maintenance Care Teams Electric Installer Relationship Specialty Start Date End Date Val Hawley PA [address] [place] [address] PCP - General Physician Senior Administrative Support 03/26/24 Referring, Not Required 03/26/24 Additional Source Comments The information contained in this document represents components of the legal health record. It is not the complete legal health record.[facility]
--- OUTSIDE RECORDS SUMMARY | 2025-02-10 12:05 | XMS_ITS ---
Author Organization [facility] Address [address] [place] [address] Care Team Providers Care Supervisor Hand Silvering Name Role Phone Aimee Heard Unavailable [phone] REASON FOR VISIT with [facility] Encounters Encounter Location Date Provider Diagnosis [address] [place] [address] 02/20/2024 Aimee Heard PLAN OF TREATMENT No Information Progress Notes * Jenelle MICHAELSB:1970 (54 yo F)Acc No.[id number]:02/20/2024 Patient:??NEDRAFUNMILAYO Corrine Provider:??Aimee Heard PA-C :1970?Age:53 Y?Sex:Fe male Date:02/20/2024 Address:[address] [place], [place] [phone] Subjective: * Chief Complaints: * ?1. with [facility]. * Medical History:?? Objective: Assessment: Plan: * Treatment: * Images: Billing Information: * Visit Code:?? * Procedure Codes:?? * Sign off status: Pending * Provider:??Aimee Heard PA-C Date:??02/09
== END 2025-02-10 11:04 | disposition home or self-care (01) ==
LOC: HO.HPS 10:20
PROVIDERS: PCP Physician Assistant; Visit Provider Hospitalist
DX: R91.1 Solitary pulmonary nodule (principal); I26.94 Multiple subsegmental thrombotic pulmonary emboli without acute cor pulmonale; I82.431 Acute embolism and thrombosis of right popliteal vein; J45.20 Mild intermittent asthma, uncomplicated
CPT/HCPCS: 99205

== ENCOUNTER 2025-03-02 07:57 | Outpatient (REF) | payer OTHER, SELFPAY ==
--- NOTE | ~2025-03-02 | PE_ITS ---
EXAMINATION: FLUORINE-18 FDG PET/CT SCAN CLINICAL INFORMATION: History of endometrial carcinoma, adrenal and thyroid nodule. TECHNIQUE: 61 minutes following the intravenous administration of 23.9 mCi of fluorine 18 FDG, images from the skull base to proximal thigh were obtained using a combined PET/CT scanner with CT scan based attenuation correction. No oral or intravenous contrast was administered. Transverse, coronal, sagittal, and volume reconstruction projections were obtained. The patient's blood glucose as determined by a finger stick, was 86 mg/dL immediately prior to injection. The radiotracer was injected intravenously through right hand without any complications. Total CT exam dose-length product 1455 mGy-cm. * These CT images were obtained using dose optimization techniques as appropriate, variously including the following: Automated exposure control * Adjustment of mA and/or kV according to patient size (this includes techniques or standardized protocols for targeted exams where dose is matched to indication/reason for exam; i.e. extremities or head) * Use of iterative reconstruction technique COMPARISON: Ultrasound thyroid 02/04/2025 and CTA chest 01/24/2025 FINDINGS: HEAD AND NECK: There is a trace focal FDG activity seen in the left posterior vocal cords and left prevertebral soft tissues there are nonspecific. No additional areas of abnormal FDG activity seen. No large intracranial hemorrhage, acute territorial infarct or significant shift of midline structures. CHEST: Ports and Devices: None Lungs: No abnormal FDG activity seen in the lung parenchyma. Especially no abnormal activity seen in the left lung base nodule described on the previous CT chest it appears smaller on present CT chest exam image 163/2. Pleura: No significant pleural effusion. Lymph Nodes: No tracer-avid mediastinal, hilar or internal mammary or axillary lymphadenopathy. Mediastinum: There is no significant pericardial effusion/thickening. Breasts/Chest Wall: No abnormal radiotracer uptake. ABDOMEN/PELVIS: Liver/Biliary System: No focal tracer-avid liver lesion. The gallbladder appears unremarkable. Pancreas: Normal.No pancreatic ductal dilatation. Peripancreatic soft tissues are normal. Spleen: No abnormal radiotracer uptake. No evidence of splenomegaly. Adrenal Glands: No abnormal radiotracer uptake. Kidneys: No hydronephrosis, hydroureter or renal calculi bilaterally. Bowel: There is no significant bowel dilatation to suggest obstruction. The small bowel loops are normal caliber. Appendix is mural caliber no free air or free fluid seen. Lymph Nodes: No tracer avid retroperitoneal, mesenteric or pelvic and/or groin lymphadenopathy. Pelvic Organs: The urinary bladder is underdistended. MUSCULOSKELETAL: No aggressive lytic or sclerotic process seen VASCULAR: Unremarkable. PET/PET CT fusion skull to thigh IMPRESSION: No abnormal FDG activity on whole body bone scan to suspect any metastatic or primary lesion. There is nonspecific mild metabolic activity seen in the left posterior focal cords and the prevertebral soft tissues.] There is a clinical concern further evaluation with direct visualization with a scope can be performed There is no focal activity seen in the left lung base nodule described on previous previous CT chest. Likely focal atelectasis or metabolically inactive lymph node.. Electronically signed by: Dorian Gaitan MD 03/02/2025 12:39 PM EDT
--- OUTSIDE RECORDS SUMMARY | 2025-03-02 08:03 | XMS_ITS | Patient Health Record ---
Author Organization [facility] Address [address] [place] [address] Care Team Providers Care Box Press Operator Name Role Phone Aimee Heard Unavailable [phone] ALLERGIES Allergen (clinical drug ingredient) Drug/Non Drug [...] due to excess calories (E66.01) Active confirmed 168045261 Problem Body mass index [BMI] 45.0-49.9, adult (Z68.42) Active confirmed 045290080 Problem Adrenal mass (E27.8) Active confirmed 825063267 Problem Thyroid cyst (E04.1) Active confirmed 92694871 PLAN OF TREATMENT No Information Insurance Providers Payer Name Payer Address Payer Phone Subscriber Number Group Number Insured Name Patient Relationship to Insured Coverage Start Date Coverage End Date Blue Benefits [place] [address] [address] [place] [address] [id number] Corrine Michaels Self - patient is the [...]
--- OUTSIDE RECORDS SUMMARY | 2025-03-02 08:03 | XMS_ITS | Clinical Summary ---
Author Organization [facility] Address [address] [place] [address] Phone Care Team Providers Care Riveter Helper Name Role Phone Val Hawley Primary Care Provider [phone] Referring, Not Required Unavailable Unavaila ble Immunizations [...] SEE NARRATIVE - 02/14/2024 10:00 AM EDT [address] [address] Therapeutic Specialist: Corrine Nguyen MD ?? BUFFING MACHINE OPERATOR SEMIAUTOMATIC Cytology Report FINAL DIAGNOSIS A. ??PAP SMEAR [...] 59, 66, 68) Note: Testing performed by [employer] HR-HPV analysis. ??Clinical correlation is advised. ??This HPV test was performed at [facility], [address] [place] [address]. This test has been FDA approved for both SurePath and ThinPrep cervical cytology specimens. The accuracy and precision of this test for all other specimen sources has been verified in the Cytopathology Laboratory of the [facility] and has not been cleared or approved by the U.S. Food and Drug Administration. Clinical correlation is advised. ? CLINICAL HISTORY Date of Last Menstrual Period: ??Not Provided Menstrual History: ??Post Menopausal Other Clinical Conditions: ??Screening Pap SPECIMEN SOURCE A: PAP SMEAR (SUREPATH) CE Patient Name: ??CORRINE CONNORS : ??1970 (Age: 53) Sex: ??F Institution: ??[facility] Location: ??[facility] Date of Collection: ??02/06/2024 Date of Reported: ??02/14/2024 10:00 Results to: Iza Jerez TRAFFIC PERSONNEL SUPERVISOR Iza Jerez EMULSION OPERATOR CYTOLOGY ORD ERABLES SEE NARRATIVE from Last 3 Months or Most Recently Relevant to Health Maintenance Care Teams Riveter Helper Relationship Specialty Start Date End Date Val Hawley PA [address] [place] [phone] PCP - General Physician Fiber Technician 03/26/24 Referring, Not Required 03/26/24 Additional Source Comments The information contained in this document represents components of the legal health record. It is not the complete legal health record.[facility]
--- OUTSIDE RECORDS SUMMARY | 2025-03-02 08:03 | XMS_ITS ---
Author Organization [facility] Address [address] [place] [address] Care Team Providers Care Rheumatology Specialist Name Role Phone Aimee Heard Unavailable [phone] REASON FOR VISIT with [facility] Encounters Encounter Location Date Provider Diagnosis [address] [place] [address] 02/20/2024 Aimee Heard PLAN OF TREATMENT No Information Progress Notes * Jenelle MICHAELSB:1970 (54 yo F)Acc No.[id number]:02/20/2024 Patient:??NEDRAFUNMILAYOCorrine Provider:??Aimee Heard PA-C :1970?Age:53 Y?Sex:Fe male Date:02/20/2024 Address:[address] [place], [place] [phone] Subjective: * Chief Complaints: * ?1. with [facility]. * Medical History:?? Objective: Assessment: Plan: * Treatment: * Images: Billing Information: * Visit Code:?? * Procedure Codes:?? * Sign off status: Pending * Provider:??Aimee Heard PA-C Date:??02/09
--- OUTSIDE RECORDS SUMMARY | 2025-03-02 08:03 | XMS_ITS | Clinical Summary ---
Author Organization [facility] Address [address] [place] [address] Care Team Providers Care Master Machinist Name Role Phone Amee De La Cruz [facility] Primary Care Provider Source Comments PLEASE NOTE, [...] distal, acute, right (HCC-CMS),Bilate ral pulmonary embolism ([facility]) Take 1 Tablet by mouth once daily 90 Tablet 1 12/18/2022 Active traZODone (DESYREL) 50 mg tabletIndication s:Sleep disturbance Take 0.5-1 Tablets by mouth nightly at bedtime as needed for sleep 30 Tablet 01/15/2023 Active Active Problems Problem Noted Date Diagnosed Date Systemic lupus erythematosus , unspecified SLE type, unspecified organ involvement status ([facility]) 09/10/2022 Bilateral pulmonary embolism (HCC-CMS) 2 [...] 03/30/2022 03/30/2019, 03/30/2019 Hypertension Screening (#1) 05/24/2023 [id number] ( season) 2024 11/01/2021, 11/28/2020, 11/07/2020 Imm-Influenza [...] ?? For additional information please refer to http://education.MessageGate.Simplist/faq/TXI823 (This link is being provided for informational/ educational purposes only.) The performance of this assay has not been clinically validated in patients less than 2 years old. 03/30/2019 2:36 PM EDT [facility] Provider Default LAB - BLOOD DRAW Final [...] Maintenance Insurance [employer] Care Teams Master Machinist Relationship Specialty Start Date End Date Amee De La Cruz FNP [address] [place] [address] PCP - General 11/13/23
--- OUTSIDE RECORDS SUMMARY | 2025-03-02 08:03 | XMS_ITS ---
Author Organization [facility] Address [address] [place] [address] Care Team Providers Care Herbicide Service Sales Representative Name Role Phone Aimee Heard Unavailable [phone] ALLERGIES Allergen (clinical drug ingredient) Drug/Non Drug [...] due to excess calories (E66.01) Active confirmed 649628676 Problem Body mass index [BMI] 45.0-49.9, adult (Z68.42) Active confirmed 197558117 Problem Thyroid cyst (E04.1) Active confirmed 52888482 Problem Adrenal mass (E27.8) Active confirmed 837866747 VITAL SIGNS Blood pressure systolic 118 mm Hg 01/16/20 24 Blood pressure diastolic 78 mm Hg 024 Heart Rate 93 /min 01/16/2024 Height 56 in 01/16/2024 Weight 306 lbs 01/16/2024 BMI 68.6 kg/m2 01/16/2024 Oximetry 99 % 01/16/2024 Encounters Encounter Location Date Provider Diagnosis [facility] 119 299 [facility] 119 [place] [address] 01/16/2024 Aimee Svrcek Morbid (severe) obes ity [...] track activity level. Consider using apps like MessageCast, myfitnesspal, lose it, stick as needed for self-monitoring and weight management. Consider group exercises. Consider hiring a personal lines insurance advisor. Regular exercise is weaver to sustainable [...] counseling and psychiatry and Dr Ruiz at [facility]. We would like to cover regular topics [...] Dictation was accomplished with the use of Callvine voice recognition software, prone to medical misidentifications [...] endocrinology will be having repeat testing for Monroe's. #History of PE and DVT. Comprehensive workup [...] group exercises. Consider hiring a personal lines insurance advisor. Regular exercise is weaver to sustainable [...] about local counseling and psychiatry and Dr uRiz at [facility]. We would like to cover regular topics [...] Dictation was accomplished with the use of Callvine voice recognition software, prone to medical misidentifications [...] track activity level. Consider using apps like MessageCast, Mayur Uniquoters Limitedpal, lose it, stick as needed for self-monitoring and weight management. Consider group exercises. Consider hiring a personal lines insurance advisor. Regular exercise is weaver to sustainable [...] counseling and psychiatry and Dr Ruiz at [facility]. We would like to cover regular topics [...] Dictation was accomplished with the use of Callvine voice recognition software, prone to medical misidentifications [...] complex vitamin and also discussed option of CECELAI which she declines today. #Thyroid cyst. 3 [...] track activity level. Consider using apps like MessageCast, [email or web address], lose it, stick as needed for self-monitoring and weight management. Consider group exercises. Consider hiring a personal lines insurance advisor. Regular exercise is weaver to sustainable [...] counseling and psychiatry and Dr Ruiz at [facility]. We would like to cover regular topics [...] Dictation was accomplished with the use of Callvine voice recognition software, prone to medical misidentifications [...] endocrinology will be having repeat testing for Monroe's. #History of PE and DVT. Comprehensive workup [...] track activity level. Consider using apps like MessageCast, Mayur Uniquoters Limitedpal, lose it, stick as needed for self-monitoring and weight management. Consider group exercises. Consider hiring a personal lines insurance advisor. Regular exercise is weaver to sustainable [...] counseling and psychiatry and Dr Ruiz at [facility]. We would like to cover regular topics [...] Dictation was accomplished with the use of Callvine voice recognition software, prone to medical misidentifications [...] endocrinology will be having repeat testing for Monroe's. #History of PE and DVT. Comprehensive workup [...] track activity level. Consider using apps like MessageCast, Mayur Uniquoters Limitedpal, lose it, stick as needed for self-monitoring and weight management. Consider group exercises. Consider hiring a personal lines insurance advisor. Regular exercise is weaver to sustainable [...] counseling and psychiatry and Dr Ruiz at [facility]. We would like to cover regular topics [...] Dictation was accomplished with the use of Callvine voice recognition software, prone to medical misidentifications [...] Notes * Jenelle CONNORSB:1970 (53 yo F)Acc No.[id number]:01/16/2024 Patient:??Corrine CONNORS Provider:??Aimee Heard PA-C :1970?Age:53 Y?Sex:Fe male Date:01/16/2024 Address:[address] [place] [address] Subjective: * Chief Complaints: * ?1. Pt [...] mass. She is currently followed by Angie Halwey at [facility]. She also had a recent consult with Dr. Javed the pass worker at [facility]. 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 #History of PE and DVT. Comprehensive workup [...] track activity level. Consider using apps like MessageCast, myfitnesspal, lose it, stick as needed for self-monitoring and weight management. Consider group exercises. Consider hiring a personal lines insurance advisor. Regular exercise is weaver to sustainable [...] counseling and psychiatry and Dr Ruiz at [facility]. We would like to cover regular topics [...] Dictation was accomplished with the use of Callvine voice recognition software, prone to medical misidentifications [...] * Images: Billing Information: * Visit Code:?? 33407 Office Visit, New Pt., Level 4. Modifiers: [...] is currently followed by Angie Hawley at [facility]. She also had a recent consult with Dr. Javed the pass worker at [facility]. 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
--- OUTSIDE RECORDS SUMMARY | 2025-03-02 08:03 | XMS_ITS | Clinical Summary ---
Author Organization [facility] Address [address] [place] [address] [place] [address] Care Team Providers Care Alternative Financing Specialist Name Role Phone Poc, Non Atrius Pcp [...] Associated Diagnosis Comments PAP TEST THINPREP VIAL (DATASTAGE ARCHITECT) Routine 06/17/2015 7:35 PM EDT Screening for [...] OF PATHOLOGY AND LAB MEDICINE CASE # [id number] [facility] DEPARTMENT OF PATHOLOGY AND LAB MEDICINE PROCEDURE DATE 06/17/2015 [facility] DEPARTMENT OF PATHOLOGY AND LAB MEDICINE ORDERING CLINICIAN ANNE-MARIE DUNN M.D. [facility] DEPARTMENT OF PATHOLOGY AND LAB MEDICINE PATHOLOGIST BASIA DELGADO, Maxillofacial Surgeon [facility] DEPARTMENT OF PATHOLOGY AND LAB MEDICINE 06/17/2015 7:35 PM EDT 06/20/2015 9:18 AM EDT Anne-Marie Dunn GENERAL LAB Final Result [facility] [address] [place] [address] [facility] DEPARTMENT OF PATHOLOGY AND LAB MEDICINE [address] [place] [address] from Last 3 Months or Most Recently Relevant to Health Maintenance Care Teams Alternative Financing Specialist Relationship Specialty Start Date End Date Poc, Non Atrius Pcp Or PCP - General 05/11/15 Poc, Not Required Pcp Or PCP - Payer 05/11/15
--- OUTSIDE RECORDS SUMMARY | 2025-03-02 08:04 | XMS_ITS ---
Author Organization [facility] Address [address] [place] [address] Care Team Providers Care Protection Engineer Name Role Phone Aimee Heard Unavailable [phone] KOFFI VEGA Unavailable [phone] REASON FOR VISIT 2.5 MG Encounters Encounter Location Date Provider Diagnosis [facility] 119 299 [facility] 119 [place] [address] 01/23/2024 KOFFI VEGA PLAN OF TREATMENT No Information Progress Notes * Aurelia CONNORSGigiB:1970 (54 yo F)Acc No.[id number]:01/23/2024 Progress Note Patient:??Corrine CONNORS Provider:??Koffi Vega MD :1970?Age:53 Y?Sex:Fe male Date:01/23/2024 Address:[address] [place], [place] [address] Subjective: * Chief Complaints: * ?1. 2.5 MG. * Medical History:?? Objective: Assessment: Plan: * Treatment: * Procedure Codes:??21090 NO S HOW OFFICE VISIT Care Plan: * Problems:?? * Images: Billing Information: * Visit Code:?? * Procedure Codes:?? 29842 NO SHOW OFFICE VISIT. Care Plan Details* * Sign off status: Pending * Provider:??Koffi Vega MD Date:??01/22
== END 2025-03-02 07:58 | disposition home or self-care (01) ==
LOC: HO.PET 07:57
PROVIDERS: PCP Physician Assistant; Visit Provider Internal Medicine Medical Oncology
DX: Z13.89 Encounter for screening for other disorder (principal)

== ENCOUNTER 2025-03-17 08:09 | Outpatient (AMB) | payer OTHER, SELFPAY ==
--- OUTSIDE RECORDS SUMMARY | 2025-03-17 08:17 | XMS_ITS ---
Author Organization [facility] Address [address] [place] [address] Care Team Providers Care Human Resource Officer Name Role Phone Aimee Heard Unavailable [phone] ALLERGIES Allergen (clinical drug ingredient) Drug/Non Drug [...] due to excess calories (E66.01) Active confirmed 041348593 Problem Body mass index [BMI] 45.0-49.9, adult (Z68.42) Active confirmed 028668593 Problem Thyroid cyst (E04.1) Active confirmed 13844564 Problem Adrenal mass (E27.8) Active confirmed 541094480 VITAL SIGNS Blood pressure systolic 118 mm Hg 01/16/20 24 Blood pressure diastolic 78 mm Hg 024 Heart Rate 93 /min 01/16/2024 Height 56 in 01/16/2024 Weight 306 lbs 01/16/2024 BMI 68.6 kg/m2 01/16/2024 Oximetry 99 % 01/16/2024 Encounters Encounter Location Date Provider Diagnosis [facility] 119 299 [facility] 119 [place] [address] 01/16/2024 Aimee Svrcek Morbid (severe) obes ity [...] track activity level. Consider using apps like Framehawk, myfitnesspal, lose it, stick as needed for self-monitoring and weight management. Consider group exercises. Consider hiring a tangible personal property appraiser. Regular exercise is weaver to sustainable health [...] counseling and psychiatry and Dr Ruiz at [facility]. We would like to cover regular topics [...] Dictation was accomplished with the use of OpenSynergy voice recognition software, prone to medical misidentifications [...] management. Consider group exercises. Consider hiring a tangible personal property appraiser. Regular exercise is weaver to sustainable health [...] counseling and psychiatry and Dr Ruiz at [facility]. We would like to cover regular topics [...] Dictation was accomplished with the use of OpenSynergy voice recognition software, prone to medical misidentifications [...] endocrinology will be having repeat testing for Metamora's. #History of PE and DVT. Comprehensive workup [...] track activity level. Consider using apps like Framehawk, Boxpal, lose it, stick as needed for self-monitoring and weight management. Consider group exercises. Consider hiring a tangible personal property appraiser. Regular exercise is weaver to sustainable health [...] counseling and psychiatry and Dr Ruiz at [facility]. We would like to cover regular topics [...] Dictation was accomplished with the use of OpenSynergy voice recognition software, prone to medical misidentifications [...] endocrinology will be having repeat testing for Metamora's. #History of PE and DVT. Comprehensive workup [...] track activity level. Consider using apps like Framehawk, myfitVisuMotionpal, lose it, stick as needed for self-monitoring and weight management. Consider group exercises. Consider hiring a tangible personal property appraiser. Regular exercise is weaver to sustainable health [...] counseling and psychiatry and Dr Ruiz at [facility]. We would like to cover regular topics [...] Dictation was accomplished with the use of OpenSynergy voice recognition software, prone to medical misidentifications [...] endocrinology will be having repeat testing for Metamora's. #History of PE and DVT. Comprehensive workup [...] track activity level. Consider using apps like Framehawk, Boxpal, lose it, stick as needed for self-monitoring and weight management. Consider group exercises. Consider hiring a tangible personal property appraiser. Regular exercise is weaver to sustainable health [...] counseling and psychiatry and Dr Ruiz at [facility]. We would like to cover regular topics [...] Dictation was accomplished with the use of OpenSynergy voice recognition software, prone to medical misidentifications [...] endocrinology will be having repeat testing for Metamora's. #History of PE and DVT. Comprehensive workup [...] track activity level. Consider using apps like Framehawk, Boxpal, lose it, stick as needed for self-monitoring and weight management. Consider group exercises. Consider hiring a tangible personal property appraiser. Regular exercise is weaver to sustainable health [...] counseling and psychiatry and Dr Ruiz at [facility]. We would like to cover regular topics [...] Dictation was accomplished with the use of OpenSynergy voice recognition software, prone to medical misidentifications [...] Notes * Jenelle CONNORSB:1970 (53 yo F)Acc No.[id number]:01/16/2024 Patient:??Corrine CONNORS Provider:??Aimee Heard PA-C :1970?Age:53 Y?Sex:Fe male Date:01/16/2024 Address:[address] [place] [address] Subjective: * Chief Complaints: * ?1. Pt [...] is currently followed by Angie Hawley at [facility]. She also had a recent consult with Dr. Javed the instruction assistant principal at [facility]. 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 #History of PE and DVT. Comprehensive workup [...] track activity level. Consider using apps like Framehawk, myfitnesspal, lose it, stick as needed for self-monitoring and weight management. Consider group exercises. Consider hiring a tangible personal property appraiser. Regular exercise is weaver to sustainable health [...] counseling and psychiatry and Dr Ruiz at [facility]. We would like to cover regular topics [...] Dictation was accomplished with the use of OpenSynergy voice recognition software, prone to medical misidentifications [...] * Images: Billing Information: * Visit Code:?? 20197 Office Visit, New Pt., Level 4. Modifiers: [...] is currently followed by Angie Hawley at [facility]. She also had a recent consult with Dr. Javed the instruction assistant principal at [facility]. 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
--- OUTSIDE RECORDS SUMMARY | 2025-03-17 08:17 | XMS_ITS | Clinical Summary ---
Author Organization [employer] [facility] Address [address] [place] [address] [place] [address] Care Team Providers Care Jewel Sorter Name Role Phone Poc, Non Atrius Pcp [...] Associated Diagnosis Comments PAP TEST THINPREP VIAL (PSYCHIATRIC CNS) Routine 06/17/2015 7:35 PM EDT Screening for cervical cancer from Last 3 Months or Most Recently Relevant to Health Maintenance Results * PAP TEST (06/17/2015 7:35 PM EDT) PAP NILM [facility] DEPARTMENT OF PATHOLOGY AND LAB MEDICINE FINAL DX GENERAL CATEGORY: NEGATIVE FOR INTRAEPITHELIAL LESION OR MALIGNANCY. . SPECIMEN ADEQUACY: Satisfactory for evaluation. Transformation zone component present. . APPSB/APPSB [facility] DEPARTMENT OF PATHOLOGY AND LAB MEDICINE CASE # [id number] [facility] DEPARTMENT OF PATHOLOGY AND LAB MEDICINE PROCEDURE DATE 06/17/2015 [facility] DEPARTMENT OF PATHOLOGY AND LAB MEDICINE ORDERING CLINICIAN ANNE-MARIE DUNN M.D. [facility] DEPARTMENT OF PATHOLOGY AND LAB MEDICINE PATHOLOGIST BASIA DELGADO, Shop Estimator [facility] DEPARTMENT OF PATHOLOGY AND LAB MEDICINE 06/17/2015 7:35 PM EDT 06/20/2015 9:18 AM EDT Anne-Marie Dunn GENERAL LAB Final Result [facility] [address] [place] [address] [facility] DEPARTMENT OF PATHOLOGY AND LAB MEDICINE [address] [place] [address] from Last 3 Months or Most Recently Relevant to Health Maintenance Care Teams Jewel Sorter Relationship Specialty Start Date End Date Poc, Non Atrius Pcp Or PCP - General 05/11/15 Poc, Not Required Pcp Or PCP - Payer 05/11/15
--- OUTSIDE RECORDS SUMMARY | 2025-03-17 08:17 | XMS_ITS | Patient Health Record ---
Author Organization [facility] Address [address] [place] [address] Care Team Providers Care Manager Cardiology Name Role Phone Aimee Heard Unavailable [phone] ALLERGIES Allergen (clinical drug ingredient) Drug/Non Drug [...] due to excess calories (E66.01) Active confirmed 152716766 Problem Body mass index [BMI] 45.0-49.9, adult (Z68.42) Active confirmed 980344629 Problem Adrenal mass (E27.8) Active confirmed 208109011 Problem Thyroid cyst (E04.1) Active confirmed 56200125 PLAN OF TREATMENT No Information Insurance Providers Payer Name Payer Address Payer Phone Subscriber Number Group Number Insured Name Patient Relationship to Insured Coverage Start Date Coverage End Date [place] [address] [address] [place] [address] [id number] Corrine Michaels Self - patient is the [...]
--- OUTSIDE RECORDS SUMMARY | 2025-03-17 08:18 | XMS_ITS ---
Author Organization [facility] Address [address] [place] [address] Care Team Providers Care Semiconductor Manufacturing Technician Name Role Phone Aimee Heard Unavailable [phone] KOFFI VEGA Unavailable [phone] REASON FOR VISIT 2.5 MG Encounters Encounter Location Date Provider Diagnosis [facility] 119 299 [facility] 119 [place] [address] 01/23/2024 KOFFI VEGA PLAN OF TREATMENT No Information Progress Notes * Aurelia CONNORSGigiB:1970 (54 yo F)Acc No.[id number]:01/23/2024 Progress Note Patient:??Corrine CONNORS Provider:??Koffi Vega MD :1970?Age:53 Y?Sex:Fe male Date:01/23/2024 Address:[address] [place], [place] [id number] Subjective: * Chief Complaints: * ?1. 2.5 MG. * Medical History:?? Objective: Assessment: Plan: * Treatment: * Procedure Codes:??74595 NO S HOW OFFICE VISIT Care Plan: * Problems:?? * Images: Billing Information: * Visit Code:?? * Procedure Codes:?? 02536 NO SHOW OFFICE VISIT. Care Plan Details* * Sign off status: Pending * Provider:??Koffi Vega MD Date:??01/22
--- OUTSIDE RECORDS SUMMARY | 2025-03-17 08:18 | XMS_ITS | Clinical Summary ---
Author Organization [facility] Address [address] [place], [place] [id number] Phone Care Team Providers Care Promotor Group Ticket Sales Name Role Phone Val Hawley Primary Care Provider [phone] Referring, Not Required Unavailable Unavaila ble Immunizations [...] 2021 ZOSTER VACCINES (1 of 2) 2021 COVID-19 VACCINE (4 - 2023-2 5 season) [...] SEE NARRATIVE - 02/14/2024 10:00 AM EDT [address] [address] Remelter: Corrine Nguyen MD ?? PLANTING MATERIAL REMOVER Cytology Report FINAL DIAGNOSIS A. ??PAP SMEAR [...] 59, 66, 68) Note: Testing performed by [employer]clip HR-HPV analysis. ??Clinical correlation is advised. ??This HPV test was performed at [facility], [address] [place] [address]. This test has been FDA approved for both SurePath and ThinPrep cervical cytology specimens. The accuracy and precision of this test for all other specimen sources has been verified in the Cytopathology Laboratory of the [facility] and has not been cleared or approved by the U.S. Food and Drug Administration. Clinical correlation is advised. ? CLINICAL HISTORY Date of Last Menstrual Period: ??Not Provided Menstrual History: ??Post Menopausal Other Clinical Conditions: ??Screening Pap SPECIMEN SOURCE A: PAP SMEAR (SUREPATH) CE Patient Name: ??CORRINE CONNORS : ??1970 (Age: 53) Sex: ??F Institution[facility] Date of Collection: ??02/06/2024 Date of Reported: ??02/14/2024 10:00 Results to: Iza Jerez TELEGRAPH EDITOR Iza Jerez RELIGION DEPARTMENT CHAIR CYTOLOGY ORD ERABLES SEE NARRATIVE from Last 3 Months or Most Recently Relevant to Health Maintenance Care Teams Promotor Group Ticket Sales Relationship Specialty Start Date End Date Val Hawley PA [address] [place] [address] PCP - General Physician Organ Recovery Coordinator 03/26/24 Referring, Not Required 03/26/24 Additional Source Comments The information contained in this document represents components of the legal health record. It is not the complete legal health record.[facility]
--- OUTSIDE RECORDS SUMMARY | 2025-03-17 08:18 | XMS_ITS ---
Author Organization [facility] Address [address] [place] [address] Care Team Providers Care Consulting Application Engineer Name Role Phone Aimee Heard Unavailable [phone] REASON FOR VISIT with [facility] Encounters Encounter Location Date Provider Diagnosis [address] [place] [id number] 02/20/2024 Aimee Heard PLAN OF TREATMENT No Information Progress Notes * Jenelle MICHAELSB:1970 (54 yo F)Acc No.[id number]:02/20/2024 Patient:??NEDRAFUNMILAYO Corrine Provider:??Aimee Heard PA-C :1970?Age:53 Y?Sex:Fe male Date:02/20/2024 Address:[address] [place], [place] [id number] Subjective: * Chief Complaints: * ?1. with [facility]. * Medical History:?? Objective: Assessment: Plan: * Treatment: * Images: Billing Information: * Visit Code:?? * Procedure Codes:?? * Sign off status: Pending * Provider:??Aimee Heard PA-C Date:??02/09
--- NOTE | 2025-03-17 09:28 | A.OFFVIS_ITS ---
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 BMI 48.7 Allergies amoxicillin [From Augmentin] Allergy (Mild, Verified 03/17/25 09:28) Vomiting clavulanic acid [From Augmentin] Allergy (Mild, Verified 03/17/25 09:28) Vomiting nickel Allergy (Verified 03/17/25 09:28) Hives levofloxacin [From Levaquin] Adverse Reaction (Verified 03/17/25 09:28) Anaphylaxis Medication List - Last Reconciled 03/17/25 by Mazin Garcia MD apixaban (Eliquis DVT-PE Treat 30D Start) 5 mg PO BID apixaban (Eliquis) 5 mg PO BID multivitamin 1 tab PO DAILY HPI 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 Low's diet Off: 9am -12am, shiftman: 10am-5pm Breakfast: 9.30am (oat meal, cereal, Ghost protein powder 25gr) Lunch: on off days at 1pm (sandwich, cheese with crackers) Dinner: 6-8pm (chicken stew) Snacks: frequent snacking in afternoon , after dinner and at night when working (peanut butter cups, pretzels, a second meal overnight) Exercise: has a road bike Beverages: Coffee (4-5/d with creamer), tea: none, soda: rarely, juice: occasionally, ETOH: 1/mth [facility] Medical History (Updated 03/17/25 @ 09:36 by Mazin Garcia MD) Back pain Morbid obesity Pulmonary nodule 1 cm or greater in diameter DVT (deep venous thrombosis) Asthma Lupus Surgical History (Updated 03/08/25 @ 14:57 by Yokasta Valdez CMA) Hx of eye surgery Hx of cholecystectomy Hx of hysterectomy, total Family History (Updated 03/08/25 @ 14:58 by Yokasta Valdez CMA) Mother Hypothyroid Father Diabetes Social History (Updated 03/08/25 @ 14:58 by Yokasta Valdez CMA) Alcohol intake: current Alcohol intake frequency: a few times a month Patient Tobacco Use Status: Never used Tobacco service: No 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 occupational status: employed 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 Plan for lap sleeve gastrectomy. If diaphragmatic or ventral hernias are present at time of surgery, these will be repaired laparoscopically as well. I emphasized the importance of close follow-up, adherence to instructions and good communication. The surgery does not replace the need to change your lifestlyle which is the cause of the obesity problem. The surgery provides the motivation to try again to change your lifestyle, it reduces the appetite and make the transition to a better lifestyle easier and doubles the amount of weight you would lose compared to doing the lifestyle change without the surgery. You will need to be on a liquid diet with protein shakes for 2 weeks before surgery to maximize weight loss and boost your nutritional status to recover better from surgery and also for the first two weeks after surgery to let the stomach heal before we introduce other foods. After the first 2 weeks we will introduce protein bars and soft foods like scrambled eggs, cottage cheese and yogurt and after the 6th week will introduce meat, fish and cooked vegetables in small amounts. Over time you should be able to eat everything in small amounts. Side effects like nausea, vomiting, heartburn or abdominal pain are not common in the practice unless you are not following in the practice. This operation requires lifetime commitment to following in our practice and communication with me. You will much less weight and experience side effects if you don?t communicate or not following in the practice. Complications are rare and in our practice is about 1/10 of the national average. However, you can develop bleeding that may require transfusion (hasn?t happened for year in the practice), you may from complications (we did not have any deaths in the practice) and infections. Infections are usually a result of breakdown in communication or not understanding or following directions correctly. They are difficult to treat, they can happen during the first 6 weeks, they may require to be in the hospital for weeks or even months, not being able to eat by mouth and you may have drains and surgeries to try and correct the issue. Other risks and complications include possible conversion to an open procedure, leaks, small bowel obstruction, blood clots, cardiac, or pulmonary complications, as buttermaker helper complications such as ulcers, insufficient weight loss and vitamin deficiencies. 2. You will receive a link of our software mali to generate an individualized nutritional and exercise plan specific for you. Please send me a screenshot of the plans you will generate. You will need to create TWO separate meal plans, one for your days off and one for your work days that you work overnight. Meal to include lean meat (beef, fish, pork, turkey, chicken), or yi yogurt, or egg whites, or beans with a salad with olive oil and fruits (berries, pears, apples, kiwi). Avoid salt, breads, potatoes, rice, pasta, desserts. ?3. If you choose shakes, each shake would be drunk slowly, like coffee in a period of 2 hours. ?4. If you choose bars, cut each bar in 4 pieces and eat each piece in 30min ?to make each bar last 2 hours. ?5. I emphasized the importance of measuring accurately the food portion and measure it when serving the food in plate ?6. The meal portions include a specific number of forks of meat and salad. You always eat the meat portion but you can replace up to half of salad/vegetables portion with rice, potatoes or pasta, or a fruit ?if you like. The less you do it the better weight loss will be. ?7. One full-size fork is what it can be scooped on the fork without falling aside and not what can be bit with the fork. Use regular forks like those you find in a typical restaurant. ?8.? Please buy the body composition scale we discussed and send me weight measurements as soon as possible and then once a week. Always include your diet and exercise plan. 9. The best choice would be to purchase a stationary bike, elliptical or treadmill at home that can track calories. Let me know if you do so I can give you an exercise plan. 9. The best exercise choice would be to use your treadmill at home that can track calories. You can create and exercise plan with the [employer] mali. ?10.?It is important of avoiding and for at least 18 months postoperatively and has been discussed at the infosession. ?11. Goal is to lose at least 1.5-2lbs per week ?12. Goal to lose 10% of your weight before surgery, which is about 30lbs. Ultimate weight goal: 272lbs before surgery 13. Please follow the diet plan exactly without any change. If you don't like something about the plan or you feel hungry you need to communicate with me so I can help you revise the plan. You should not change the plan yourself. 14. To be scheduled for EGD to assess the stomach's anatomy. The possibility of biopsies was discussed. Patient needs to avoid use of NSAIDs and aspirin for 1 week prior to EGD. You must be on liquids only the day before your endoscopy. Risks of perforation and bleeding was discussed with the patient. This will be an outpatient procedure with IV sedation. Orders: Orders Insulin Today E66.01 - Morbid (severe) obesity due to excess calories, J45.20 - Mild intermittent asthma, uncomplicated Hemoglobin A1c Today E66.01 - Morbid (severe) obesity due to excess calories, J45.20 - Mild intermittent asthma, uncomplicated Lipid Panel Today E66.01 - Morbid (severe) obesity due to excess calories, J45.20 - Mild intermittent asthma, uncomplicated Comprehensive Met. Panel Today E66.01 - Morbid (severe) obesity due to excess calories, J45.20 - Mild intermittent asthma, uncomplicated C Reactive Protein Today E66.01 - Morbid (severe) obesity due to excess calories, J45.20 - Mild intermittent asthma, uncomplicated Vitamin A Today E66.01 - Morbid (severe) obesity due to excess calories, J45.20 - Mild intermittent asthma, uncomplicated TSH reflex Free T4 Today E66.01 - Morbid (severe) obesity due to excess calories, J45.20 - Mild intermittent asthma, uncomplicated ECG 12 lead EKG Today E66.01 - Morbid (severe) obesity due to excess calories, J45.20 - Mild intermittent asthma, uncomplicated H Pylori Breath Test Today E66.01 - Morbid (severe) obesity due to excess calories, J45.20 - Mild intermittent asthma, uncomplicated Complete Blood Count Auto Diff Today E66.01 - Morbid (severe) obesity due to excess calories, J45.20 - Mild intermittent asthma, uncomplicated IRON PROFILE Today E66.01 - Morbid (severe) obesity due to excess calories, J45.20 - Mild intermittent asthma, uncomplicated Vitamin B12 and Folate Today E66.01 - Morbid (severe) obesity due to excess calories, J45.20 - Mild intermittent asthma, uncomplicated Zinc Today E66.01 - Morbid (severe) obesity due to excess calories, J45.20 - Mild intermittent asthma, uncomplicated Vitamin B1 Today E66.01 - Morbid (severe) obesity due to excess calories, J45.20 - Mild intermittent asthma, uncomplicated Ferritin Today E66.01 - Morbid (severe) obesity due to excess calories, J45.20 - Mild intermittent asthma, uncomplicated Vitamin D 25-OH Total Today E66.01 - Morbid (severe) obesity due to excess calories, J45.20 - Mild intermittent asthma, uncomplicated US abdomen comp w elastography Today E66.01 - Morbid (severe) obesity due to excess calories, J45.20 - Mild intermittent asthma, uncomplicated XR chest 2V Today E66.01 - Morbid (severe) obesity due to excess calories, J45.20 - Mild intermittent asthma, uncomplicated FL upper GI w air Today E66.01 - Morbid (severe) obesity due to excess calories, J45.20 - Mild intermittent asthma, uncomplicated RT home sleep study Today E66.01 - Morbid (severe) obesity due to excess calories, J45.20 - Mild intermittent asthma, uncomplicated Referrals Nutrition/Dietitian Referral E66.01 - Morbid (severe) obesity due to excess calories, J45.20 - Mild intermittent asthma, uncomplicated Behavioral Health Referral E66.01 - Morbid (severe) obesity due to excess calories, J45.20 - Mild intermittent asthma, uncomplicated
[2025-03-17 09:53] VITALS: BMI 48.7
== END 2025-03-17 10:26 | disposition home or self-care (01) ==
LOC: HO.HBS 08:09
PROVIDERS: PCP Physician Assistant; Visit Provider Surgery
DX: E66.01 Morbid (severe) obesity due to excess calories (principal)
CPT/HCPCS: 99205

== ENCOUNTER → 2025-04-08 09:01 | Outpatient (REF) | payer OTHER, SELFPAY ==
--- NOTE | 2025-04-08 09:06 | CA_ITS ---
Transthoracic Echocardiogram Patient (Last, First, Middle): Corrine Michaels, Gender: Female Date of : 1970 Age: 54 Procedure Date: 04/08/2025 Procedure Type: Transthoracic Echocardiogram Location: OP Height: 167.64 cm Weight: 132.9 kg BSA: 2.35 m2 Heart Rate: bpm BP: 136 / 84 mmHg Health Records Technology Teacher: TO Referring MD: Candelario Rowan MD Materials Research Engineer: Андрей Lou MD Symptoms: I27.20 - Pulmonary hypertension, unspecified Study Quality: Technically Difficult, contrast ECG Rhythm: Sinus Conclusions: - 1. Technically limited study 2. Normal LV ejection fraction 55-60% 3. Limited visualization of cardiac valves Findings Procedure Information Contrast agent, definity, is being given per protocol without apparent complications. Left Ventricle Normal left ventricular size, thickness, and systolic function. The visually estimated ejection fraction is between 55-60%. Diastolic function is indeterminate on the basis of available data. Right Ventricle The right ventricle was not well visualized. Atria The left atrium is normal in size. Interatrial shunt cannot be excluded. The right atrium was not well visualized. Aortic Valve The aortic valve was not well visualized. There is no aortic valve stenosis. There is no aortic valve regurgitation. Mitral Valve The mitral valve was not well visualized. There is no mitral valve regurgitation. Pulmonic Valve The pulmonic valve was not well visualized. Tricuspid Valve The tricuspid valve was not well visualized. Tricuspid regurgitation envelope is inadequate for calculation of right ventricular systolic pressure. Great Vessels The aorta was not well visualized. The pulmonary artery was not well visualized. Venous The inferior vena cava was not well visualized. Pericardium/Pleural The pericardium was not well visualized. Prior Study Comparison No prior study available for comparison. Measurements 2D Linear Measurements IVSd: 0.94 0.6-0.9/0.6-1.0 cm LVIDd: 5.13 3.9-5.3/4.2-5.9 cm LVIDd Index: 2.18 2.4-3.2/2.2-3.1 cm/m2 LVIDs: 3.28 2.0-3.6 cm LVPWd: 0.92 0.7-1.1 cm LA Diam: 3.60 2.7-3.8/3.0-4.0 cm LAIDs Index: 1.53 1.5-2.3 cm/m2 LV Mass: 215.09 67-162/88-224 g LV Mass Index: 91.53 43-95/49-115 g/m2 LVOT Diam: 2.00 3.0+(-)1.3 cm 2D Systolic Function EF 4C: 58.20 >55% EF 2C: 58.00 >55% EF BiP: 58.20 >55% Mitral Valve MV Pk E: 0.60 MV PK A: 0.37 MV Decel Time: 185.00 E/A: 1.60 E'Lateral: 7.51 E'Medial: 7.29 E/E' Med: 8.20 E/E' Lat: 8.00 PHT: 54.00 MVA PHT: 4.07 Decel [place]: 3.24 Aortic Valve AoV Pk Sal: 1.36 AoV Mn Sal: 0.92 AoV VTI: 0.30 AoV Pk Grad: 7.00 Aov Mn Grad: 4.00 DILSHAD Cont.VTI: 2.02 LVOT LVOT Pk Sal: 0.88 LVOT Mn Sal: 0.54 LVOT VTI: 0.19 LVOT Pk Grad: 3.00 LVOT Mn Grad: 1.00 LVOT Diam: 2.00 LVOT Area: 3.14 Diastolic Function MV Pk E: 0.60 MV Pk A: 0.37 E/A: 1.60 E'Medial: 7.29 E/E' Med: 8.20 E' Laterial: 7.51 E/E' Lat: 8.00 Right Ventricle TAPSE (mm): 23.60 TVS' Sal: 14.40 Tricuspid Valve RA Press: 3.00 Great Vessels Aorta Sinus of Valsalva: 3.18 2.0-3.5 cm Ao Asc: 2.70 2.1-3.4 cm Updated in Other Vendor System with Status of Final Андрей Lou MD electronically signed on 04/08/2025 2:41:57 PM with status of Final
--- NOTE | 2025-04-08 09:06 | ECG_ITS ---
Test Reason : E66.9 Blood Pressure : */* mmHG Vent. Rate : 76 BPM Atrial Rate : 76 BPM P-R Int : 170 ms QRS Dur : 88 ms QT Int : 412 ms P-R-T Axes : 50 20 38 degrees QTcB Int : 463 ms Normal sinus rhythm Nonspecific T wave abnormality Abnormal ECG When compared with ECG of 24-Jan-2025 11:09, No significant change was found Referred By: Mazin Garcia Electronically Signed By: RICHARD GALVEZ MD
--- OUTSIDE RECORDS SUMMARY | 2025-04-08 09:23 | XMS_ITS | Patient Health Record ---
Author Organization [facility] Address [address] [place] [address] Care Team Providers Care Human Resource Internship Name Role Phone Aimee Heard Unavailable [phone] Allergies Allergen (clinical drug ingredient) Drug/Non Drug Allergy documented on EMR Reaction Allergy Type Onset Date Status Levaquin anaphylaxis Drug Allergy Activ e Reason For Referral No Information Medications Medication SIG (Take, Route, Fr equency, Duration) Notes Start Date End Date Status Ondansetron HCl 4 MG 1 tablet Orally Once a day for 20 days As needed for nausea 01/16/2024 Active Multivitamin - 1 tablet Orally Once a day Active Mounjaro 2.5 MG/0.5ML as directed Subcut aneous once weekly for 30 days 01/16/2024 Active Social History Tobacco Use: Social History Observation Description Date Details (start date - stop date) Never Smoker NA - NA Tobacco Use/Smoking Question Answer Notes Are you a nonsmoker Alcohol Screen (Audit-C) Question Answer Notes Did you have a drink contain ing alcohol in the past year? Yes How often did you have a dri nk containing alcohol in the past year? 2 to 3 times a week (3 points) Points 3 Interpretation Positive Problems Problem Type SNOMED Code ICD Code Onset Dates Problem Status W/U Status Risk Notes Problem 036866763 Morbid (severe) obesity due to excess calories (E66.01) Active confirmed Problem 716912839 Body mass index [BMI] 45.0-49.9, adult (Z68.42) Active confirmed Problem 166867665 Adrenal mass (E27.8) Active confirmed Problem 19197102 Thyroid cyst (E04.1) Active confirmed Plan Of Treatment No Information Insurance Providers Payer Name Payer Address Payer Phone Subscriber Number Group Number Insured Name Patient Relationship to Insured Coverage Start Date Coverage End Date [place] [address] [address] [place] [address] [id number] Corrine Michaels Self - patient is the insured 3 Medications Administered Medication Instructions Date of Administration Dosage Notes Tirzepatide 01/16/2024 2.5 mg Medical (General) History Medical History History ICD Code weight gain/loss hemorrhoids blood clots Surgical History Surgery Date(Month/Year) cholecystectomy cyst removal oopherectomy Hospitalization History Reason Date(Month/Year) bilateral submental pulmonary emboliswit h right sided heart failure 05/2022
== END ==
LOC: HO.CARD 09:01
PROVIDERS: PCP Physician Assistant; Visit Provider Hospitalist
DX: I27.20 Pulmonary hypertension, unspecified (principal); I26.99 Other pulmonary embolism without acute cor pulmonale; E66.01 Morbid (severe) obesity due to excess calories; J45.20 Mild intermittent asthma, uncomplicated
CPT/HCPCS: 93005; 93306; Q9957

== ENCOUNTER → 2025-04-08 09:06 | Outpatient (BNV) | payer OTHER, SELFPAY | PROVIDERS: PCP Physician Assistant; Visit Provider Internal Medicine Cardiovascular Disease | DX: I27.20 Pulmonary hypertension, unspecified (principal) | CPT/HCPCS: 93306 ==

== ENCOUNTER → 2025-04-09 09:11 | Outpatient (AMB) | payer OTHER, SELFPAY ==
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
--- OUTSIDE RECORDS SUMMARY | 2025-04-09 09:21 | XMS_ITS | Patient Health Record ---
Author Organization [facility] [address] Address [address] [place] [address] Care Team Providers Care Secretary Board Of Commissioners Name Role Phone Aimee Heard Unavailable [phone] Allergies Allergen (clinical drug ingredient) Drug/Non Drug [...] Problem Status W/U Status Risk Notes Problem 603101551 Morbid (severe) obesity due to excess calories (E66.01) Active confirmed Problem 249184937 Body mass index [BMI] 45.0-49.9, adult (Z68.42) Active confirmed Problem 163544583 Adrenal mass (E27.8) Active confirmed Problem 70768252 Thyroid cyst (E04.1) Active confirmed Plan Of Treatment No Information Insurance Providers Payer Name Payer Address Payer Phone Subscriber Number Group Number Insured Name Patient Relationship to Insured Coverage Start Date Coverage End Date Blue Benefits [place] [address] [address] [place] [address] [id number] Corrine Michaels Self - patient is the [...]
== END ==
LOC: HO.HBST 09:11
PROVIDERS: PCP Physician Assistant; Visit Provider Counselor Mental Health
DX: F43.20 Adjustment disorder, unspecified (principal); Z71.89 Other specified counseling
CPT/HCPCS: 90791

== ENCOUNTER 2025-04-13 08:27 | Outpatient (REF) | payer OTHER, SELFPAY ==
--- NOTE | ~2025-04-13 | US_ITS ---
EXAMINATION: US TRIPLEX LOWER EXTREMITY, RIGHT CLINICAL INFORMATION: Follow-up chronic deep venous thrombosis in the right leg, Venaseal right greater saphenous vein 11/20/2024 COMPARISON: January 24, 2025 TECHNIQUE: Color-flow triplex imaging with spectral analysis and compression Doppler were performed on the right lower extremity. FINDINGS: Respiratory variation of the venous waveform is present in the bilateral common femoral veins. There is nonocclusive low attenuation material in the central and peripheral mid and distal superficial femoral vein and popliteal vein with decreased flow, most pronounced in the distal superficial femoral vein. Other deep and superficial veins are patent with flow and compressible demonstrating venous waveforms. US/US venous duplex LE RT IMPRESSION: Nonocclusive suspected chronic thrombosis in the mid and distal superficial femoral vein and popliteal vein of the right lower extremity. Electronically signed by: Dion Umaña MD 04/13/2025 11:04 AM EDT
--- OUTSIDE RECORDS SUMMARY | 2025-04-13 08:44 | XMS_ITS | Patient Health Record ---
Author Organization [facility] Address [address] [place] [address] Care Team Providers Care Process Engineer Name Role Phone Aimee Heard Unavailable [phone] Allergies Allergen (clinical drug ingredient) Drug/Non Drug [...] Problem Status W/U Status Risk Notes Problem 373175298 Morbid (severe) obesity due to excess calories (E66.01) Active confirmed Problem 435751046 Body mass index [BMI] 45.0-49.9, adult (Z68.42) Active confirmed Problem 365960401 Adrenal mass (E27.8) Active confirmed Problem 63254946 Thyroid cyst (E04.1) Active confirmed Plan Of Treatment No Information Insurance Providers Payer Name Payer Address Payer Phone Subscriber Number Group Number Insured Name Patient Relationship to Insured Coverage Start Date Coverage End Date Blue Benefits Admin [address] [address] [place] [address] [id number] Corrine Michaels Self - patient is the [...]
== END 2025-04-13 08:28 | disposition home or self-care (01) ==
LOC: HO.US 08:27
PROVIDERS: PCP Physician Assistant; Visit Provider Hospitalist
DX: I83.11 Varicose veins of right lower extremity with inflammation (principal)
CPT/HCPCS: 93971

== ENCOUNTER → 2025-04-13 08:28 | Outpatient (BNV) | payer OTHER, SELFPAY | PROVIDERS: PCP Physician Assistant; Visit Provider Radiology Diagnostic Radiology | DX: I82.501 Chronic embolism and thrombosis of unspecified deep veins of right lower extremity (principal) | CPT/HCPCS: 93971 ==

== ENCOUNTER 2025-05-07 08:35 | Outpatient (REF) | payer OTHER, SELFPAY ==
--- NOTE | ~2025-05-07 | XR_ITS ---
EXAMINATION: XR CHEST CLINICAL INFORMATION: E66.01 - Morbid (severe) obesity due to excess calories COMPARISON: Correlated to CT angiogram chest dated January 24, 2025. TECHNIQUE: 2 views of the chest were obtained. FINDINGS: No hyperinflation. No consolidation pleural effusion or pneumothorax. Cardiomediastinal silhouette size is normal. Multilevel thoracolumbar spondylosis, mild. Mild degenerative changes in the acromioclavicular joints. XR/XR chest 2V IMPRESSION: No acute airspace disease. Spondylosis. Electronically signed by: Angelito Gu MD 05/07/2025 09:54 AM EDT
--- OUTSIDE RECORDS SUMMARY | 2025-05-07 08:44 | XMS_ITS | Patient Health Record ---
Author Organization [facility] Address [address] [place] [address] Care Team Providers Care Catalyst Impregnator Name Role Phone Aimee Heard Unavailable [phone] Allergies Allergen (clinical drug ingredient) Drug/Non Drug Allergy documented on EMR Reaction Allergy Type Onset Date Status Levaquin anaphylaxis Drug Allergy Activ e Reason For Referral No Information Medications Medication SIG (Take, Route, Fr equency, Duration) Notes Start Date End Date Status Ondansetron HCl 4 MG 1 tablet Orally Once a day; Duration: 20 days As needed for nausea 01/16/2024 Active Multivitamin - 1 tablet Orally Once a day Active Mounjaro 2.5 MG/0.5ML as directed Subcut aneous once weekly; Duration: 30 days 01/16/2024 Active Social History Tobacco [...] Problem Status W/U Status Risk Notes Problem Morbid obesity (disorder) (609893831) Morbid (severe) obesity due to excess calories (E66.01) Active confirmed Problem Body mass index 40+ - severely obese (710482182) Body mass index [BMI] 45.0-49.9, adult (Z68.42) Active confirmed Problem Adrenal mass (634424263) Adrenal mass (E27.8) Active confirmed Problem Cyst of thyroid (32951112) Thyroid cyst (E04.1) Active confirmed Plan Of Treatment No Information Insurance Providers Payer Name Payer Address Payer Phone Subscriber Number Group Number Insured Name Patient Relationship to Insured Coverage Start Date Coverage End Date Blue Benefits [place] [address] [address] [place] [id number] Corrine Michaels Self - patient is the [...]
[2025-05-07 09:47] LABS: Basophils Percent Auto 0.6 % (0-2); Eosinophils Absolute Auto 0.2 X10*3/uL (0.0-0.4); Hemoglobin 15.2 g/dl (12.0-16.0); Imm Gran Abs Auto 0.01 X10*3/uL (0.00-0.03); Imm Gran Pct Auto 0.2 % (0.0-0.4); Lymphocytes Absolute Auto 1.8 X10*3/uL (1.2-4.9); Lymphocytes Percent Auto 34.2 % (20-40); MANUAL DIFF FLAG SCAN; Mean Corpuscular Hemoglobin 28.6 pg (27.0-33.0); Mean Corpuscular Volume 86.5 fL (80.0-98.0); Monocytes Absolute Auto 0.5 X10*3/uL (0.1-1.2); Monocytes Percent Auto 8.9 % (2-11); Neutrophils Absolute Auto 2.8 x10*3/uL (2.0-8.3); Neutrophils Percent Auto 53.1 % (45-73); PLT CLUMP 1; Red Blood Count 5.32 X10*6/uL (4.20-5.50); Red Cell Distribution Width 13.4 % (11.0-16.0); SCAN SMEAR FLAG 1
[2025-05-07 09:50] LABS: White Blood Count 5.3 X10*3/uL (4.8-10.8)
[2025-05-07 09:59] LABS: Estimated Average Glucose 94 mg/dL; Hemoglobin A1c % 4.9 % (<6.0)
[2025-05-07 10:45] LABS: Mean Platelet Volume 10.6 fL (9.4-12.3); Platelet Count 138 X10*3/uL (160-400)
[2025-05-07 10:46] LABS: SLIDE REVIEW VERIFIED
[2025-05-07 11:03] LABS: Alanine Aminotransferase 52 U/L (0-31); Albumin Level 4.5 g/dL (3.5-5.0); Alkaline Phosphatase 89 U/L (39-117); Anion Gap 17 (12-20); Aspartate Amino Transferase 40 U/L (5-31); Bilirubin Total 0.9 mg/dL (0.0-1.0); Blood Urea Nitrogen 14 mg/dL (9-16); C Reactive Protein 1.98 mg/dL (< or = 0.50); Calcium 10.1 mg/dL (8.4-10.2); Carbon Dioxide 22 mmol/L (22-29); Chloride 105 mmol/L (96-108); Cholesterol 184 mg/dL (<200); Estimated Glomerular Filt Rate > 60; Glucose Random 83 mg/dL (60-115); HDL Cholesterol 46 mg/dL (>40); Iron 77 mcg/dL (30-160); LDL Cholesterol Calculated 122 mg/dL (<100); Percent Iron Saturation 33 % (15-50); Potassium 4.3 mmol/L (3.3-5.1); Sodium 140 mmol/L (135-145); Total Iron Binding Capacity 234 mcg/dL (228-428); Total Protein 8.3 g/dL (6.5-8.0); Triglycerides 82 mg/dL (<150); Unsaturated Iron Binding 157 ug/dL
[2025-05-07 11:10] LABS: Ferritin 129 ng/mL (10-250); Insulin 6 uU/mL (2-29); TSH reflex Free T4 1.53 uIU/mL (0.32-4.0)
[2025-05-07 11:22] LABS: Folate 14.9 ng/mL (> or = 4.0); Vitamin B12 733 pg/mL (200-900)
[2025-05-11 18:39] LABS: Vitamin A 45 mcg/dL (38-98)
[2025-05-12 16:08] LABS: Vitamin B1 <6 nmol/L (8-30)
== END 2025-05-07 08:36 | disposition home or self-care (01) ==
LOC: HO.XRAY 08:35
PROVIDERS: Visit Provider Surgery
DX: E66.01 Morbid (severe) obesity due to excess calories (principal); J45.20 Mild intermittent asthma, uncomplicated; Z13.1 Encounter for screening for diabetes mellitus
CPT/HCPCS: 36415; 71046; 80053; 80061; 82306; 82607; 82728; 82746; 83036; 83525; 83540; 84425; 84443; 84590; 84630; 85025; 86140

== ENCOUNTER → 2025-05-07 09:37 | Outpatient (BNV) | payer OTHER, SELFPAY | PROVIDERS: Visit Provider Radiology Diagnostic Radiology | DX: M47.815 Spondylosis without myelopathy or radiculopathy, thoracolumbar region (principal) | CPT/HCPCS: 71046 ==

== ENCOUNTER → 2025-05-12 08:24 | Outpatient (REF) | payer OTHER, SELFPAY ==
--- OUTSIDE RECORDS SUMMARY | 2025-05-12 08:26 | XMS_ITS | Patient Health Record ---
Author Organization [facility] [address] Address [address] [place] [address] Care Team Providers Care Ophthalmic Aide Name Role Phone Aimee Heard Unavailable [phone] Allergies Allergen (clinical drug ingredient) Drug/Non Drug [...] Status W/U Status Risk Notes Problem Morbid (severe) obesity due to excess calories (E66.01) Active confirmed Problem Body mass index 40+ - severely obese (206714338) Body mass index [BMI] 45.0-49.9, adult (Z68.42) Active confirmed Problem Adrenal mass (759232212) Adrenal mass (E27.8) Active confirmed Problem Cyst of thyroid (53644199) Thyroid cyst (E04.1) Active confirmed Plan Of Treatment No Information Insurance Providers Payer Name Payer Address Payer Phone Subscriber Number Group Number Insured Name Patient Relationship to Insured Coverage Start Date Coverage End Date Blue Benefits Admin [address] [address] [place] [id number] [phone] [id number] Corrine Michaels Self - patient is the [...]
--- OUTSIDE RECORDS SUMMARY | 2025-05-12 08:26 | XMS_ITS | Clinical Summary ---
Author Organization [facility] Address [address] [place] [address] Care Team Providers Care Manager Training And Development Name Role Phone Amee De La Cruz [facility] Primary Care Provider Source Comments PLEASE [...] tabIndications:D VT, lower extremity, distal, acute, right (CMS & HHS-HCC),Bilater al pulmonary embolism ([facility]) Take 1 Tablet by mouth once daily 90 Tablet 1 12/18/2022 Active traZODone (DESYREL) 50 mg tabletIndication s:Sleep disturbance Take 0.5-1 Tablets by mouth nightly at bedtime as needed for sleep 30 Tablet 01/15/2023 Active Active Problems Problem Noted Date Diagnosed Date Systemic lupus erythematosus , unspecified SLE type, unspecified organ involvement status ([facility] & HHS-HCC) 09/10/2022 Bilateral pulmonary embolism ([facility]) Overview (09/10/2022): Dx April 2022, had a prior dvt nov 2021 Will likely need lifelong anticoagulation xarelto 20mg daily DVT, lower extremity, distal, acute, right (CMS & HHS-HCC) 12/01/2021 Immunizations Immunization Administration Dates Next Due PNEUMOCOCCAL CONJUGATE PCV 13 03/30/2019 PNEUMOCOCCAL POLYSACCHARIDE PPV23 (Pneumovax 23) 05/27/2019 Family History Medical History Relation Name [...] 86 05/24/2022 4:53 PM EDT Temperature 36.4 C (97.6 F) 06/24/2019 9:18 AM EDT Respiratory Rate 18 05/24/2022 4:53 PM EDT [...] 03/30/2022 03/30/2019, 03/30/2019 Hypertension Screening (#1) 05/24/2023 Imm-Pneumococcal 50+ (3 of 3 - PCV20 or PCV21) 05/27/2024 05/27/2019, 03/30/2019 Jur-SOEDP-31 ( season) 2024 11/01/2021, 11/28/2020, 11/07/2020 Alcohol and Drug Screen 11/11/2024 09/10/2022 Depression Annual Screen 11/11/2024 12/01/2021 Imm-Influenza (Season Ended) 2025, 08/16/2021, 08/19/2020, Additional history exists Colonoscopy 07/24/2029 07/24/2019 Colorectal Cancer Screening 07/24/2029 [...] Health Maintenance Results * COLONOSCOPY (07/24/2019) 07/24/2019 Leyla Sinha - 07/24/2019 10:20 AM EDT Colonoscopy Results: [...] confidentiality may be protected by state law. If your state requires such protection, then the state law prohibits you from making any further disclosure of the information without the specific written consent of the person to whom it pertains, or as otherwise permitted by law. A general authorization for the release of medical or other information is NOT sufficient for this purpose. For additional information please refer to http://education.YES.TAP.Personaling/faq/SAY669 (This link is being provided for informational/ educational purposes only.) The performance of this assay has not been clinically validated in patients less than 2 years old. 03/30/2019 2:36 PM EDT [facility] Provider Default LAB - BLOOD DRAW [...] 04/01/2019 3:42 PM EDT DATA CONVERSION Comment: Fasting reference interval SODIUM 142 135 - [...] Recently Relevant to Health Maintenance Insurance [employer] Care Teams Manager Training And Development Relationship Specialty Start Date End Date Amee De La Cruz FNP [address] [place] [address] PCP - General 11/13/23
--- NOTE | 2025-05-12 08:28 | CA_ITS ---
Acquisition Time: 2025-05-12 09:16:46 Total Exercise Time: 00:05:15 Test Indications: ABN EKG Medications: ELIQUIS Protocol: JYOTSNA Max HR: 155 BPM 92% of Pred: 167 BPM Max BP: 144/90 mmHG Max Work Load: 7.0 METS Exercise stress test with exercise 5 mins 15 secs of Jyotsna Protocol, achieving 92% MPHR, with reports of SOB, no chest pain, without any arrythmias, with normotensive response to exercise. Without any EKG changes meeting criteria for ischemia. In recovery, breathing returned to baseline. Echo images obtained by tech at rest and post peak exercise. Definity contrast utilized. Test reviewed with Dr. Lou. Referred By: Mazin Garcia Electronically Signed By: Simone Tran
== END ==
LOC: HO.CARD 08:24
PROVIDERS: PCP Physician Assistant; Visit Provider Surgery
DX: R94.31 Abnormal electrocardiogram [ECG] [EKG] (principal)
CPT/HCPCS: 93350; Q9957

== ENCOUNTER → 2025-05-12 08:28 | Outpatient (BNV) | payer OTHER, SELFPAY | PROVIDERS: PCP Physician Assistant | DX: R94.31 Abnormal electrocardiogram [ECG] [EKG] (principal); R06.02 Shortness of breath | CPT/HCPCS: 93016; 93018; 93350; 93352 ==

== ENCOUNTER 2025-05-13 09:21 | Day surgery (SDC) | payer OTHER, SELFPAY ==
--- OUTSIDE RECORDS SUMMARY | 2025-05-03 16:44 | XMS_ITS | Patient Health Record ---
Author Organization [facility] Address [address] [place] [address] Care Team Providers Care Car Framer Name Role Phone Aimee Heard Unavailable [phone] Allergies Allergen (clinical drug ingredient) Drug/Non Drug [...] Problem Status W/U Status Risk Notes Problem 140704451 Morbid (severe) obesity due to excess calories (E66.01) Active confirmed Problem 838307685 Body mass index [BMI] 45.0-49.9, adult (Z68.42) Active confirmed Problem 978770455 Adrenal mass (E27.8) Active confirmed Problem 58487393 Thyroid cyst (E04.1) Active confirmed Plan Of Treatment No Information Insurance Providers Payer Name Payer Address Payer Phone Subscriber Number Group Number Insured Name Patient Relationship to Insured Coverage Start Date Coverage End Date Blue Benefits [place] [address] [address] [place] [address] [id number] Corrine Michaels Self - patient is the [...]
[2025-05-11 10:52] VITALS: BMI 48.7
[2025-05-13 09:31] VITALS: BMI 45.0
[2025-05-13 09:39] VITALS: BP 125/82; PULSE 82; RESP 16; TEMP 36.3; O2SAT 96
[2025-05-13] MEDS: Lactated Ringers 1,000 ML 80 ML IVCONT (10:22)
--- NOTE | 2025-05-13 11:20 | PM.OP ---
Brief Operative Note Date of Service: 05/13/25 Pre-op diagnosis: Morbid obesity Post-op diagnosis: same Procedure: PROCEDURE DATE: 05/13/2025 PREOPERATIVE DIAGNOSIS: Morbid obesity POSTOPERATIVE DIAGNOSIS: ?Same as above. Normal endoscopy PROCEDURE: Wivzetnv-iyoswi-jnlndinnicei with biopsies Surgeon: Olivia Garcia M.D.. Ph.D. Aged Or Disabled Care Worker: None ? Anesthesia: IV sedation Estimated blood loss: ?Minimal FINDINGS AND PROCEDURE: ? OPERATIVE INDICATIONS: ?The patient is a 54 year old female known to me who is interested in bariatric surgery. Based on this information I recommended an upper endoscopy to evaluate the patient's symptoms. Risks and complications of the surgery were discussed with the patient in advance particularly the possibility of perforation or bleeding that may require surgical intervention. The patient understood the risks and was in agreement with the plan. ? PROCEDURE: After informed consent was obtained by the patient, the patient was ?transferred to the Operating Room and was placed in the supine position.? After successful induction of IV sedation, a mouth block was inserted and the patient was placed in the left lateral decubitus position. An upper endoscopy was performed next, the oropharynx and esophagus appeared within the normal limits. There was no hiatal hernia. The z-line was smooth. Two biopsies were obtained from the distal esophagus 2-3 cm proximal to the GE junction and two additional biopsies from the GE junction. The stomach was entered and it appeared to be of normal size. There was no gastritis. There was no stricture or ulcer. A biopsy was obtained from the gastric fundus and the antrum. No significant bleeding was noted from any of the biopsy sites. Retroflexion of the scope confirmed a normal GE junction. The scope was then advanced into the duodenum which appeared to be normal as well. At that point the duodenum ?and the stomach were decompressed and the scope was withdrawn from the patient's mouth. The patient extubated and was transferred in stable condition to the Recovery Room for further care. I was present and performed all steps of the procedure. There were no residents to assist with this case. Scott Garcia M.D., Ph.D. Surgeon: Mazin Garcia MD Anesthesia: MAC Was an Aged Or Disabled Care Worker used for this Procedure?: No Estimated blood loss (mL): 0 IV fluids (mL): 400 Urine output (mL): 0 (No Scott to record output) Pathology: other (1) antrum x1, 2) fundus x1, 3) GE junction x2, 4) distal esophagus x2) Condition: stable Disposition: PACU
--- NOTE | 2025-05-13 11:21 | MHC.SHP ---
Pre-Procedural Eval Section A - 24 Hr Update-Section A only Date of Service: 05/13/25 The patient is an INPATIENT: No The patient has been examined within 24 hours of the surgical procedure. The History & Physical has been completed within 30 days and I have reviewed it.: Yes Section B - Complete if H&P > 30 days Chief Complaint: Morbid (severe) obesity due to excess calories Relevant Family History (Specify if Yes): No Relevant Social History: None Present Medications: None Medical History: No relevant PMH History of Previous Operations: No relevant previous surgery Allergies: Allergies Allergy/AdvReac Type Severity Reaction Status Date / Time amoxicillin (From Augmentin) Allergy Mild Vomiting Verified 03/17/25 09:28 clavulanic acid (From Allergy Mild Vomiting Verified 03/17/25 09:28 Augmentin) nickel Allergy Hives Verified 03/17/25 09:28 levofloxacin (From Levaquin) AdvReac Anaphylaxis Verified 03/17/25 09:28 Review of Systems Sugical H&P ROS: Negative: Constitution, Cardiovascular, Respiratory, Neurological, Psychiatric, Hem-Onc, Allergic/Immunologic, Gastrointestinal, Genitourinary, Musculoskeletal, Integumentary, Endocrine and Eyes/Ears/Nose/Throat Exam Surgical H&P Exam: Normal: HEENT, Normal: Heart, Normal: Lungs, Normal: Extremities, Normal: Abdomen, Normal: Skin and Normal: Neurological Plan Diagnosis/Plan: Unchanged (EGD to assess the stomach's anatomy. Risks of bleeding and perforation were discussed with the patient and she is in agreement with the plan.) I have reviewed the history and physical and performed a pertinent physical examination on my patient. No changes have occurred unless specified. Time Spent With Patient Time: Total time managing care of this patient today ____ minutes.
--- NOTE | 2025-05-13 11:23 | P.CONAN_ITS ---
Documented by User: Bisi Escalona NP 05/11/25 13:00 HPI - Anesthesia Eval Consult details Narrative: 54yo F for Upper Endoscopy DVT/Lupus - eliquis - arixtra bridge BMI 48 PMFSH Active Problems Active Problems: All Active Problems Abnormal EKG (Acute) Back pain (Acute) Morbid obesity (Acute) Asthma (Acute) Pulmonary nodule 1 cm or greater in diameter (Acute) DVT (deep venous thrombosis) (Acute) Pulmonary embolism (Acute) Lymphedema (Acute) Varicose veins of right lower extremity with inflammation (Acute) Past Medical History Medical History (Updated 03/26/25 @ 22:35 by Mazin Garcia MD) Back pain Morbid obesity Pulmonary nodule 1 cm or greater in diameter DVT (deep venous thrombosis) Asthma Lupus Family History Family History (Updated 03/08/25 @ 14:58 by Yokasta Valdez CMA) Mother Hypothyroid Father Diabetes Surgical History Surgical History (Updated 03/08/25 @ 14:57 by Yokasta Valdez CMA) Hx of eye surgery Hx of cholecystectomy Hx of hysterectomy, total Social History Social History (Updated 03/08/25 @ 14:58 by Yokasta Valdez CMA) Alcohol intake: current Alcohol intake frequency: former alcohol drinker Patient Tobacco Use Status: Never used Tobacco Use of substances other than those prescribed or required for medical reasons: No Are you DNR?: No Advance Directives: No Advance Directives Information Provided: Yes Advance Directives on File: No Patient : No : No Poor oral hygiene: No service: No Current occupational status: employed Meds Allergies Allergy/AdvReac Type Severity Reaction Status Date / Time amoxicillin (From Augmentin) Allergy Mild Vomiting Verified 03/17/25 09:28 clavulanic acid (From Allergy Mild Vomiting Verified 03/17/25 09:28 Augmentin) nickel Allergy Hives Verified 03/17/25 09:28 levofloxacin (From Levaquin) AdvReac Anaphylaxis Verified 03/17/25 09:28 Home Medications ?Medication ?Instructions ?Recorded ?Confirmed ?Last Taken ?Type multivitamin 1 tab PO DAILY 03/08/25 07/0 02/0205/12/25 History Exam Height,Weight and Vital Signs: Height 5 ft 6 in Weight 136.985 kg Assessment and Plan Assessment Anesthesia Assessment: Chart Reviewed Documented by User: Celina Christian DO 05/13/25 11:24 PMFSH Past Medical History Medical History (Updated 03/26/25 @ 22:35 by Mazin Gracia MD) Back pain Morbid obesity Pulmonary nodule 1 cm or greater in diameter DVT (deep venous thrombosis) Asthma Lupus Family History Family History (Updated 03/08/25 @ 14:58 by Yokasta Valdez CMA) Mother Hypothyroid Father Diabetes Family history of problems with anesthesia: No Surgical History Surgical History (Updated 03/08/25 @ 14:57 by Yokasta Valdez CMA) Hx of eye surgery Hx of cholecystectomy Hx of hysterectomy, total History of Problems with Anesthesia: No Social History Social History (Updated 03/08/25 @ 14:58 by Yokasta Valdez CMA) Alcohol intake: current Alcohol intake frequency: former alcohol drinker Patient Tobacco Use Status: Never used Tobacco Use of substances other than those prescribed or required for medical reasons: No Are you DNR?: No Advance Directives: No Advance Directives Information Provided: Yes Advance Directives on File: No Patient : No : No Poor oral hygiene: No service: No Current occupational status: employed Meds Allergies Allergy/AdvReac Type Severity Reaction Status Date / Time amoxicillin (From Augmentin) Allergy Mild Vomiting Verified 03/17/25 09:28 clavulanic acid (From Allergy Mild Vomiting Verified 03/17/25 09:28 Augmentin) nickel Allergy Hives Verified 03/17/25 09:28 levofloxacin (From Levaquin) AdvReac Anaphylaxis Verified 03/17/25 09:28 Home Medications ?Medication ?Instructions ?Recorded ?Confirmed ?Last Taken ?Type multivitamin 1 tab PO DAILY 03/08/25 07/0 02/0205/12/25 History Exam Exam Date and Time: 05/13/25 1120 Height,Weight and Vital Signs: Height 5 ft 6 in Weight 136.985 kg Vital Signs Temperature 97.3 F 05/13/25 09:39 Pulse Rate 82 05/13/25 09:39 Respiratory Rate 16 05/13/25 09:39 Blood Pressure 125/82 05/13/25 09:39 Pulse Oximetry 96 05/13/25 09:39 Oxygen Delivery Method Room Air 05/13/25 09:39 Temperature 97.3 F 05/13/25 09:39 Pulse Rate 82 05/13/25 09:39 Respiratory Rate 16 05/13/25 09:39 Blood Pressure 125/82 05/13/25 09:39 Pulse Oximetry 96 05/13/25 09:39 Oxygen Delivery Method Room Air 05/13/25 09:39 Airway Mallampati Class: II TM Dist: >3cm Neck ROM: Full Partial: Upper Loose/Missing/Broken Teeth: Yes (loose molar left upper jaw) Heart: S1S2 Lungs: CTAB Assessment and Plan Assessment Anesthesia Assessment: Anesthesia Plan Discussed and Chart Reviewed Final Anesthetic Review Family History of Problems with Anesthesia: No History of Problems with Anesthesia: No NPO: Yes ASA Class: III Final Preanesthetic Review: No Changes in Pt Med Stat, Meds/Allgs Chart Reviewed, Consent Obtained/Reviewed and Anes Risks/Benef Reviewed Patient Risk: Intermediate Procedure Risk: Low Anesthetic Plan Anesthetic Plan: MAC: and Agree w/ Assess. and Plan Disposition: Standard PACU
[2025-05-13 11:47] VITALS: BP 99/56; PULSE 61; RESP 16; TEMP 36.2; O2SAT 98
[2025-05-13 12:02] VITALS: BP 107/67; PULSE 69; RESP 18; O2SAT 94
[2025-05-13 12:14] VITALS: BP 112/71; PULSE 72; RESP 18; O2SAT 96
[2025-05-13 12:25] VITALS: BP 112/56; PULSE 64; RESP 20; TEMP 36.2; O2SAT 96
== END 2025-05-13 13:09 | disposition home or self-care (01) ==
PROVIDERS: PCP Physician Assistant; Visit Provider Surgery
PROC: 0DJ08ZZ Inspection of Upper Intestinal Tract, Via Natural or Artificial Opening Endoscopic (ICD-10-PCS; CPT 43235; principal; 2025-05-13 12:20)
DX: E66.01 Morbid (severe) obesity due to excess calories (principal); Z68.42 Body mass index [BMI] 45.0-49.9, adult; J45.909 Unspecified asthma, uncomplicated; R91.1 Solitary pulmonary nodule; M32.9 Systemic lupus erythematosus, unspecified; Z88.1 Allergy status to other antibiotic agents; Z79.01 Long term (current) use of anticoagulants; Z90.49 Acquired absence of other specified parts of digestive tract
CPT/HCPCS: 43239; 88305; 88342; J2003; J2704

== ENCOUNTER → 2025-05-13 09:21 | Outpatient (BNV) | payer OTHER, SELFPAY | PROVIDERS: PCP Physician Assistant; Visit Provider Surgery | DX: E66.01 Morbid (severe) obesity due to excess calories (principal); Z68.42 Body mass index [BMI] 45.0-49.9, adult | CPT/HCPCS: 43239 ==

== ENCOUNTER 2025-05-20 08:16 | Outpatient (REF) | payer OTHER, SELFPAY ==
--- NOTE | ~2025-05-20 | FL_ITS ---
EXAMINATION: XR FLUOROSCOPY UPPER GI SERIES CLINICAL INFORMATION: Morbid obesity due to excess calories. Patient complaining of no symptoms. COMPARISON: None TECHNIQUE: Fluoroscopic air contrast upper GI examination was performed utilizing standard techniques with thin and thick barium and effervescent granules. Numerous spot images were obtained. Several fluoroscopic image hold cine sequences were also obtained. FINDINGS: UPPER GI SERIES: Lateral cine images of the oropharynx and hypopharynx demonstrate normal swallow mechanism with normal epiglottic inversion and soft palate elevation. No laryngeal penetration, glottic or subglottic aspiration identified. No nasopharyngeal reflux present. Hypopharyngeal structures appear normal without evidence of mass or diverticulum. There was mild cricopharyngeal achalasia. Dual and single contrast images of the esophagus demonstrate normal caliber, contour, and mucosal pattern. No evidence of stricture, mass, or ulcerations identified. Esophageal peristalsis was normal. Episodic gastroesophageal reflux identified to the level of the thoracic inlet. Small type I hiatus hernia was noted. Dual contrast and single contrast images of the stomach demonstrated normal contour and mucosal pattern without evidence of mass, ulceration, or other abnormality. Contrast freely passed into the gastric antrum and duodenal bulb without delay. Single and air-contrast images of the duodenal bulb demonstrate no abnormality. The duodenal sweep has a normal appearance, course, and mucosal fold appearance. FLUOROSCOPY TIME: 1 minute, 56 seconds Number of Spot Images:10 Number of cines obtained: 9 DOSE AREA PRODUCT: 3190 uGy-m2 (microgray-meter squared) FL/FL upper GI w air IMPRESSION: 1. Mild cricopharyngeal achalasia. 2. Small type I hiatus hernia. 3. Episodic gastroesophageal reflux present to the level of the thoracic inlet. Electronically signed by: Freddy Haile MD 05/20/2025 09:00 AM EDT
--- OUTSIDE RECORDS SUMMARY | 2025-05-20 08:23 | XMS_ITS | Clinical Summary ---
Author Organization [facility] Address [address] [place] [address] Care Team Providers Care Operating Room Manager Name Role Phone Amee De La Cruz [facility] Primary Care Provider Source Comments [...] right (CMS & HHS-HCC),Bilater al pulmonary embolism ([facility] & [facility]) Take 1 Tablet by mouth once daily 90 Tablet 1 12/18/2022 Active traZODone (DESYREL) 50 mg tabletIndication s:Sleep disturbance Take 0.5-1 Tablets by mouth nightly at bedtime as needed for sleep 30 Tablet 01/15/2023 Active Active Problems Problem Noted Date Diagnosed Date Systemic lupus erythematosus , unspecified SLE type, unspecified organ involvement status ([facility] HHS-HCC) 09/10/2022 Bilateral pulmonary embolism ([facility]) Overview (09/10/2022): Dx April 2022, had a [...] - PCV20 or PCV21) 05/27/2024 05/27/2019, 03/30/2019 Cel-[id number]-08 ( season) 2024 11/01/2021, 11/28/2020, 11/07/2020 Alcohol and Drug Screen 11/11/2024 09/10/2022 Depression Annual Screen 11/11/2024 12/01/2021 Imm-Influenza (#1) 2025 08/25/2022, 1 , 08/19/2020, Additional history exists Colonoscopy 07/24/2029 07/24/2019 [...] purpose. For additional information please refer to http://education.Mapidy.TFG Card Solutions/faq/LPI010 (This link is being provided for informational/ educational purposes only.) The performance of this assay has not been clinically validated in patients less than 2 years old. 03/30/2019 2:36 PM EDT [facility] Provider Default LAB - BLOOD DRAW [...] DATA CONVERSION 03/30/2019 2:36 PM EDT [facility] - BLOOD DRAW Final Res ult DATA CONVERSION from Last 3 Months or Most Recently Relevant to Health Maintenance Insurance [employer] Care Teams Operating Room Manager Relationship Specialty Start Date End Date Amee De La Cruz FNP [address] [place] [address] PCP - General 11/13/23
--- OUTSIDE RECORDS SUMMARY | 2025-05-20 08:23 | XMS_ITS | Clinical Summary ---
Author Organization [employer] [facility] Address [address] [place] [address] [place] [id number] Care Team Providers Care Assembly Instructions Writer Name Role Phone Poc, Non Atrius Pcp [...] Thyroid nodule 06/17/2015 Obesities, morbid 06/17/2015 Immunizations Immunization Administration Dates Next Due Hep A Vaccine [...] - 2023-2 5 season) 2024 FLU SEASONAL (Season Ended) 2025 HAEMOPHILUS INFLUENZA VACCINE Aged Out No longer eligible based on patient's age to complete this topic POLIO VACCINE Aged Out No longer elig ible based on patient's age to complete this topic RSV Vaccine //toddler Aged Out No longer eligible based on patient's age to complete this topic Procedures Procedure Name Priority Date/Time Associated Diagnosis Comments PAP TEST THINPREP VIAL (SAFETY GLASS INSTALLER) Routine 06/17/2015 7:35 PM EDT Screening for cervical cancer from Last 3 Months or Most Recently Relevant to Health Maintenance Results * PAP TEST (06/17/2015 7:35 PM EDT) PAP NILM [facility] DEPARTMENT OF PATHOLOGY AND LAB MEDICINE FINAL DX GENERAL CATEGORY: NEGATIVE FOR INTRAEPITHELIAL LESION OR MALIGNANCY. . SPECIMEN ADEQUACY: Satisfactory for evaluation. Transformation zone component present. . APPSB/APPSB [facility] DEPARTMENT OF PATHOLOGY AND LAB MEDICINE CASE # [id number] [facility] DEPARTMENT OF PATHOLOGY AND LAB MEDICINE PROCEDURE DATE 06/17/2015 [facility] DEPARTMENT OF PATHOLOGY AND LAB MEDICINE ORDERING CLINICIAN ANNE-MARIE DUNN M.D. [facility] DEPARTMENT OF PATHOLOGY AND LAB MEDICINE PATHOLOGIST BASIA DELGADO, Vending Mechanic [facility] DEPARTMENT OF PATHOLOGY AND LAB MEDICINE 06/17/2015 7:35 PM EDT 06/20/2015 9:18 AM EDT Anne-Marie Dunn GENERAL LAB Final Result [facility] [address] [place] [address] [facility] DEPARTMENT OF PATHOLOGY AND LAB MEDICINE [address] [place] [address] from Last 3 Months or Most Recently Relevant to Health Maintenance Care Teams Assembly Instructions Writer Relationship Specialty Start Date End Date Poc, Non Atrius Pcp Or PCP - General 05/11/15 Poc, Not Required Pcp Or PCP - Payer 05/11/15
--- OUTSIDE RECORDS SUMMARY | 2025-05-20 08:23 | XMS_ITS | Patient Health Record ---
Author Organization [facility] Address [address] [place] [address] Care Team Providers Care Transcription Typist Name Role Phone Aimee Heard Unavailable [phone] Allergies Allergen (clinical drug ingredient) Drug/Non Drug [...] Status Risk Notes Problem Morbid obesity (disorder) (069978150) Morbid (severe) obesity due to excess calories (E66.01) Active confirmed Problem Body mass index 40+ - severely obese (596222854) Body mass index [BMI] 45.0-49.9, adult (Z68.42) Active confirmed Problem Adrenal mass (180998062) Adrenal mass (E27.8) Active confirmed Problem Cyst of thyroid (32098826) Thyroid cyst (E04.1) Active confirmed Plan Of Treatment No Information Insurance Providers Payer Name Payer Address Payer Phone Subscriber Number Group Number Insured Name Patient Relationship to Insured Coverage Start Date Coverage End Date [place] [address] [id number] [place] [id number] Corrine Michaels Self - patient is the [...]
== END 2025-05-20 08:17 | disposition home or self-care (01) ==
LOC: HO.XRAY 08:16
PROVIDERS: PCP Physician Assistant; Visit Provider Surgery
DX: J45.20 Mild intermittent asthma, uncomplicated (principal); E66.01 Morbid (severe) obesity due to excess calories
CPT/HCPCS: 74246

== ENCOUNTER → 2025-05-20 08:20 | Outpatient (BNV) | payer OTHER, SELFPAY | PROVIDERS: PCP Physician Assistant; Visit Provider Radiology Diagnostic Radiology | DX: K44.9 Diaphragmatic hernia without obstruction or gangrene (principal); K21.9 Gastro-esophageal reflux disease without esophagitis | CPT/HCPCS: 74246 ==

== ENCOUNTER 2025-05-21 08:16 | Outpatient (RCR) | payer OTHER, SELFPAY | END 2025-09-01 14:34 | disposition home or self-care (01) | LOC: HO.PT 08:16 | PROVIDERS: PCP Physician Assistant; Visit Provider Internal Medicine | DX: M54.50 Low back pain, unspecified (principal) ==

== ENCOUNTER 2025-05-26 08:19 | Outpatient (REF) | payer OTHER, SELFPAY ==
--- NOTE | ~2025-05-26 | US_ITS ---
EXAMINATION: US ABDOMEN COMPLETE WITH LIVER ELASTOGRAPHY HISTORY: E66.01 - Morbid (severe) obesity due to excess calories TECHNIQUE: Real-time grayscale ultrasound imaging of the abdomen was performed and images were reviewed. COMPARISON: There are no prior studies available for comparison. FINDINGS: Liver: The right lobe of the liver measures 15.4 cm in size. The left lobe of the liver measures 6.2 cm in size. The liver demonstrates increased echotexture, consistent with steatosis. No focal mass or intrahepatic biliary ductal dilatation is identified. There is normal hepatopedal flow in the portal vein. Ultrasound elastography of the liver was performed with 10 separate measurements of the liver parenchyma with the patient in the supine position. Measurements were obtained approximately 2 cm below Tom's capsule and perpendicular to the capsule. The median shear wave velocity is 1.79 m/s. The interquartile range/median (IQR/median) is 0.13. Gallbladder and biliary tree: The gallbladder is surgically absent. The common bile duct is normal in caliber measuring 3 mm. Kidneys: The right kidney measures 11.8 cm in length. The left kidney measures 10.8 cm in length. The kidneys are unremarkable, without evidence of masses, hydronephrosis, or calculi. Pancreas: The pancreas is obscured by bowel gas. Spleen: The spleen is normal in size and contour, measuring 12.2 cm in length. Abdominal aorta and inferior vena cava: The visualized portions of the abdominal aorta and inferior vena cava are normal in caliber. There is no free fluid in the abdomen. US/US abdomen comp w elastography IMPRESSION: Hepatic steatosis. The median shear wave velocity in the liver is 1.79 m/s, corresponding to a median liver stiffness of 9.75 kPa. The IQR/median value is 0.13. This is indicative of a quality data set. Findings are indicative of a high elastography value suggestive of compensated advanced chronic liver disease. REFERENCE: Society of Radiologists in Ultrasound Liver Stiffness Thresholds (2020): LIVER STIFFNESS THRESHOLDS: *Shear wave velocity less than 1.3 m/s (Liver Stiffness equal or less than 5 kPa): High probability of being normal. *Shear wave velocity less than 1.7 m/s (Liver Stiffness less than 9 kPa): In the absence of other known clinical signs, rules out compensated advanced chronic liver disease. *Shear wave velocity between 1.7-2.1 m/s (Liver Stiffness 9-13 kPa): Suggestive of compensated advanced chronic liver disease but need further test for confirmation. *Shear wave velocity between 2.1-2.4 m/s (Liver Stiffness 13-17 kPa): Rules in compensated advanced chronic liver disease. *Shear wave velocity greater than 2.4 m/s (Liver Stiffness over 17 kPa): Suggestive of clinically significant portal hypertension. QUALITY OF DATA SET: *IQR/Median value equal or less than 0.15 implies a quality data set. *IQR/Median value over 0.15 implies a poor quality data set. SIGNIFICANT CHANGE FROM PRIOR EXAM: Significant change if liver stiffness measurement is 10% or greater from prior exam. OTHER CONSIDERATIONS: The stage of liver fibrosis may be overestimated in the setting of acute hepatitis, liver inflammation, elevated liver function tests, hepatic vascular congestion, obstructive cholestasis, non-fasting state, and infiltrative diseases such as amyloidosis and lymphoma. In some patients with NAFLD, the liver stiffness thresholds for compensated advanced chronic liver disease may be lower. In causes other than viral hepatitis and NAFLD, liver stiffness thresholds are not well established. Electronically signed by: Dale Palencia MD 05/26/2025 09:27 AM EDT
--- OUTSIDE RECORDS SUMMARY | 2025-05-26 08:22 | XMS_ITS | Patient Health Record ---
Author Organization [facility] [address] Address [address] [place] [address] Care Team Providers Care Operations Assistant Name Role Phone Aimee Heard Unavailable [phone] Allergies Allergen (clinical drug ingredient) Drug/Non Drug [...] Status Risk Notes Problem Morbid obesity (disorder) (745309161) Morbid (severe) obesity due to excess calories (E66.01) Active confirmed Problem Body mass index 40+ - severely obese (191219675) Body mass index [BMI] 45.0-49.9, adult (Z68.42) Active confirmed Problem Adrenal mass (282204805) Adrenal mass (E27.8) Active confirmed Problem Cyst of thyroid (17451342) Thyroid cyst (E04.1) Active confirmed Plan Of Treatment No Information Insurance Providers Payer Name Payer Address Payer Phone Subscriber Number Group Number Insured Name Patient Relationship to Insured Coverage Start Date Coverage End Date Blue Benefits [place] [address] [id number] [place] [id number] Corrine Michaels Self - patient is the [...]
--- OUTSIDE RECORDS SUMMARY | 2025-05-26 08:22 | XMS_ITS | Clinical Summary ---
Author Organization [facility] Address [address] [place] [address] Care Team Providers Care Pbx Repairer Name Role Phone Amee De La Cruz [facility] Primary Care Provider [phone] Source Comments PLEASE NOTE, if this patient [...] right (CMS & HHS-HCC),Bilater al pulmonary embolism ([facility]) Take 1 Tablet by mouth once daily 90 Tablet 1 12/18/2022 Active traZODone (DESYREL) 50 mg tabletIndication s:Sleep disturbance Take 0.5-1 Tablets by mouth nightly at bedtime as needed for sleep 30 Tablet 01/15/2023 Active Active Problems Problem Noted Date Diagnosed Date Systemic lupus erythematosus , unspecified SLE type, unspecified organ involvement status ([facility] & HHS-HCC) 09/10/2022 Bilateral pulmonary embolism ([facility]) Overview (09/10/2022): Dx April 2022, had a [...] - PCV20 or PCV21) 05/27/2024 05/27/2019, 03/30/2019 [id number]-10 ( season) 2024 11/01/2021, 11/28/2020, 11/07/2020 Alcohol [...] colonoscopy to the cecum and terminal ileum. uRdy Sinha PROCEDURES Final Result * HIV 1/2 [...] purpose. For additional information please refer to http://education.ChannelAdvisor.LendYour/faq/VCL238 (This link is being provided for informational/ educational purposes only.) The performance of this assay has not been clinically validated in patients less than 2 years old. 03/30/2019 2:36 PM EDT [facility] Provider Default LAB - BLOOD DRAW [...] DATA CONVERSION 03/30/2019 2:36 PM EDT [facility] - BLOOD DRAW Final Res ult DATA CONVERSION from Last 3 Months or Most Recently Relevant to Health Maintenance Insurance [employer] Care Teams Pbx Repairer Relationship Specialty Start Date End Date Amee De La Cruz FNP [address] [place] [address] PCP - General 11/13/23
--- OUTSIDE RECORDS SUMMARY | 2025-05-26 08:22 | XMS_ITS | Clinical Summary ---
Author Organization [employer] [facility] Address [address] [place] [address] [place] [address] Care Team Providers Care Patent Prosecution Paralegal Name Role Phone Poc, Non Atrius Pcp [...] Associated Diagnosis Comments PAP TEST THINPREP VIAL (VETERINARY PARASITOLOGIST) Routine 06/17/2015 7:35 PM EDT Screening for cervical cancer from Last 3 Months or Most Recently Relevant to Health Maintenance Results * PAP TEST (06/17/2015 7:35 PM EDT) PAP NILM [facility]PART[facility] PATHOLOGY AND LAB MEDICINE FINAL DX GENERAL CATEGORY: NEGATIVE FOR INTRAEPITHELIAL LESION OR MALIGNANCY. . SPECIMEN ADEQUACY: Satisfactory for evaluation. Transformation zone component present. . APPSB/APPSB [facility]OLOG[facility] AND LAB MEDICINE CASE # [id number] [facility] LAB MEDICINE PROCEDURE DATE 06/17/2015 [facility] LAB MEDICINE ORDERING CLINICIAN ANNE-MARIE DUNN M.D. [facility]OLOGY AND LAB MEDICINE PATHOLOGIST BASIA DELGADO, Mixing Machine Tender Cork Rod [facility] LAB MEDICINE 06/17/2015 7:35 PM EDT 06/20/2015 9:18 AM EDT Anne-Marie Dunn GENERAL LAB Final Result [facility] [address] [place] [address] [facility]OLOGY AND LAB MEDICINE [address] [place] [address] from Last 3 Months or Most Recently Relevant to Health Maintenance Care Teams Patent Prosecution Paralegal Relationship Specialty Start Date End Date Poc, Non Atrius Pcp Or PCP - General 05/11/15 Poc, Not Required Pcp Or PCP - Payer 05/11/15
== END 2025-05-26 08:20 | disposition home or self-care (01) ==
LOC: HO.US 08:19
PROVIDERS: PCP Physician Assistant; Visit Provider Surgery
DX: E66.01 Morbid (severe) obesity due to excess calories (principal); J45.20 Mild intermittent asthma, uncomplicated
CPT/HCPCS: 76700; 76981

== ENCOUNTER → 2025-05-26 08:21 | Outpatient (BNV) | payer OTHER, SELFPAY | PROVIDERS: PCP Physician Assistant; Visit Provider Radiology Diagnostic Radiology | DX: K76.0 Fatty (change of) liver, not elsewhere classified (principal) | CPT/HCPCS: 76700 ==

== ENCOUNTER → 2025-06-08 08:31 | Outpatient (REF) | payer OTHER, SELFPAY ==
--- OUTSIDE RECORDS SUMMARY | 2025-06-08 08:46 | XMS_ITS | Patient Health Record ---
Author Organization [facility] Address [address] [place] [address] Care Team Providers Care Hogshead Builder Name Role Phone Aimee Heard Unavailable [phone] Allergies Allergen (clinical drug ingredient) Drug/Non Drug [...] Status Risk Notes Problem Morbid obesity (disorder) (375776727) Morbid (severe) obesity due to excess calories (E66.01) Active confirmed Problem Body mass index 40+ - severely obese (706420454) Body mass index [BMI] 45.0-49.9, adult (Z68.42) Active confirmed Problem Adrenal mass (360041547) Adrenal mass (E27.8) Active confirmed Problem Cyst of thyroid (67323022) Thyroid cyst (E04.1) Active confirmed Plan Of Treatment No Information Insurance Providers Payer Name Payer Address Payer Phone Subscriber Number Group Number Insured Name Patient Relationship to Insured Coverage Start Date Coverage End Date Blue Benefits [place] [address] [id number] [place] [id number] Corrine Michaels Self - patient is the [...]
--- OUTSIDE RECORDS SUMMARY | 2025-06-08 08:46 | XMS_ITS | Clinical Summary ---
Author Organization [facility] Address [address] [place] [address] Care Team Providers Care Barmaid Name Role Phone Amee De La Cruz [facility] Primary Care Provider Source Comments PLEASE [...] right (CMS & HHS-HCC),Bilater al pulmonary embolism ([facility] & [facility]) Take 1 Tablet by mouth once daily 90 Tablet 1 12/18/2022 Active traZODone (DESYREL) 50 mg tabletIndication s:Sleep disturbance Take 0.5-1 Tablets by mouth nightly at bedtime as needed for sleep 30 Tablet 01/15/2023 Active Active Problems Problem Noted Date Diagnosed Date Systemic lupus erythematosus , unspecified SLE type, unspecified organ involvement status ([facility] & HHS-HCC) 09/10/2022 Bilateral pulmonary embolism ([facility] & [facility]) Overview (09/10/2022): Dx April 2022, had a [...] - PCV20 or PCV21) 05/27/2024 05/27/2019, 03/30/2019 Omf-[id number]-65 ( season) 2024 11/01/2021, 11/28/2020, 11/07/2020 Alcohol [...] purpose. For additional information please refer to http://education.directworx.Dashlane/faq/RPT885 (This link is being provided for informational/ educational purposes only.) The performance of this assay has not been clinically validated in patients less than 2 years old. 03/30/2019 2:36 PM EDT [facility] Provider Default LAB - BLOOD [...] DATA CONVERSION 03/30/2019 2:36 PM EDT [facility] Default LAB - BLOOD DRAW Final Res ult DATA CONVERSION from Last 3 Months or Most Recently Relevant to Health Maintenance Insurance [employer] Care Teams Barmaid Relationship Specialty Start Date End Date Amee De La Cruz FNP [address] [place] [address] PCP - General 11/13/23
--- OUTSIDE RECORDS SUMMARY | 2025-06-08 08:46 | XMS_ITS | Clinical Summary ---
Author Organization [facility] Address [address] [place], [place] [id number] Phone Care Team Providers Care Cleaning Technician Name Role Phone Val Hawley Primary Care Provider [phone] Referring, Not Required Unavailable Unavaila ble Immunizations Immunization Administration Dates Next Due COVID-19 (Pre-09/02) Moderna [...] with a working camera? Not on file Comments Unknown Sex and Gender Information Value Date Recorded Sex Assigned at Female 03/26/2024 4:23 PM EDT Legal Sex Female 9:11 PM EST Gender Identity Female 03/26/2024 4:23 PM EDT [...] age to complete this topic MENINGOCOCCAL VACCINES (B) Aged Out N o longer eligible based on patient's age to complete this topic Medical Devices Not on file Procedures Procedure Name Priority Date/Time Associated Diagnosis Comments PAP TEST Routine 02/06/2024 12:00 AM EDT from Last 3 Months or Most Recently Relevant to Health Maintenance Results * Pap Test (02/06/2024 12:00 AM EDT) 02/06/2024 02/07/2024 9:2 1 AM EDT Narrative SEE NARRATIVE - 02/14/2024 10:00 AM EDT [address] [address] Hydroelectric Component Machinist: Corrine Nguyen MD DEPARTMENT SECRETARY Cytology Report FINAL DIAGNOSIS A. PAP SMEAR (SUREPATH) CE: SPECIMEN ADEQUACY: Satisfactory for evaluation; transformation zone present. INTERPRETATION: NEGATIVE FOR INTRAEPITHELIAL LESION OR MALIGNANCY. Electronically Signed Out By: MERARI Lawton(ASCP) The Pap test is a screening test primarily for squamous cancers and precursors and has associated false-negative and false-positive results. New technologies such as liquid-based preparations may decrease but will not eliminate all false-negative results. Regular sampling and follow-up of unexplained clinical signs and symptoms are recommended to minimize false negative results. PROCEDURES/ADDENDA HPV Testing (Requested) Ordered Date: 02/07/2024 A. PAP SMEAR (SUREPATH) CE: Human Papilloma Virus Test NEGATIVE for high-risk Human Papilloma Virus types 16, 18, 45 and the Other high risk probe set (Includes 31, 33, 35, 39, 51, 52, 56, 58, 59, 66, 68) Note: Testing performed by [employer] HR-HPV analysis. Clinical correlation is advised. This HPV test was performed at [facility], [address] [place] [address]. This test has been FDA approved for both SurePath and ThinPrep cervical cytology specimens. The accuracy and precision of this test for all other specimen sources has been verified in the Cytopathology Laboratory of the [facility] and has not been cleared or approved by the U.S. Food and Drug Administration. Clinical correlation is advised. CLINICAL HISTORY Date of Last Menstrual Period: Not Provided Menstrual History: Post Menopausal Other Clinical Conditions: Screening Pap SPECIMEN SOURCE A: PAP SMEAR (SUREPATH) CE Patient Name: SIRISHAHAYLEY CORRINE : 1970 (Age: 53) Sex: F Institution: [facility] Location: [facility] Date of Collection: 02/06/2024 Date of Reported: 02/14/2024 10:00 Results to: Iza RICHTERP Iza Jerez COKE HANDLING SUPERVISOR CYTOLOGY ORDERABLES Final Result SEE NARRATIVE from Last 3 Months or Most Recently Relevant to Health Maintenance [place] [address] [place] [address] [employer] [place] [address] [employer] [address] [address] [employer] Care Teams Cleaning Technician Relationship Specialty Start Date End Date Val Hawley PA [address] [place] [phone] PCP - General Physician Employment Service Specialist 03/26/24 Referring, Not Required 03/26/24 Additional Source Comments The information contained in this document represents components of the legal health record. It is not the complete legal health record.[facility]
== END ==
LOC: HO.SL 08:31
PROVIDERS: PCP Physician Assistant; Visit Provider Surgery
DX: E66.01 Morbid (severe) obesity due to excess calories (principal); J45.20 Mild intermittent asthma, uncomplicated; G47.10 Hypersomnia, unspecified
CPT/HCPCS: 95806

== ENCOUNTER 2025-06-30 08:12 | Outpatient (AMB) | payer OTHER, SELFPAY ==
--- NOTE | 2025-06-30 09:18 | A.OFFVIS_ITS ---
VS Expanded 06/30/25 09:27 Height 5 ft 6 in Weight 268 lb 6 oz BMI 43.3 Body Fat % 58.1 Body Fat Mass 156 Fat Free Mass 112.2 Visceral Fat Rating 23 Body Water % 28.7 Body Water Mass 77 Basal Metabolic Rate/Score 1,469 Intake Visit Reasons: TV Pre Op LSG 07/15/2025 Allergies amoxicillin (From Augmentin) Allergy (Mild, Verified 06/30/25 09:18) Vomiting clavulanic acid (From Augmentin) Allergy (Mild, Verified 06/30/25 09:18) Vomiting nickel Allergy (Verified 06/30/25 09:18) Hives levofloxacin (From Levaquin) Adverse Reaction (Verified 06/30/25 09:18) Anaphylaxis Medication List - Last Reconciled 06/30/25 by Mazin Garcia MD apixaban (Eliquis) 5 mg PO BID multivitamin 1 tab PO DAILY ondansetron 4 mg PO Q12H pantoprazole 40 mg PO DAILY polyethylene glycol 3350 17 grams PO DAILY sucralfate 10 mL PO BID thiamine HCl (vitamin B1) 100 mg PO DAILY HPI HPI TV Pre Op LSG 07/15/2025: Details: Start time: 9.08am, End time: 9.38am ?I spent 25 minutes speaking with the patient on the phone plus an additional 5 minutes reviewing and updating records for a total of 30 minutes HPI Comments Details: Overall weight loss: 33.4lbs, or 11.1% TBWL Is doing 2 Pietro (1 sc= 10gr) protein shakes, two Fit Crunch protein bars and one meal (9 forks of meat and 9 forks of salad/vegetables) Exercise: bike daily for 200 calories PFSH Medical History (Updated 05/30/25 @ 20:55 by Mazin Garcia MD) Back pain Morbid obesity Pulmonary nodule 1 cm or greater in diameter DVT (deep venous thrombosis) Asthma Lupus Surgical History (Updated 03/08/25 @ 14:57 by Yokasta Valdez CMA) Hx of eye surgery Hx of cholecystectomy Hx of hysterectomy, total Family History (Updated 03/08/25 @ 14:58 by Yokasta Valdez CMA) Mother Hypothyroid Father Diabetes Social History (Updated 03/08/25 @ 14:58 by Yokasta Valdez CMA) Alcohol intake: current Alcohol intake frequency: former alcohol drinker Patient Tobacco Use Status: Never used Tobacco service: No Current occupational status: employed Telehealth Telehealth Telehealth Platform: Telephone Location of provider rendering services: practice address Location of patient: address on file Patient Identification confirmed using: Name, : Yes Telehealth method: voice only Patient verbally consented to treatment: Yes Patient verbally consented to billing insurance company: Yes Patient informed of any privacy concerns related to visit: Yes Minutes spent on Phone/Video with Pt.: 30 Assessment & Plan Assessment & Plan (1) Morbid obesity: Code(s): E66.01 - Morbid (severe) obesity due to excess calories Category: Medical Plan: 1. Plan for lap sleeve gastrectomy including upper GI endoscopy. All tests has been completed and reviewed and the patient is cleared for the surgery. ?If diaphragmatic or ventral hernias are present at time of surgery, these will be repaired laparoscopically as well. Risks and complications were discussed in detail including possible conversion to an open procedure, anastomotic leak, bleeding requiring transfusion, small bowel obstruction, , DVT and pulmonary embolism, cardiac, or pulmonary complications, as director long term care complications such as anastomotic ulcer, insufficient weight loss and vitamin deficiencies. I emphasized the importance of close follow-up, adherence to instructions and good communication. So far she has proven to be an excellent communicator and very compliant with all our directions accomplishing a great weight loss. I believe that she is an excellent candidate and she is ready. 2. Preop prescriptions were provided and explained the purpose of each one. Need to be purchased preop. Start Pantoprazole now as you get it from the pharmacy, 1 pill per day. Sucralfate and Zofran are for after surgery as needed. 3. Bowel prep: please do 7 packets ?of Miralax mixing each one with a an 8oz glass of water, crystal light, gatorade zero, or propel ?on 07/13/25 and the same amount on 07/14/25. The Miralax you begin with one packet at a time in 8oz water or crystal light, gatorade zero, or propel ?as early in the day as you can and you do them back to back until you finish them. Continue the protein shakes during ?the bowel prep. 4. Needs to purchase 1oz medicine cups . 5. Needs to purchase Children's liquid Tylenol for postop pain control. 6. She needs to stop the Eliquis on 07/10/25 (last dose that day). Start the Fondaparinux on 07/10/25 and take it daily until 07/14/25. Do not take the Fondaparinux on 07/15/25. 7. Avoid aspirin, motrin, Advil, Aleve, Meloxicam, Excedrin, Ibuprofen, Naproxyn. Tylenol is OK. 8. She needs to purchase the Celebrate multivitamins from the hospital's gift shop, chewable or pills whatever you prefer. 9. Will do basic preop blood work-up any day between Saturday07/05/25 and Saturday07/09/25 fasting for 12 hours and is scheduled to see the Anesthesiologist prior to the day of surgery. 10. Importance of adherence to postop folllow-up and recommendations was unde rscored and she understands that. 11. Stop food and bars as of Saturday07/05/25 and create an aggressive meal plan with the [facility] and send me a screenshot of the plan you will create. Create two plans, one for the days you work overnight and one for the other days. 12. No soups, broths or V8 13. The patient's?medical?history has been reviewed and they are considered low risk for post op DVT and therefore DVT prophylaxis is not considered necessary. Travel after surgery was reviewed. The patient has not disclosed any travel plans during the first 30 days after surgery and they have been advised that within the first 30 days after surgery any bus, plane, train or car travel over 2 hours in duration is contraindicated due to the possibility of developing blood clots from immobility. Any travel, needs to include periods of ambulation of 10 minutes in duration every 2 hours.? Patient was instructed to discuss any plans for travel during this period with their bariatric surgeon.? 14. Please take at the day of surgery the following medications: NONE 15. Stop any control pills and don't use them for one month after surgery 16. Absolutely no smoking or vaping, or marijuana until the surgery and for at least the first 4 weeks. Only nicotine patches are allowed. 17. Send me weight measurements on Saturday07/03/25 and 07/10/25 and then on 07/15/25, the day of surgery before you go to the hospital. 18. Avoid any steroids by mouth for any reason. Let me know if someone prescribes them to you 19. These instructions supersede anything else you read in the handbook, anything you watched in videos or classes or you were told by any other provider. If there is any conflict, you follow the above instructions and nothing else. Orders: Orders Insulin Today E66.01 - Morbid (severe) obesity due to excess calories Hemoglobin A1c Today E66.01 - Morbid (severe) obesity due to excess calories Comprehensive Met. Panel Today E66.01 - Morbid (severe) obesity due to excess calories Partial Thromboplastin Time Today E66.01 - Morbid (severe) obesity due to excess calories Prothrombin Time INR Today E66.01 - Morbid (severe) obesity due to excess calories TSH reflex Free T4 Today E66.01 - Morbid (severe) obesity due to excess calories Complete Blood Count Auto Diff Today E66.01 - Morbid (severe) obesity due to excess calories C Reactive Protein Today E66.01 - Morbid (severe) obesity due to excess calories Lipid Panel Today E66.01 - Morbid (severe) obesity due to excess calories Type and Screen Today E66.01 - Morbid (severe) obesity due to excess calories Medications: New sucralfate 10 mL PO BID 600 mL 2RF K21.9 - Gastro-esophageal reflux disease without esophagitis ondansetron Only take one every 12 hours as needed if you have nausea 4 mg PO Q12H 20 tabs 0RF nausea and vomiting R11.0 - Nausea pantoprazole 40 mg PO DAILY 90 tabs 0RF K21.9 - Gastro-esophageal reflux disease without esophagitis polyethylene glycol 3350 Mix each measuring cup with 8oz of water, Crystal light, or Gatorade zero, or Propel and do 7 measuring cups on 07/13/25 and another 7 measuring cups on 07/14/25 17 grams PO DAILY 238 grams 0RF Z01.818 - Encounter for other preprocedural examination fondaparinux 2.5 mg (0.5 mL) subcut Q24H 5 mL 0RF I82.431 - Acute embolism and thrombosis of right popliteal vein
[2025-06-30 09:27] VITALS: BMI 43.3
== END 2025-06-30 09:39 | disposition home or self-care (01) ==
LOC: HO.HBS 08:12
PROVIDERS: PCP Physician Assistant; Visit Provider Surgery
DX: E66.01 Morbid (severe) obesity due to excess calories (principal); Z68.41 Body mass index [BMI] 40.0-44.9, adult; I82.531 Chronic embolism and thrombosis of right popliteal vein; K21.9 Gastro-esophageal reflux disease without esophagitis; Z01.818 Encounter for other preprocedural examination
CPT/HCPCS: 99214

== ENCOUNTER 2025-07-07 08:44 | Outpatient (REF) | payer OTHER, SELFPAY ==
--- OUTSIDE RECORDS SUMMARY | 2024-01-23 06:00 | XMS_ITS ---
Author Organization [facility] [address] Address [address] [place] [address] Care Team Providers Care Kiln Furniture Caster Name Role Phone Aimee Heard Unavailable [phone] TIM VEGA Unavailable [phone] REASON FOR VISIT 2.5 MG Encounters Encounter Location Date Provider Diagnosis [facility] [address] [address] 01/23/2024 TIM VEGA Plan Of Treatment No Information Progress Notes * Aurelia CONNORSGigiB:1970 (54 yo F)Acc No.[id number]:01/23/2024 Progress Note Patient: Corrine SIMMONS Provider: Anuradha Vega MD :1970 A ge:53 Y S ex:Female Date:01/23/2024 Address:[address] [place], [place] [phone] Subjective: * Chief Complaints: * 1 . 2.5 MG. * Medical History: Objective: * Vitals: Assessment: Plan: * Treatment: * Procedure Codes: 9 9199 NO SHOW OFFICE VISIT Care Plan: * Problems: * Images: Billing Information: * Visit Code: * Procedure Codes: 00303 NO SHOW OFFICE VISIT. Care Plan Details* * Electronic signature of MERISSA VEGA MD on 07/07/2025 at 09:09 AM EDT Sign off status: Pending * Provider: Anuradha Vega MD Date: 01/23/2024 Generated for Printi ng/Fachristig/eTransmitting on: 07/07/2025 09:09 AM EDT
--- OUTSIDE RECORDS SUMMARY | 2024-02-20 05:15 | XMS_ITS ---
Author Organization [facility] [address] Address [address] [place] [address] Care Team Providers Care Command And Control Officer Name Role Phone Aimee Heard Unavailable [phone] REASON FOR VISIT with [facility] Encounters Encounter Location Date Provider Diagnosis [facility] [address] [address] 02/20/2024 Aimee Heard Plan Of Treatment No Information Progress Notes * Jenelle CONNORSB:1970 (54 yo F)Acc No.[id number]:02/20/2024 Patient: Corrine SIMMONS Provider: Karly Heard PA-C :1970 A ge:53 Y S ex:Female Date:02/20/2024 Address:[address] [place], [place] [phone] Subjective: * Chief Complaints: * 1 . with [facility]. * Medical History: Objective: * Vitals: Assessment: Plan: * Treatment: * Images: Billing Information: * Visit Code: * Procedure Codes: * Electronic signature of Aimee Heard PA-C on 07/07/2025 at 09:09 AM EDT Sign off status: Pending * Provider: Karly Heard PA-C Date: 0 02/20/2024 Generated for Sherrill brown/Mauricio/eTlexiiitting on: 07/07/2025 09:09 AM EDT
--- OUTSIDE RECORDS SUMMARY | 2025-07-07 09:09 | XMS_ITS | Clinical Summary ---
Author Organization [facility] Address [address] [place] [address] Care Team Providers Care Commercial Title Examiner Name Role Phone Amee De La Cruz [facility] Primary Care Provider [phone] Source Comments PLEASE NOTE, if this patient [...] right (CMS & HHS-HCC),Bilater al pulmonary embolism ([facility]) Take 1 Tablet by mouth once daily 90 Tablet 1 12/18/2022 Active traZODone (DESYREL) 50 mg tabletIndication s:Sleep disturbance Take 0.5-1 Tablets by mouth nightly at bedtime as needed for sleep 30 Tablet 01/15/2023 Active Active Problems Problem Noted Date Diagnosed Date Systemic lupus erythematosus , unspecified SLE type, unspecified organ involvement status ([facility] & HHS-HCC) 09/10/2022 Bilateral pulmonary embolism ([facility]) Overview (09/10/2022): Dx April 2022, had a [...] - PCV20 or PCV21) 05/27/2024 05/27/2019, 03/30/2019 [id number] ( season) 2024 11/01/2021, 11/28/2020, 11/07/2020 Alcohol [...] purpose. For additional information please refer to http://education.BCNX.[employer]/faq/BVH445 (This link is being provided for informational/ educational purposes only.) The performance of this assay has not been clinically validated in patients less than 2 years old. 03/30/2019 2:36 PM EDT [facility] Provider Default LAB - BLOOD [...] DATA CONVERSION 03/30/2019 2:36 PM EDT [facility] Default LAB - BLOOD DRAW Final Res ult DATA CONVERSION from Last 3 Months or Most Recently Relevant to Health Maintenance Insurance [employer] Care Teams Commercial Title Examiner Relationship Specialty Start Date End Date Amee De La Cruz FNP [address] [place] [address] PCP - General 11/13/23
--- OUTSIDE RECORDS SUMMARY | 2025-07-07 09:09 | XMS_ITS | Patient Health Record ---
Author Organization [facility] [address] [address] Address [address] [place] [address] Care Team Providers Care Corporate Account Executive Name Role Phone Aimee Heard Unavailable [phone] Allergies Allergen (clinical drug ingredient) Drug/Non Drug [...] Status Risk Notes Problem Morbid obesity (disorder) (695319898) Morbid (severe) obesity due to excess calories (E66.01) Active confirmed Problem Body mass index 40+ - severely obese (672909585) Body mass index [BMI] 45.0-49.9, adult (Z68.42) Active confirmed Problem Adrenal mass (058714606) Adrenal mass (E27.8) Active confirmed Problem Cyst of thyroid (17781227) Thyroid cyst (E04.1) Active confirmed Plan Of Treatment No Information Insurance Providers Payer Name Payer Address Payer Phone Subscriber Number Group Number Insured Name Patient Relationship to Insured Coverage Start Date Coverage End Date [place] [address] [id number] [place] [id number] Corrine Michaels Self - patient is the [...]
--- OUTSIDE RECORDS SUMMARY | 2025-07-07 09:09 | XMS_ITS | Clinical Summary ---
Author Organization [employer] [facility] Address [address] [place] [address] [place] [address] Care Team Providers Care Computer System Validation Specialist Name Role Phone Poc, Non Atrius [...] Associated Diagnosis Comments PAP TEST THINPREP VIAL (OPERATIONS INSPECTOR) Routine 06/17/2015 7:35 PM EDT Screening for cervical cancer from Last 3 Months or Most Recently Relevant to Health Maintenance Results * PAP TEST (06/17/2015 7:35 PM EDT) PAP NILM [facility] DEPARTMENT OF PATHOLOGY AND LAB MEDICINE FINAL DX GENERAL CATEGORY: NEGATIVE FOR INTRAEPITHELIAL LESION OR MALIGNANCY. . SPECIMEN ADEQUACY: Satisfactory for evaluation. Transformation zone component present. . APPSB/APPSB [facility] DEPARTMENT OF PATHOLOGY AND LAB MEDICINE CASE # [id number] [facility] DEPARTMENT OF PATHOLOGY AND LAB MEDICINE PROCEDURE DATE 06/17/2015 [facility] DEPARTMENT OF PATHOLOGY AND LAB MEDICINE ORDERING CLINICIAN ANNE-MARIE DUNN M.D. [facility] DEPARTMENT OF PATHOLOGY AND LAB MEDICINE PATHOLOGIST BASIA DELGADO, Floor Sanding Machine Operator [facility] DEPARTMENT OF PATHOLOGY AND LAB MEDICINE 06/17/2015 7:35 PM EDT 06/20/2015 9:18 AM EDT Anne-Marie Dunn GENERAL LAB Final Result [facility] [address] [place] [address] [facility] DEPARTMENT OF PATHOLOGY AND LAB MEDICINE [address] [place] [address] from Last 3 Months or Most Recently Relevant to Health Maintenance Care Teams Computer System Validation Specialist Relationship Specialty Start Date End Date Poc, Non Atrius Pcp Or PCP - General 05/11/15 Poc, Not Required Pcp Or PCP - Payer 05/11/15
--- OUTSIDE RECORDS SUMMARY | 2025-07-07 09:10 | XMS_ITS | Clinical Summary ---
Author Organization [facility] Address [address] [place] [address] Care Team Providers Care Executive Consultant Name Role Phone Anna Blakely MD Primary Care Provider Allergies Active Allergy Reactions Criticality Noted Date Comments Levofloxacin Anaphylaxis Identified As: From Levaquin Nickel Hives Medications multivitamin per tablet 1 TAB PO DAILY 06/04/2022 Active rivaroxaban (XARELTO) 20 mg Tab tablet 20 MG PO DAILY 06/04/2022 Active Active Problems Problem Noted Date Diagnosed Date Other pulmonary embolism without acute cor pulmo nale 05/03/2022 Syncope and collapse 05/03/2022 Overview (07/29/2024): ICD-10 Qualified Code(s): R55 - Syncope and collapse; Syncope type - unspecified; Pain in right lower leg 04/13/2022 Immunizations Immunization Administration Dates Next Due COVID-19 Vaccine (PFIZER) Original Formulation (prior to Nov 2021) 11/28/2020,11/07/2020 COVID-19 Vaccine (MODERNA) 11/01/2021 Social History Tobacco Use Types Packs/Day Years Used Date Smoking Tobacco: Never Assessed Comments Unknown Sex and Gender Information Value Date Recorded Sex Assigned at Not on file Legal Sex Female 2:20 AM EST Gender Identity Not on file Sexual Orientation Not on file Last Filed Vital Signs Vital Sign Reading Time Taken Comments Blood Pressure - - Pulse - - Temperature - - Respiratory Rate - - Oxygen Saturation - - Inhaled Oxygen Concentration - - Weight 138 kg (304 lb 7.3 oz) 07/06/2022 1:24 PM EDT Height 167.6 cm (5' 6 ) 07/06/2022 1:24 PM EDT Body Mass Index 49.14 07/06/2022 1:24 PM EDT Plan of Treatment Health Maintenance Due Date Last Done Comments Blood Pressure 1971 Depression Screening 1975 Hepatitis C Screening 1989 DTaP,Tdap,and Td Vaccines (1 - Tdap) 1990 Pap Smear 1992 Cervical Cancer Screening 2001 HPV/Cotest 2001 Breast Cancer Screening 2011 CT Colonography 2016 Colonoscopy 2016 Colorectal Cancer Screening 2016 FIT 2016 FOBT 2016 Multitarget Stool DNA (Cologuard) 2016 Sigmoidoscopy 2016 Pneumococcal Vaccine (1 of 1 - PCV) 2021 Zoster Vaccine (1 of 2) 2021 COVID-19 Vaccine (4 - 2023-2 5 season) 2024 11/01/2021, 11/28/2020, 11/07/2020 Lipid Panel 07/04/2025 07/04/2020 Influenza Vaccine (#1) 2025 Meningococcal B Vaccines Aged Out No longer eligible based on patient's age to complete this topic Meningococcal Vaccines Aged Out No lo nger eligible based on patient's age to complete this topic Pneumococcal Vaccine: Pediatrics (0 to 5 Years) and At-Risk Patients (6 to 64 Years) Aged Out No longer eligible b ased on patient's age to complete this topic Procedures Procedure Name Priority Date/Time Associated Diagnosis Comments LIPID PANEL Routine 07/04/2020 1:58 PM EDT from Last 3 Months or Most Recently Relevant to Health Maintenance Results * (ABNORMAL) Lipid Panel (07/04/2020 1:58 PM EDT) Triglycerides 77 <150 mg/dL CONVERSION FROM [facility] Cholesterol 202(H) <200 mg/dL CONVERSION FROM [facility] LDL-CHOL CALC (CNV) 137 mg/dL CONVERSION FROM [facility] Comment: Reference range: >20 years of age Acceptable: <130 mg/dL Borderline: 130-159 mg/dL High: >159 mg/dL National Cholesterol Education Program Guidelines Reference range: >20 years of age Acceptable: <130 mg/dL Borderline: 130-159 mg/dL High: >159 mg/dL National Cholesterol Education Program Guidelines HDL Cholesterol 50 40 - 60 mg/dL CONVERSION FROM [facility] Comment: Cardiovascular risk <40 mg/dL High risk >60 mg/dL Low risk 07/04/2020 1:58 PM EDT 07/04/2020 1:58 PM EDT John Newman MD LAB BLOOD ORDERABLES Bea l Result CONVERSION FROM [facility] from Last 3 Months or Most Recently Relevant to Health Maintenance Advance Directives Documents on File Type Date Recorded Patient Chain Dyer Expl anation Health Care Proxy 04/13/2022 8:32 AM Health Care Proxy Advance Directive 08/17/2020 12:00 AM [facility] NCE DIRECTIVE: 08/09/2020 Auth to Disclose PHI Care Teams Executive Consultant Relationship Specialty Start Date End Date Anna Blakely MD [address] [place] [id number] PCP - General 07/06/22
--- OUTSIDE RECORDS SUMMARY | 2025-07-07 09:10 | XMS_ITS | Clinical Summary ---
Author Organization [facility] Address [address] [place], [place] [id number] Phone Care Team Providers Care Head Baker Name Role Phone Val Hawley Primary Care Provider [phone] Referring, Not Required Unavailable Unavaila ble Immunizations [...] SEE NARRATIVE - 02/14/2024 10:00 AM EDT [address] [address] Regional Transfer Liaison: Corrine Nguyen MD PAN RECLAIM PROCESSOR Cytology Report FINAL DIAGNOSIS A. PAP SMEAR [...] 59, 66, 68) Note: Testing performed by [employer] HR-HPV analysis. Clinical correlation is advised. This HPV test was performed at [facility], [address] [place] [address]. This test has been FDA approved for [...] : 1970 (Age: 53) Sex: F Institution: [facility] Location: [facility] Date of Collection: 02/06/2024 Date of Reported: 02/14/2024 10:00 Results to: Iza RICHTERP Iza Jerez SEWING TRIMMER CYTOLOGY ORDERABLES Final Result SEE NARRATIVE from Last 3 Months or Most Recently Relevant to Health Maintenance [place] [address] [address] [place] [address] [employer] [place] [address] [place] [address] [employer] [address] [employer] Care Teams Head Baker Relationship Specialty Start Date End Date Val Hawley PA [address] [place] [phone] PCP - General Physician Loading Dock Helper 03/26/24 Referring, Not Required 03/26/24 Additional Source Comments The information contained in this document represents components of the legal health record. It is not the complete legal health record.[facility]
[2025-07-07 09:43] LABS: MANUAL DIFF FLAG NO
[2025-07-07 09:49] LABS: Hematocrit 40.6 % (37.0-47.0); Hemoglobin 13.6 g/dl (12.0-16.0); Imm Gran Abs Auto 0.01 X10*3/uL (0.00-0.03); Imm Gran Pct Auto 0.2 % (0.0-0.4); Lymphocytes Absolute Auto 2.0 X10*3/uL (1.2-4.9); Mean Corpuscular HGB Conc 33.5 g/dl (31.0-35.0); Mean Corpuscular Hemoglobin 28.9 pg (27.0-33.0); Mean Corpuscular Volume 86.4 fL (80.0-98.0); NRBC Abs Auto 0.000 X10*3/uL (0.0-0.012); NRBC Pct Auto 0.0 /100WBC (0.0-0.2); Platelet Count 208 X10*3/uL (160-400); Red Blood Count 4.70 X10*6/uL (4.20-5.50); White Blood Count 6.0 X10*3/uL (4.8-10.8)
[2025-07-07 10:09] LABS: Hemoglobin A1C 107.7685 umol/L; Total Hemoglobin (HGBA1C) 3487.8523 umol/L
[2025-07-07 10:49] LABS: INTERNATIONAL NORM RATIO 1.2 (0.9-1.1); Prothrombin Time 13.5 SEC (10.9-12.4)
[2025-07-07 10:52] LABS: Partial Thromboplastin Time 32.3 SEC (26.7-34.1)
[2025-07-07 11:27] LABS: Alanine Aminotransferase 53 U/L (0-31); Albumin Level 4.0 g/dL (3.5-5.0); Alkaline Phosphatase 93 U/L (39-117); Anion Gap 11 (12-20); Aspartate Amino Transferase 29 U/L (5-31); Blood Urea Nitrogen 15 mg/dL (9-16); Calcium 9.8 mg/dL (8.4-10.2); Carbon Dioxide 23 mmol/L (22-29); Chloride 107 mmol/L (96-108); Cholesterol 168 mg/dL (<200); Estimated Glomerular Filt Rate > 60; HDL Cholesterol 34 mg/dL (>40); Potassium 3.7 mmol/L (3.3-5.1); Sodium 137 mmol/L (135-145); Total Protein 7.3 g/dL (6.5-8.0); Triglycerides 65 mg/dL (<150)
== END 2025-07-07 08:45 | disposition home or self-care (01) ==
LOC: HO.LAB 08:44
PROVIDERS: PCP Internal Medicine; Visit Provider Surgery
DX: Z51.81 Encounter for therapeutic drug level monitoring (principal); Z13.1 Encounter for screening for diabetes mellitus; E66.01 Morbid (severe) obesity due to excess calories; J45.20 Mild intermittent asthma, uncomplicated
CPT/HCPCS: 36415; 80053; 80061; 83036; 83525; 84443; 84630; 85025; 85610; 85730; 86140

== ENCOUNTER 2025-07-15 06:01 | Inpatient (IN) | payer OTHER, SELFPAY ==
[2025-07-01 15:29] VITALS: BMI 43.3
[2025-07-01 15:30] VITALS: BMI 43.3
--- NOTE | 2025-07-05 14:49 | HO.ANESPROP2 ---
Documented by User: Bisi Escalona NP 07/05/25 14:53 HPI - Anesthesia Eval Consult details Narrative: 54yo F for Gastrectomy Sleeve,EGD,possible Diaphragmatic Hernia,possible Ventral Hernia,possible Open s/p Upper Endoscopy 05/2025 with MAC DVT/Lupus - eliquis - arixtra bridge BMI 48 PMFSH Active Problems Active Problems: All Active Problems Vitamin B1 deficiency (Acute) Abnormal EKG (Acute) Pulmonary embolism (Acute) Lymphedema (Acute) Varicose veins of right lower extremity with inflammation (Acute) Back pain (Acute) Morbid obesity (Acute) Asthma (Acute) Pulmonary nodule 1 cm or greater in diameter (Acute) DVT (deep venous thrombosis) (Acute) Past Medical History Medical History GERD (gastroesophageal reflux disease) Anesthesia complication Endometrial cancer Asthma Pulmonary emboli Fatty liver Back pain Morbid obesity Pulmonary nodule 1 cm or greater in diameter DVT (deep venous thrombosis) Lupus Family History Family History Mother Hypothyroid Father Diabetes Family history of problems with anesthesia: No Surgical History Surgical History H/O colonoscopy History of esophagogastroduodenoscopy (EGD) Hx of eye surgery Hx of cholecystectomy Hx of hysterectomy, total History of Problems with Anesthesia: No Social History Social History Are you a primary home care physical therapist to a significant other at home: No Do you presently have visiting nurse or other home services: No Alcohol intake: current Alcohol intake frequency: does not drink Patient Tobacco Use Status: Never used Tobacco Use of substances other than those prescribed or required for medical reasons: No Have you been hit, kicked, punched, or otherwise hurt by someone within the past year? If so, by whom?: No Spiritual Healthcare Practices: no [facility] Practices: no Cultural Healthcare Practices: no Are you DNR?: No Advance Directives: No Advance Directives Information Provided: Yes Advance Directives on File: No Patient : No (hysterectomy) FDLMP: n/a Poor oral hygiene: No service: No Current occupational status: employed Meds Allergies Allergy/AdvReac Type Severity Reaction Status Date / Time nickel Allergy Intermediate Hives Verified 07/15/25 06:06 amoxicillin (From Augmentin) Allergy Mild Vomiting Verified 07/15/25 06:06 clavulanic acid (From Allergy Mild Vomiting Verified 07/15/25 06:06 Augmentin) levofloxacin (From Levaquin) AdvReac Severe Anaphylaxis Verified 07/15/25 06:06 Home Medications ?Medication ?Instructions ?Recorded ?Confirmed ?Last Taken ?Type multivitamin 1 tab PO DAILY 03/08/25 07/15/25 07/14/25 History psyllium husk 0.52 gram capsule 0.52 g PO DAILY 07/01/25 07/15/25 07/14/25 History (Fiber (psyllium husk)) Exam Height,Weight and Vital Signs: Height 5 ft 6 in Weight 121.563 kg Narrative Narrative: EKG 03/2025 Vent. Rate : 76 BPM Atrial Rate : 76 BPM P-R Int : 170 ms QRS Dur : 88 ms QT Int : 412 ms P-R-T Axes : 50 20 38 degrees QTcB Int : 463 ms Normal sinus rhythm Nonspecific T wave abnormality Abnormal ECG When compared with ECG of 24-Jan-2025 11:09, No significant change was found ECHO 03/2025 Conclusions: - 1. Technically limited study 2. Normal LV ejection fraction 55-60% 3. Limited visualization of cardiac valves Cardiopulm Stress Test 05/2025 Findings : At rest images are of good quality. LV systolic function is normal with normal wall motion. Post exercise images are of borderline quality. There is normal augmentaton of overall LV systolic function with no obvious regional wall motion abnormalities. Conclusion : Stress echo is negative for ischemia at achieved workload and HR Assessment and Plan Assessment Anesthesia Assessment: Chart Reviewed Final Anesthetic Review Family History of Problems with Anesthesia: No History of Problems with Anesthesia: No Documented by User: Antoinette Anthony NP 07/14/25 09:17 HPI - Anesthesia Eval Consult details Narrative: 54yo F for Gastrectomy Sleeve,EGD,possible Diaphragmatic Hernia,possible Ventral Hernia,possible Open s/p Upper Endoscopy 05/2025 with MAC DVT/Lupus - eliquis - arixtra bridge BMI 43.3 [facility] Past Medical History Medical History GERD (gastroesophageal reflux disease) Anesthesia complication Endometrial cancer Asthma Pulmonary emboli Fatty liver Back pain Morbid obesity Pulmonary nodule 1 cm or greater in diameter DVT (deep venous thrombosis) Lupus Family History Family History Mother Hypothyroid Father Diabetes Surgical History Surgical History H/O colonoscopy History of esophagogastroduodenoscopy (EGD) Hx of eye surgery Hx of cholecystectomy Hx of hysterectomy, total Social History Social History Are you a primary home care physical therapist to a significant other at home: No Do you presently have visiting nurse or other home services: No Alcohol intake: current Alcohol intake frequency: does not drink Patient Tobacco Use Status: Never used Tobacco Use of substances other than those prescribed or required for medical reasons: No Have you been hit, kicked, punched, or otherwise hurt by someone within the past year? If so, by whom?: No Spiritual Healthcare Practices: no [facility] Practices: no Cultural Healthcare Practices: no Are you DNR?: No Advance Directives: No Advance Directives Information Provided: Yes Advance Directives on File: No Patient : No (hysterectomy) FDLMP: n/a Poor oral hygiene: No service: No Current occupational status: employed Meds Allergies Allergy/AdvReac Type Severity Reaction Status Date / Time nickel Allergy Intermediate Hives Verified 07/15/25 06:06 amoxicillin (From Augmentin) Allergy Mild Vomiting Verified 07/15/25 06:06 clavulanic acid (From Allergy Mild Vomiting Verified 07/15/25 06:06 Augmentin) levofloxacin (From Levaquin) AdvReac Severe Anaphylaxis Verified 07/15/25 06:06 Home Medications ?Medication ?Instructions ?Recorded ?Confirmed ?Last Taken ?Type multivitamin 1 tab PO DAILY 03/08/25 07/15/25 07/14/25 History psyllium husk 0.52 gram capsule 0.52 g PO DAILY 0807/15/25 07/14/25 History (Fiber (psyllium husk)) Exam Pertinent Lab Results Pertinent Lab Results: Laboratory Tests 07/07/25 09:40 WBC 6.0 RBC 4.70 Hgb 13.6 Hct 40.6 Plt Count 208 D Sodium 137 Potassium 3.7 BUN 15 Creatinine 0.64 Documented by User: Luba Finch MD 07/15/25 08:17 PMFSH Past Medical History Medical History GERD (gastroesophageal reflux disease) Anesthesia complication Endometrial cancer Asthma Pulmonary emboli Fatty liver Back pain Morbid obesity Pulmonary nodule 1 cm or greater in diameter DVT (deep venous thrombosis) Lupus Family History Family History Mother Hypothyroid Father Diabetes Surgical History Surgical History H/O colonoscopy History of esophagogastroduodenoscopy (EGD) Hx of eye surgery Hx of cholecystectomy Hx of hysterectomy, total Social History Social History Are you a primary home care physical therapist to a significant other at home: No Do you presently have visiting nurse or other home services: No Alcohol intake: current Alcohol intake frequency: does not drink Patient Tobacco Use Status: Never used Tobacco Use of substances other than those prescribed or required for medical reasons: No Have you been hit, kicked, punched, or otherwise hurt by someone within the past year? If so, by whom?: No Spiritual Healthcare Practices: no [facility] Practices: no Cultural Healthcare Practices: no Are you DNR?: No Advance Directives: No Advance Directives Information Provided: Yes Advance Directives on File: No Patient : No (hysterectomy) FDLMP: n/a Poor oral hygiene: No service: No Current occupational status: employed Meds Allergies Allergy/AdvReac Type Severity Reaction Status Date / Time nickel Allergy Intermediate Hives Verified 07/15/25 06:06 amoxicillin (From Augmentin) Allergy Mild Vomiting Verified 07/15/25 06:06 clavulanic acid (From Allergy Mild Vomiting Verified 07/15/25 06:06 Augmentin) levofloxacin (From Levaquin) AdvReac Severe Anaphylaxis Verified 07/15/25 06:06 Home Medications ?Medication ?Instructions ?Recorded ?Confirmed ?Last Taken ?Type multivitamin 1 tab PO DAILY 03/08/25 07/15/25 07/14/25 History psyllium husk 0.52 gram capsule 0.52 g PO DAILY 07/01/25 07/15/25 07/14/25 History (Fiber (psyllium husk)) Exam Airway Mallampati Class: III (globally poor dentition) TM Dist: >3cm Neck ROM: Full Partial: Upper Loose/Missing/Broken Teeth: Yes, Upper and Lower Heart: RRR Lungs: CTA Assessment and Plan Assessment Anesthesia Assessment: Anesthesia Plan Discussed Final Anesthetic Review NPO: Yes ASA Class: III Final Preanesthetic Review: Meds/Allgs Chart Reviewed, Consent Obtained/Reviewed and Anes Risks/Benef Reviewed Patient Risk: Intermediate Procedure Risk: Intermediate Anesthetic Plan Anesthetic Plan: GA Disposition: Standard PACU
[2025-07-15] VITALS (15 sets, daily range): BP systolic 90–132; BP diastolic 30–70; PULSE 55–98; RESP 14–18; TEMP 36.3–37; O2SAT 92–99; BMI 41.9
--- OUTSIDE RECORDS SUMMARY | 2025-07-15 06:13 | XMS_ITS | Clinical Summary ---
Author Organization [facility] Address [address] [place] [address] Care Team Providers Care Tobacco Grower Name Role Phone Anna Blakely MD Primary [...] EDT) Triglycerides 77 <150 mg/dL CONVERSION FROM [facility] Cholesterol 202(H) <200 mg/dL CONVERSION FROM [facility] LDL-CHOL CALC (CNV) 137 mg/dL CONVERSION FROM [facility] Comment: Reference range: >20 years of age Acceptable: <130 mg/dL Borderline: 130-159 mg/dL High: >159 mg/dL National Cholesterol Education Program Guidelines Reference range: >20 years of age Acceptable: <130 mg/dL Borderline: 130-159 mg/dL High: >159 mg/dL National Cholesterol Education Program Guidelines HDL Cholesterol 50 40 - 60 mg/dL CONVERSION FROM [facility] Comment: Cardiovascular risk <40 mg/dL High risk >60 mg/dL Low risk 07/04/2020 1:58 PM EDT 07/04/2020 1:58 PM EDT John Newman MD LAB BLOOD ORDERABLES Bea l Result CONVERSION FROM [facility] from Last 3 Months or Most Recently Relevant to Health Maintenance Advance Directives Documents on File Type Date Recorded Patient Mill Roll Rewinder Expl anation Health Care Proxy 04/13/2022 8:32 AM Health Care Proxy Advance Directive 08/17/2020 12:00 AM [facility] NCE DIRECTIVE: 08/09/2020 Auth to Disclose PHI Care Teams Tobacco Grower Relationship Specialty Start Date End Date Anna Blakely MD [address] [place] [id number] PCP - General 07/06/22
--- OUTSIDE RECORDS SUMMARY | 2025-07-15 06:13 | XMS_ITS | Clinical Summary ---
Author Organization [facility] Address [address] [place] [address] Care Team Providers Care Export Specialist Name Role Phone Amee De La Cruz [facility] Primary Care Provider [phone] Source Comments PLEASE NOTE, if this patient [...] right (CMS & HHS-HCC),Bilater al pulmonary embolism ([facility]) Take 1 Tablet by mouth once daily 90 Tablet 1 12/18/2022 Active traZODone (DESYREL) 50 mg tabletIndication s:Sleep disturbance Take 0.5-1 Tablets by mouth nightly at bedtime as needed for sleep 30 Tablet 01/15/2023 Active Active Problems Problem Noted Date Diagnosed Date Systemic lupus erythematosus , unspecified SLE type, unspecified organ involvement status ([facility] & HHS-H[facility]) 09/10/2022 Bilateral pulmonary embolism ([facility]) Overview (09/10/2022): Dx April 2022, had [...] - PCV20 or PCV21) 05/27/2024 05/27/2019, 03/30/2019 Alcohol and Drug Screen 11/11/2024 09/10/2022 Depression Annual Screen 11/11/2024 12/01/2021 [id number] ( season) 2025 11/01/2021, 11/28/2020, 11/07/2020 Imm-Influenza (#1) 2025 08/25/2022, 1 , 08/19/2020, [...] purpose. For additional information please refer to http://education.Accountable.[employer]tral[employer]/faq/DAX657 (This link is being provided for informational/ educational purposes only.) The performance of this assay has not been clinically validated in patients less than 2 years old. 03/30/2019 2:36 PM EDT [facility] Provider Default LAB - BLOOD DRAW Final [...] DATA CONVERSION 03/30/2019 2:36 PM EDT [facility] - BLOOD DRAW Final Res ult DATA CONVERSION from Last 3 Months or Most Recently Relevant to Health Maintenance Insurance [employer] Care Teams Export Specialist Relationship Specialty Start Date End Date Amee De La Cruz FNP [address] [place] [phone] PCP - General 11/13/23
--- OUTSIDE RECORDS SUMMARY | 2025-07-15 06:13 | XMS_ITS | Clinical Summary ---
Author Organization [facility] Address [address] [place], [place] [id number] Phone Care Team Providers Care House Sitter Name Role Phone Val Hawley Primary Care Provider [phone] Referring, Not Required Unavailable Unavaila ble Immunizations [...] SEE NARRATIVE - 02/14/2024 10:00 AM EDT [address] [address] Clinical Review Specialist: Corrine Nguyen MD CHILLER TENDER Cytology Report FINAL DIAGNOSIS A. PAP SMEAR [...] 59, 66, 68) Note: Testing performed by [employer] HR-HPV analysis. Clinical correlation is advised. This HPV test was performed at [facility], [address] [place] [address]. This test has been FDA approved for both SurePath and ThinPrep cervical cytology specimens. The accuracy and precision of this test for all other specimen sources has been verified in the Cytopathology Laboratory of the [facility] and has not been cleared or approved by the U.S. Food and Drug Administration. Clinical correlation is advised. CLINICAL HISTORY Date of Last Menstrual Period: Not Provided Menstrual History: Post Menopausal Other Clinical Conditions: Screening Pap SPECIMEN SOURCE A: PAP SMEAR (SUREPATH) CE Patient Name: SIRISHAHAYLEY CORRINE : 1970 (Age: 53) Sex: F Institution: [facility] Location: [facility] Date of Collection: 02/06/2024 Date of Reported: 02/14/2024 10:00 Results to: Iza RICHTERP Iza Jerez TOWER OBSERVER CYTOLOGY ORDERABLES Final Result SEE NARRATIVE from Last 3 Months or Most Recently Relevant to Health Maintenance [place] [address] [place] [address] [employer] [address] [place] [address] [employer] [address] [place] [id number] [employer] Care Teams House Sitter Relationship Specialty Start Date End Date Val Hawley PA [address] [place] [id number] PCP - General Physician Experiential Therapist 03/26/24 Referring, Not Required 03/26/24 Additional Source Comments The information contained in this document represents components of the legal health record. It is not the complete legal health record.[facility]
[2025-07-15] MEDS: Lactated Ringers 1,000 ML 999 ML IV (06:29)
[2025-07-15] MEDS: Aprepitant 32 MG/4.4 ML VIAL IVPUSH (06:35)
[2025-07-15] MEDS: vancomycin/NS 2,000 MG/500 ML PLAST..BAG 250 MG IV ×2 (06:44→19:19)
--- NOTE | 2025-07-15 07:15 | PHA.MEDREC ---
Pharmacy Consult ? Medication Reconciliation Pharmacy has reviewed the medication reconciliation done by nursing.
--- NOTE | 2025-07-15 07:33 | MHC.SHP ---
Pre-Procedural Eval Section A - 24 Hr Update-Section A only Date of Service: 07/15/25 The patient is an INPATIENT: Yes The patient has been examined within 24 hours of the surgical procedure. The History & Physical has been completed within 30 days and I have reviewed it.: Yes Section B - Complete if H&P > 30 days Chief Complaint: Morbid Obesity Relevant Family History (Specify if Yes): No Relevant Social History: None Present Medications: None Medical History: No relevant PMH History of Previous Operations: No relevant previous surgery Allergies: Allergies Allergy/AdvReac Type Severity Reaction Status Date / Time nickel Allergy Intermediate Hives Verified 07/15/25 06:06 amoxicillin (From Augmentin) Allergy Mild Vomiting Verified 07/15/25 06:06 clavulanic acid (From Allergy Mild Vomiting Verified 07/15/25 06:06 Augmentin) levofloxacin (From Levaquin) AdvReac Severe Anaphylaxis Verified 07/15/25 06:06 Review of Systems Sugical H&P ROS: Negative: Constitution, Cardiovascular, Respiratory, Neurological, Psychiatric, Hem-Onc, Allergic/Immunologic, Gastrointestinal, Genitourinary, Musculoskeletal, Integumentary, Endocrine and Eyes/Ears/Nose/Throat Exam Surgical H&P Exam: Normal: HEENT, Normal: Heart, Normal: Lungs, Normal: Extremities, Normal: Abdomen, Normal: Skin and Normal: Neurological Plan Diagnosis/Plan: Unchanged I have reviewed the history and physical and performed a pertinent physical examination on my patient. No changes have occurred unless specified. Time Spent With Patient Time: Total time managing care of this patient today ____ minutes.
[2025-07-15] MEDS: Lactated Ringers 1,000 ML 100 ML IVCONT ×2 (07:34→13:07)
--- NOTE | 2025-07-15 07:34 | PM.OP ---
Brief Operative Note Date of Service: 07/15/25 Pre-op diagnosis: Morbid obesity with comorbidities (see below) Post-op diagnosis: same Procedure: INITIAL PATIENT BMI ON PRESENTATION AT OUR OFFICE: 48.7 kg/m2 LAST BMI BEFORE SURGERY: 42.9 kg/m2 COMORBIDITIES: History of DVT/PE, asthma, GERD, back pain, liver steatosis ?The patient presented to the Weight Management Program with significant obesity that was negatively impacting the patient's comorbidities as listed above.? The program is a phased program with a special focus on preoperative medical weight management to promote substantial weight loss and prepare the patients for the second phase of the program: bariatric surgery. The patient participated in an intensive weekly lifestyle ?intervention and exercise program during which the patient ?has lost between the initial office visit and the last preoperative visit 35lbs, or 11.6% of initial actual body weight. It was deemed appropriate for the patient to now have bariatric surgery. In light of the current Covid-19 pandemic and the well documented strong association of obesity and increased risk of worse outcomes if infected with Covid-19 (REFERENCES:https://pubmed.ncbi.nlm.nih.gov/63227917/,?https://pubmed.ncbi.nlm.nih.gov/22504866/), any delay in undergoing bariatric surgery may lead to the patient's worsening health condition and increased?risk of more severe Covid-19 disease if infected. In addition a recent?study from [facility] published in [facility] Surgery on 11/06/2021 ([email or web address]/[email or web address] [email or web address]) found that, among patients with obesity, substantial weight loss achieved with surgery was associated with improved outcomes of COVID-19 infection. The findings suggest that obesity can be a modifiable risk factor for the severity of COVID-19 infection. In addition, the patient met the BMI-criteria for bariatric surgery based on the BMI on initial presentation. The patient should not be penalized for achieving such weight loss because ?it is not sustainable long-term without surgical intervention and it was achieved in preparation for bariatric surgery ?under my direction and based on my published research ([email or web address]).pdf and?https://www.soard.org/article/[email or web address](88)31686-X/pdf) ?that a 10% preoperative weight loss improves long-term weight loss after surgery and reduces perioperative complications.? Insurance carriers such as [facility] have endorsed my recommendations ?and have included in their policies criteria to include a 10% preoperative weight loss requirement. PROCEDURE: Esophago-gastroscopy, laparoscopic sleeve gastrectomy and laparoscopic gastropexy INDICATIONS: This is a 54 year-old female who was electively scheduled for laparoscopic, possibly open sleeve gastrectomy. The risks and complications of the procedure were discussed with the patient in advance, particularly the possibility of ; pulmonary embolism; staple line leak; bleeding; GERD; cardiac, pulmonary, or renal complications; as well as long-term problems such as insufficient weight loss, vitamin deficiency, strictures, or ulcers. The patient understood all the risks, and was in agreement to proceed with surgery. DESCRIPTION OF PROCEDURE: After informed consent was obtained from the patient, the patient was given preoperative antibiotics, and was transferred to the operating room. After successful induction of general anesthesia, pneumatic compression devices were placed on both lower extremities. An upper endoscopy was performed next. The oropharynx and esophagus appeared to be within normal limits. There was no diaphragmatic hernia present. The stomach was entered. Then after all fluid and air were suctioned and the stomach was fully decompressed, the scope was withdrawn and secured in the mid esophagus. The patient was then prepped and draped in the usual sterile manner, and abdominal access was established at the right upper quadrant with the Golden technique. A 12 mm blunt port was inserted, and the abdomen was insufflated with CO2 to a pressure of 15 mmHg. Under direct visualization, additional ports were placed, specifically two 5 mm Versi-step ports to the left upper quadrant, and a 5 mm Versi-Step port to the right upper quadrant. 1% lidocaine plain was used to infiltrate all port sites as well as all fascia defects. Following that, the patient was placed in a steep reverse Trendelenburg position. An additional 5 mm port was placed to the right flank for the Mediflex retractor that was used to retract the left lobe of the liver. The gastro-esophageal fat pad was opened with the ultrasonic device (Thjserbeat, Olympus) and the anterior esophagus and hiatus were exposed. The angle of His was opened with the ultrasonic device the fundus of the stomach from any diaphragmatic and splenic attachments. I then opened the gastrocolic ligament between the transverse colon and the greater curvature of the stomach with the ultrasonic device to enter the lesser sac and facilitate the ligation of the short gastric vessels. I started at a mid-point along the greater curvature and using the Thunderbeat, all short gastric vessels were divided all the way to the angle of His until the left abhishek was completely dissected at its entirety. I then divided the gastro-colic ligament distally to a distance of about 3-4 cm proximal to the pylorus. The stomach was then divided transversely with one Endo ROSA-45 purple and four ROSA-60 articulating purple loads using the [employer] stapler and loads. Every effort was made that the gastric sleeve had a tubular shape and an even caliber throughout. Once the sleeve resection was completed, the staple line of the gastric sleeve was reinforced with Hemoclips. The resected stomach was retrieved without difficulty from the Golden port. A gastropexy was then performed in order to prevent postoperative GERD and partial gastric volvulus. Several interrupted 2.0 Surgidac sutures were placed between the sleeve's staple line and the previously divided greater omentum and gastro-colic ligament using the Endo-Stitch device. ?An upper endoscopy was performed. There was no narrowing at the GE junction. The scope was easily advanced all the way to the pylorus which was clearly visualized. There was no narrowing anywhere and the sleeve's caliber was even throughout. The sleeve's staple line was inspected and there was no evidence of ischemia, bleeding or dehiscence. At that point the gastroscope was withdrawn from the patient?s mouth while we were decompressing the bowel and the stomach from any remaining air. I looked into the lesser sac to see how the sleeve was situating and it was situating well. There was no bleeding from the staple line, spleen, or short gastric vessels. The Mediflex retractor was removed, and the undersurface of the liver was inspected and there was no bleeding. The patient was placed in supine position. I closed the fascial defect of the 12 mm port site with a figure of eight #1 Polysorb suture. Then 30cc Ropivacaine plain with 10 mg of Dexamethasone were used to infiltrate the fascial closure as well as all skin incisions. At this point, the abdomen was deflated, all ports were removed under direct vision, and no bleeding was noted from any of the port sites. The skin incisions were irrigated with saline and were closed with 4-0 absorbable monofilament sutures. Steri-Strips and OpSites were used to cover all incisions. The patient was extubated and was transferred in stable condition to the recovery room for further care. I was present and performed all weaver parts of the procedure. Ms. Sainibrendon was the day care assistant. There were no residents to assist with this case. Scott Garcia MD, PhD, FACS Surgeon: Mazin Garcia MD Anesthesia: GETA, local and other (TAP block) Was an Center Maker Hand used for this Procedure?: No Center Maker Hand: Anna Tillman Estimated blood loss (mL): 10 IV fluids (mL): 1,800 Urine output (mL): 0 (No Scott to record output) Pathology: other (1) Stomach, 2) gastro-esophageal fat pad) Condition: stable Disposition: PACU
--- NOTE | 2025-07-15 07:37 | PM.PNGS ---
Subjective Subjective Date of Service: 07/16/25 Interval history: Feels well. Mild incisional pain. She is tolerating phase 1 bariatric diet Physical Exam Vital Signs: Vital Signs: Last Vital Signs Temp 98.5 F 07/15/25 06:30 Pulse 79 07/15/25 06:30 Resp 17 07/15/25 06:30 BP 114/68 07/15/25 06:30 Pulse Ox 99 07/15/25 06:30 O2 Del Method Room Air 07/15/25 06:30 BMI result Body Mass Index 41.9 GI: Inspection: Yes normal to inspection, Yes incision (clean, dry and intact) and Yes obesity Palpation (GI): Soft to palpation Extrem: Right lower extremity: normal to inspection (no calf tenderness) Left lower extremity: normal to inspection (no calf tenderness) Objective Data Active Medications Albuterol Sulfate (Albuterol Sulfate (0.083%) 2.5 Mg/3 Ml Vial.Neb) 2.5 mg INHALE ONCE PRN PRN Reason: Shortness of Breath/Wheezing Lactated Ringer's (Lr) 1,000 mls @ 100 mls/hr IVCONT .Q10H [facility] Last Admin: 07/15/25 07:34 Dose: 100 mls/hr Documented By: DELORES Lactated Ringer's (Lr) 1,000 mls @ 999 mls/hr IV .Q1H1M [facility] Stop: 07/15/25 08:15 Last Admin: 07/15/25 06:29 Dose: 999 mls/hr Documented By: DELORES Vancomycin HCl (Vancomycin/Ns) 2,000 mg in 500 mls @ 250 mls/hr IV PREOP ONE Stop: 07/15/25 08:31 Last Admin: 07/15/25 06:44 Dose: 250 mls/hr Documented By: DELORES Labs 07/16/25 05:46 07/16/25 05:46 Procedures Date of Service Date of Service: 07/16/25 Progress Note: A&P Assessment and plan (1) Morbid obesity: Status: Acute Assessment and Plan: s/p laparoscopic sleeve gastrectomy and gastropexy Doing well Will check am labs and if OK the patient will be discharged home (2) Back pain: Status: Acute (3) Asthma: Status: Acute (4) Pulmonary embolism: Status: Acute (5) DVT (deep venous thrombosis): Status: Acute (6) GERD (gastroesophageal reflux disease): Status: Acute (7) S/P laparoscopic sleeve gastrectomy: Status: Acute Time Spent With Patient Time: Total time managing care of this patient today ____ minutes. Quality Stroke Does the patient have a stroke diagnosis?: No VTE Prior VTE?: Yes VTE Risk Level:: Surgical - moderate VTE Device Contraindication: N/A - Device Ordered VTE Drug Contraindication: Treatment Not Indicated
--- NOTE | 2025-07-15 10:16 | PM.DS ---
DS: Providers Provider Date of Service: 07/16/25 Date of admission: 07/15/25 06:01 Date of discharge: 07/16/25 Primary care physician: Val Hawley PA-C DS: Diagnosis Discharge Diagnosis (1) Morbid obesity: Status: Acute (2) Back pain: Status: Acute (3) Asthma: Status: Acute (4) Pulmonary embolism: Status: Acute (5) DVT (deep venous thrombosis): Status: Acute (6) GERD (gastroesophageal reflux disease): Status: Acute (7) S/P laparoscopic sleeve gastrectomy: Status: Acute DS: Summary Hospital Course Hospital Course: ADMITTING DIAGNOSIS: morbid obesity, GERD, fatty liver, DVT, PE, back pain, lymphedema, asthma DISCHARGE DIAGNOSIS: same, s/p laparoscopic sleeve gastrectomy and gastropexy PAST SURGICAL HISTORY:? Hx of eye surgery Hx of cholecystectomy Hx of hysterectomy, total PROCEDURE: upper endoscopy, laparoscopic sleeve gastrectomy and gastropexy DISCHARGE SUMMARY: History of Present Illness: The patient is a?54 year-old woman with a BMI of?41.9 kg/m2 and associated co-morbidities as described above. The patient had extensive work-up, lost?42.6 lbs preoperatively and was electively scheduled for laparoscopic, possible open sleeve gastrectomy and gastropexy. Risks and complications of the surgery were discussed with the patient in advance, particularly the possibility of , pulmonary embolism, anastomotic leak, bleeding, bowel injury, GERD, cardiac, renal or pulmonary complications. The patient understood all the risks and was in agreement with the surgical plan. She was placed on a fondaparinux bridge 5 days preoperatively and her Eliquis was held. Hospital Course: The patient underwent an uneventful laparoscopic sleeve gastrectomy with gastropexy on the day of admission. Postoperatively, the patient was transferred to the surgical floor. The patient received IV acetaminophen and IV Dilaudid for pain control. Patient was started on bariatric phase 1 diet POD #0. On postoperative day one, the patient was feeling well without nausea, vomiting, fevers, or tachycardia. The patient had some mild incisional pain and the abdomen was soft.? ? On the morning of postoperative day one, the patient was continued on 1 ounce of water or ice every half hour. During the day, the patient did fairly well, having some incisional pain, but able to ambulate adequately and to tolerate liquids well. Since the patient is doing well, we decided that the patient was ready to be discharged. The patient was given instructions to follow-up in office next week and to call the office for any fever over 101, persistent abdominal pain, nausea, vomiting, GERD, symptoms of DVT such as calf tenderness, or leg swelling, or pulmonary embolism such as chest pain or shortness of breath.? The patient was also instructed to drink 40-60 ounces of liquids per day using the 1-ounce cups. The patient had been given prescriptions for Tylenol for pain, Zofran prn for nausea, and pantoprazole and carafate previously. The patient was encouraged to ambulate and use the incentive spirometer. The patient was allowed to shower, but no baths, and encouraged to stay active at home. All of these instructions were given to the patient personally. All questions were answered and the patient understood all instructions, the instructions were also given to the patient in print. Time Attestation Discharge Coordination Time (in mins): 30 Quality: Safe Use of Opioids Does Pt have an Active Cancer Diagnosis on the Problem List?: No Quality: Stroke Does the patient have a stroke diagnosis?: No Physical Exam Vital Signs: Vital Signs: Last Vital Signs Temp 97.7 F 07/15/25 10:00 Pulse 81 07/15/25 10:15 Resp 18 07/15/25 10:15 BP 110/54 L 07/15/25 10:15 Pulse Ox 96 07/15/25 10:15 O2 Del Method Room Air 07/15/25 10:15 BMI result Body Mass Index 41.9 DS: Data Data Completed and Pending Pending studies at discharge: Pending at discharge 07/15/25 09:58 Surgical [PTH] Routine Discharge Plan Discharge Anticipated Discharge Date/Time: 07/15/25 10:10 Patient Disposition: Home, Self-Care Discharge Diagnosis: s/p laparoscopic sleeve gastrectomy with gastropexy Referrals: Val Hawley PA-C [Primary Care Provider, Family Practice] - 1 Week Discharge Medications: Continued sucralfate 100 mg/mL suspension 10 ml PO BID Qty: 600 2RF pantoprazole 40 mg tablet,delayed release (DR/EC) 40 mg PO DAILY Qty: 90 0RF ondansetron 4 mg tablet,disintegrating 4 mg PO Q12H Qty: 20 0RF Rx Instructions: Only take one every 12 hours as needed if you have nausea Held Eliquis 5 mg Tablet 5 mg PO BID Qty: 180 3RF Hold Instructions: Resume on 07/17/25. Only resume once cleared by Dr. Garcia fondaparinux 2.5 mg/0.5 mL syringe 2.5 mg subcut Q24H Qty: 5 0RF Hold Instructions: Resume on 07/15/25. Only resume once cleared by Dr. Garcia Discontinued thiamine HCl (vitamin B1) 100 mg tablet 100 mg PO DAILY Qty: 90 0RF psyllium husk [Fiber (psyllium husk)] 0.52 gram Capsule 0.52 g PO DAILY multivitamin Tablet 1 tab PO DAILY Discharge Orders: Discharge Order (Routine); Ordered 07/16/25 Ordered By: Mazin Garcia Activity on Discharge: No heavy lifting Stand Alone Forms: Patient Portal Discharge page Print Language: Bhutanese Care Plan Goals: weight loss Health Concerns: morbid obesity Plan of Treatment: No tub baths, sex or returning to work until discussed at first post op appointment. No alcohol, tobacco or illegal drug use. Continue to use incentive spirometer hourly while awake. Walk in home for 5- 10 minutes every 2 hours during the first week. Wear abdominal binder with activity. Follow all meal plan instructions from your bariatric surgeon. Review bariatric handbook and call with any questions. Discharge Instructions 1. Please call your doctor or come back to the emergency room should any new symptoms arise. 2. Activity: abstain from alcohol,? limited stair climbing, no bending, no driving, no exercise, no illicit substances, no lifting, no sex, no tub bath, no work. 4. Diet: follow your bariatric surgeon's recommendations for advancing diet. 5. Dressing Change/Wound Care: Your incisions are covered with waterproof dressings. You can shower with these and pat dry. Do not rub over dressings or incisions. If the area is tender, you may apply an ice pack for short intervals (no more than 20 minutes on, followed by at least 20 minutes off). Do not apply heat. Do not use creams, lotions, or topical antibiotics unless instructed to do so by your surgeon. 6. Call your doctor if: - Your temperature exceeds 101.5 F - You experience excessive pain or swelling - You have an unexpected reaction to medication - You have excessive bleeding - You experience continued vomiting/nausea - Your incision begins to separate - Your incision shows signs of infection such as increased redness, swelling, excessive pain, heat, or drainage (light blood or clear fluid is normal) General instructions: No lifting greater than 10 lbs for the next 6 weeks. No driving within 24 hours of taking narcotic pain medications. If you do not move your bowels in the next 2 days, please take milk of magnesia over the counter. Please follow the post op diet and do not advance your diet until instructed by your surgeon or until you are seen in the office in about 1 week. Please walk around your home every hour or two to prevent blood clots from forming in your legs. You do not need to wake from sleeping to walk. Please sleep in a bed or couch to prevent kinking at the hips and knees. Please take your incentive spirometer (your lung controller operations and hr manager) home with you and use it for the next few days to prevent pneumonias. You may shower; no hot tubs, baths or swimming pools. Please make sure you are consuming 40-60 ounces of total fluids per day. Avoid all carbonation. Please call the office with any questions or concerns such as increasing abdominal pain, fever, chills, shortness of breath, chest pain, leg pain or swelling, or redness or drainage from your incisions. Do not hesitate to contact the office with any questions at . The patient's medical history has been reviewed and they are considered low risk for post op DVT and therefore DVT prophylaxis is not considered necessary. Travel after surgery was reviewed. The patient has not disclosed any travel plans during the first 30 days after surgery and they have been advised that within the first 30 days after surgery any bus, plane, train or car travel over 2 hours in duration is contraindicated due to the possibility of developing blood clots from immobility. Any travel, needs to include periods of ambulation of 10 minutes in duration every 2 hours.? The patient was instructed to discuss any plans for travel during this period with their bariatric surgeon. Assessment: s/p laparoscopic sleeve gastrectomy with gastropexy Discharge Date/Time: 07/16/25 09:37
[2025-07-15 11:35] LABS: Anion Gap 15 (12-20); Blood Urea Nitrogen 9 mg/dL (9-16); Calcium 9.1 mg/dL (8.4-10.2); Carbon Dioxide 18 mmol/L (22-29); Chloride 110 mmol/L (96-108); Creatinine Clr Calc Pharmacy 113.1; Estimated Glomerular Filt Rate > 60; Potassium 4.7 mmol/L (3.3-5.1); Sodium 138 mmol/L (135-145)
--- NOTE | 2025-07-15 11:42 | PC.NURSE ---
Previous lab draw hemolyzed. Roof Service Technician at bedside for another lab draw. Pt tolerating well. Family in waiting room updated
--- NOTE | 2025-07-15 11:51 | PC.NURSE ---
Blood draw unsuccessful. Fingerstick performed and another draw will be attempted p xfer to Med Surg
[2025-07-15 12:19] LABS: Hematocrit 43.0 % (37.0-47.0); Hemoglobin 14.6 g/dl (12.0-16.0)
[2025-07-15 17:18] LABS: Glucose, Whole Blood 137 mg/dL (60-115)
[2025-07-16] MEDS: Lactated Ringers 1,000 ML 100 ML IVCONT (00:04)
[2025-07-16 03:06] VITALS: BP 114/59; PULSE 61; RESP 18; TEMP 36.4; O2SAT 95
[2025-07-16 06:48] LABS: Hematocrit 42.9 % (37.0-47.0); Hemoglobin 14.2 g/dl (12.0-16.0); Imm Gran Abs Auto 0.08 X10*3/uL (0.00-0.03); Imm Gran Pct Auto 1.0 % (0.0-0.4); Lymphocytes Absolute Auto 1.2 X10*3/uL (1.2-4.9); MANUAL DIFF FLAG SCAN; Mean Corpuscular HGB Conc 33.1 g/dl (31.0-35.0); Mean Corpuscular Hemoglobin 29.0 pg (27.0-33.0); Mean Corpuscular Volume 87.6 fL (80.0-98.0); NRBC Abs Auto 0.000 X10*3/uL (0.0-0.012); NRBC Pct Auto 0.0 /100WBC (0.0-0.2); PLT CLUMP 1; Red Blood Count 4.90 X10*6/uL (4.20-5.50); SCAN SMEAR FLAG 1
[2025-07-16 06:50] LABS: White Blood Count 7.7 X10*3/uL (4.8-10.8)
[2025-07-16 07:00] LABS: Anion Gap 15 (12-20); Blood Urea Nitrogen 9 mg/dL (9-16); Calcium 9.3 mg/dL (8.4-10.2); Carbon Dioxide 20 mmol/L (22-29); Chloride 110 mmol/L (96-108); Creatinine Clr Calc Pharmacy 143.8; Estimated Glomerular Filt Rate > 60; Potassium 4.1 mmol/L (3.3-5.1); Sodium 141 mmol/L (135-145)
[2025-07-16 07:21] VITALS: BP 113/55; PULSE 71; RESP 16; TEMP 36.6; O2SAT 94
--- NOTE | 2025-07-16 08:04 | HO.POSTANES ---
Post Anesthesia Evaluation Post Anesthesia Evaluation Date of Service: 07/16/25 Vital Signs: Vital Signs Temp Pulse Resp BP Pulse Ox O2 Del Method 07/16/25 07:21 97.9 F 71 16 113/55 L 94 Room Air 07/16/25 03:06 97.5 F 61 18 114/59 L 95 Room Air 07/15/25 23:25 97.5 F 55 18 111/58 L 94 Room Air Anesthesia: General Mental Status: Awake Pain Control: Satisfactory Nausea/Vomiting: None Hydration: Adequate Anesthesia-Related Issues: No Anes. Related Issues
--- NOTE | 2025-07-16 09:28 | MHC.CM.PN ---
Patient dc'd home self care via private transport prior to CM assessment.
== END 2025-07-16 09:37 | disposition home or self-care (01) | DRG 403 ==
LOC: HO.SSSA 10:10 → HO.S3 11:10
PROVIDERS: Physician Assistant Surgical; Admitting Provider Surgery; PCP Physician Assistant; Visit Provider Surgery
PROC: 0DB64Z3 Excision of Stomach, Percutaneous Endoscopic Approach, Vertical (ICD-10-PCS; CPT 43845; principal; 2025-07-15 07:30)
DX: E66.01 Morbid (severe) obesity due to excess calories (principal); K76.0 Fatty (change of) liver, not elsewhere classified; J45.909 Unspecified asthma, uncomplicated; K21.9 Gastro-esophageal reflux disease without esophagitis; M54.9 Dorsalgia, unspecified; Z68.41 Body mass index [BMI] 40.0-44.9, adult; Z86.718 Personal history of other venous thrombosis and embolism; Z86.711 Personal history of pulmonary embolism; Z79.01 Long term (current) use of anticoagulants; Z79.899 Other long term (current) drug therapy
CPT/HCPCS: 36415; 80048; 82947; 85014; 85018; 85025; 86850; 86900; 86901; 88304; 88305; 88307; 88342; A4649; C9145; J0131; J1100; J1171; J1308; J2003; J2250; J2405; J2704; J2795; J3010; J3373; J7120

== ENCOUNTER → 2025-07-15 06:01 | Outpatient (BNV) | payer OTHER, SELFPAY | PROVIDERS: Admitting Provider Surgery; PCP Physician Assistant; Visit Provider Surgery | DX: E66.01 Morbid (severe) obesity due to excess calories (principal); Z68.41 Body mass index [BMI] 40.0-44.9, adult | CPT/HCPCS: 43659; 43775; 99024 ==

== ENCOUNTER 2025-07-20 14:48 | Outpatient (AMB) | payer OTHER, SELFPAY ==
--- OUTSIDE RECORDS SUMMARY | 2024-01-23 06:00 | XMS_ITS ---
Author Organization [facility] [address] Address [address] [place] [address] Care Team Providers Care Data Collection Associate Name Role Phone Aimee Heard Unavailable [phone] TIM VEGA Unavailable [phone] REASON FOR VISIT 2.5 MG Encounters Encounter Location Date Provider Diagnosis [facility] [address] [address] 01/23/2024 TIM VEGA Plan Of Treatment No Information Progress Notes * Aurelia CONNORSGigiB:1970 (54 yo F)Acc No.[id number]:01/23/2024 Progress Note Patient: Corrine SIMMONS Provider: Anuradha Vega MD :1970 A ge:53 Y S ex:Female Date:01/23/2024 Address:[address] [place], [place] [id number] Subjective: * Chief Complaints: * 1 . 2.5 MG. * Medical History: Objective: * Vitals: Assessment: Plan: * Treatment: * Procedure Codes: 9 9199 NO SHOW OFFICE VISIT Care Plan: * Problems: * Images: Billing Information: * Visit Code: * Procedure Codes: 19491 NO SHOW OFFICE VISIT. Care Plan Details* * Electronic signature of MERISSA VEGA MD on 07/20/2025 at 05:15 PM EDT Sign off status: Pending * Provider: Anuradha Vega MD Date: 01/23/2024 Generated for Printi ng/Fachristig/eTransmitting on: 0 07/20/2025 05:15 PM EDT
--- OUTSIDE RECORDS SUMMARY | 2024-02-20 05:15 | XMS_ITS ---
Author Organization [facility] [address] Address [address] [place] [address] Care Team Providers Care Sleever Name Role Phone Aimee Heard Unavailable [phone] REASON FOR VISIT with [facility] Encounters Encounter Location Date Provider Diagnosis [facility] [address] [address] 02/20/2024 Aimee Heard Plan Of Treatment No Information Progress Notes * Jenelle CONNORSB:1970 (54 yo F)Acc No.[id number]:02/20/2024 Patient: Corrine SIMMONS Provider: Karly Heard PA-C :1970 A ge:53 Y S ex:Female Date:02/20/2024 Address:[address] [place], [place] [phone] Subjective: * Chief Complaints: * 1 . with [facility]. * Medical History: Objective: * Vitals: Assessment: Plan: * Treatment: * Images: Billing Information: * Visit Code: * Procedure Codes: * Electronic signature of Aimee Heard PA-C on 07/20/2025 at 05:14 PM EDT Sign off status: Pending * Provider: Karly Heard PA-C Date: 02/20/2024 Generated for Sherrill brown/Mauricio/eTsaranyasmitting on: 07/20/2025 05:14 PM EDT
--- NOTE | 2025-07-20 14:56 | A.OFFVIS_ITS ---
Intake Visit Reasons: PRN follow up for Chronic thombosis issue Intake Note: Patient presents for chronic thrombosis issue. Right foot has been cold (Fourth and fifth toe), numbness and tingling. Patient is on Eliquis. States the thrombosis is in the right thigh. Accompanied by: Self / Same As Patient Allergies nickel Allergy (Intermediate, Verified 07/20/25 14:57) Hives amoxicillin (From Augmentin) Allergy (Mild, Verified 07/20/25 14:57) Vomiting clavulanic acid (From Augmentin) Allergy (Mild, Verified 07/20/25 14:57) Vomiting levofloxacin (From Levaquin) Adverse Reaction (Severe, Verified 07/20/25 14:57) Anaphylaxis HPI HPI PRN follow up for Chronic thombosis issue: Details: The patient is a 54-year-old female presenting with right lower extremity discomfort. She underwent a right great saphenous venous seal on November 20, 2024, and has since experienced discomfort in the right lower extremity. An ultrasound was performed, and she has been on Eliquis for anticoagulation therapy. The patient reports symptoms of Raynaud's phenomenon, including episodes where the fourth and fifth toes become white and cool. These symptoms occur a couple of times a month and are more noticeable when walking, with one limb feeling cooler than the other. She has a history of deep vein thrombosis, with thrombosis noted in the distal femoral and popliteal regions. The patient is currently on Eliquis, which she resumed after recent surgery. The patient has a history of pulmonary embolism, which contributes to her concern about her current symptoms. She underwent bariatric gastric sleeve surgery and has lost a total of 50 pounds, which has improved her vascular health but made her veins more prominent. [facility] Medical History GERD (gastroesophageal reflux disease) Anesthesia complication Endometrial cancer Asthma Pulmonary emboli Fatty liver Back pain Morbid obesity Pulmonary nodule 1 cm or greater in diameter DVT (deep venous thrombosis) Lupus Surgical History H/O colonoscopy History of esophagogastroduodenoscopy (EGD) Hx of eye surgery Hx of cholecystectomy Hx of hysterectomy, total Family History Mother Hypothyroid Father Diabetes Social History Household Members: None Housing: House Are you a primary regular senior care provider to a significant other at home: No Do you presently have visiting nurse or other home services: No Alcohol intake: current Alcohol intake frequency: does not drink Patient Tobacco Use Status: Never used Tobacco service: No Current occupational status: employed Review of Systems Const All systems reviewed & are unremarkable except as noted in HPI and below Reports no additional complaints ENT Reports Normal hearing present Card Denies chest pain, Denies chest pain at rest, Denies chest pain with activity and Denies pedal edema Resp Denies cough GI Denies abdominal pain Musc Denies abnormal gait, Denies muscle cramps and Denies radiating pain into limb Skin/Breast Denies skin ulcer and Denies wounds Neuro Reports Normal hearing present and Denies abnormal gait Psych Reports no additional complaints Physical Exam Const General: cooperative, healthy appearing and comfortable Orientation/consciousness: oriented to person, oriented to place and oriented to time HEENT Head: Yes normal to inspection Neck Neck: Yes normal visual inspection Carotids: no bruits Chest Chest palpation & inspection: normal inspection of the chest Resp Effort & Inspection: normal respiratory effort and able to speak in complete sentences Auscultation: clear to auscultation bilaterally, no crackles, no rales, no rhonchi and no wheezes Cardio Other: Right lower extremity palpable dorsalis pedis and posterior tibial pulses Rate: regular rate Rhythm: regular rhythm Heart sounds: S1 normal heart sound present and S2 normal heart sound present Bruits: no carotid bruits Peripheral pulses: Peripheral pulses 2+ throughout GI Inspection: Yes normal to inspection Skin Wounds: no wounds Hair: normal Neuro General: oriented to person, oriented to place and oriented to time Cranial nerves: Yes CN's II-XII intact bilaterally and Yes Normal hearing present Cognition (Neuro): normal cognition Motor exam (neuro): 5/5 motor strength present throughout Extrem Other: venous exam: No significant superficial varicosities or spider telangiectasias, minimal edema General: No clubbing, No cyanosis and No edema Psych Appearance: grossly normal Mental Status: mental status grossly normal Speech and movement: Normal speech and movement present Results Reviewed Results Reviewed: Venous ultrasound from 04/13/2025 chronic thrombus in the mid to distal SFV popliteal of the right lower extremity. Assessment & Plan Assessment & Plan (1) DVT (deep venous thrombosis): Comment: w/chronic thrombosis-taking eliquis-follows w/Vascular, Pulmonology & Hematology Code(s): I82.409 - Acute embolism and thrombosis of unspecified deep veins of unspecified lower extremity Category: Medical Qualifiers: DVT location: lower extremity Affected thrombotic vein of extremity: popliteal Chronicity: acute Laterality: right Qualified Code(s): I82.431 - Acute embolism and thrombosis of right popliteal vein Plan: In short do not believe that there is any significant findings related to this discoloration on the right lateral aspect of the foot. From an arterial perspective she does have palpable dorsalis pedis and posterior tibial pulses. In addition I do think that her venous ultrasound findings are chronic. She is going to be maintained on Eliquis. There may be changes as she most recently has undergone bariatric surgery. I did discuss the importance of hydration and maintaining a good vitamin status after this entire procedure. She is being maintained on Eliquis. We did discuss routine conservative measures including hand and foot protection reducing caffeine intake reduction of stressors. She will follow up with us on an as-needed basis. Plan Patient was informed and verbally consented to the use of an ambient scribe for clinic note documentation during this visit. Patient Instructions: - Continue taking Eliquis as prescribed for anticoagulation. - Monitor symptoms of Raynaud's phenomenon and report any significant changes. - Maintain weight loss through adherence to dietary recommendations and regular follow-up with the bariatric team. Coding Level of Care Code Est Pt Level 4 (68334) Complex EM visit Add On G2211 Diagnoses Acute deep vein thrombosis (DVT) of popliteal vein of right lower extremity I82.431 DVT location: lower extremity Affected thrombotic vein of extremity: popliteal Chronicity: acute Laterality: right
--- OUTSIDE RECORDS SUMMARY | 2025-07-20 17:15 | XMS_ITS | Clinical Summary ---
Author Organization [facility] Address [address] [place] [address] Care Team Providers Care Lieutenant Shift Supervisor Name Role Phone Anna Blakely MD Primary [...] EDT) Triglycerides 77 <150 mg/dL CONVERSION FROM [facility] Cholesterol 202(H) <200 mg/dL CONVERSION FROM [facility] LDL-CHOL CALC (CNV) 137 mg/dL CONVERSION FROM [facility] Comment: Reference range: >20 years of age Acceptable: <130 mg/dL Borderline: 130-159 mg/dL High: >159 mg/dL National Cholesterol Education Program Guidelines Reference range: >20 years of age Acceptable: <130 mg/dL Borderline: 130-159 mg/dL High: >159 mg/dL National Cholesterol Education Program Guidelines HDL Cholesterol 50 40 - 60 mg/dL CONVERSION FROM [facility] Comment: Cardiovascular risk <40 mg/dL High risk >60 mg/dL Low risk 07/04/2020 1:58 PM EDT 07/04/2020 1:58 PM EDT John Newman MD LAB BLOOD ORDERABLES Bea l Result CONVERSION FROM [facility] from Last 3 Months or Most Recently Relevant to Health Maintenance Advance Directives Documents on File Type Date Recorded Patient Food Preparation Supervisor Expl anation Health Care Proxy 04/13/2022 8:32 AM Health Care Proxy Advance Directive 08/17/2020 12:00 AM [facility] NCE DIRECTIVE: 08/09/2020 Auth to Disclose PHI Care Teams Lieutenant Shift Supervisor Relationship Specialty Start Date End Date Anna Blakely MD [address] [place] [id number] PCP - General 07/06/22
--- OUTSIDE RECORDS SUMMARY | 2025-07-20 17:15 | XMS_ITS | Patient Health Record ---
Author Organization [facility] [address] Address [address] [place] [address] Care Team Providers Care Ampoule Filler And Sealer Name Role Phone Aimee Heard Unavailable [phone] Allergies Allergen (clinical drug ingredient) Drug/Non Drug [...] Status Risk Notes Problem Morbid obesity (disorder) (437536353) Morbid (severe) obesity due to excess calories (E66.01) Active confirmed Problem Body mass index 40+ - severely obese (267657124) Body mass index [BMI] 45.0-49.9, adult (Z68.42) Active confirmed Problem Adrenal mass (078357402) Adrenal mass (E27.8) Active confirmed Problem Cyst of thyroid (74721318) Thyroid cyst (E04.1) Active confirmed Plan Of Treatment No Information Insurance Providers Payer Name Payer Address Payer Phone Subscriber Number Group Number Insured Name Patient Relationship to Insured Coverage Start Date Coverage End Date [place] [address] [id number] [place] [id number] Corrine Michaels Self - patient is the [...]
== END 2025-07-20 15:12 | disposition home or self-care (01) ==
LOC: HO.HVS 14:48
PROVIDERS: PCP Physician Assistant; Visit Provider Surgery Vascular Surgery
DX: I82.431 Acute embolism and thrombosis of right popliteal vein (principal)
CPT/HCPCS: 99214

== ENCOUNTER 2025-07-21 13:00 | Outpatient (AMB) | payer OTHER, SELFPAY ==
--- OUTSIDE RECORDS SUMMARY | 2024-01-23 06:00 | XMS_ITS ---
Author Organization [facility] [address] Address [address] [place] [address] Care Team Providers Care Fitness Coach Name Role Phone Aimee Heard Unavailable [phone] TIM VEGA Unavailable [phone] REASON FOR VISIT 2.5 MG Encounters Encounter Location Date Provider Diagnosis [facility] [address] [address] 01/23/2024 TIM VEGA Plan Of Treatment No Information Progress Notes * Aurelia CONNORSGigiB:1970 (54 yo F)Acc No.[id number]:01/23/2024 Progress Note Patient: Corrine SIMMONS Provider: Anuradha Vega MD :1970 A ge:53 Y S ex:Female Date:01/23/2024 Address:[address] [place], [place] [phone] Subjective: * Chief Complaints: * 1 . 2.5 MG. * Medical History: Objective: * Vitals: Assessment: Plan: * Treatment: * Procedure Codes: 9 9199 NO SHOW OFFICE VISIT Care Plan: * Problems: * Images: Billing Information: * Visit Code: * Procedure Codes: 32905 NO SHOW OFFICE VISIT. Care Plan Details* * Electronic signature of MERISSA VEGA MD on 07/21/2025 at 03:59 PM EDT Sign off status: Pending * Provider: Anuradha Vega MD Date: 0 01/23/2024 Generated for Printi ng/Faxing/eTransmitting on: 0 07/21/2025 03:59 PM EDT
--- OUTSIDE RECORDS SUMMARY | 2024-02-20 05:15 | XMS_ITS ---
Author Organization [facility] [address] Address [address] [place] [address] Care Team Providers Care General Lithographic Worker Name Role Phone Aimee Heard Unavailable [phone] REASON FOR VISIT with [facility] Encounters Encounter Location Date Provider Diagnosis [facility] [address] [address] 02/20/2024 Aimee Heard Plan Of Treatment No Information Progress Notes * Jenelle CONNORSB:1970 (54 yo F)Acc No.[id number]:02/20/2024 Patient: Corrine SIMMONS Provider: Karly Heard PA-C :1970 A ge:53 Y S ex:Female Date:02/20/2024 Address:[address] [place], [place] [phone] Subjective: * Chief Complaints: * 1 . with [facility]. * Medical History: Objective: * Vitals: Assessment: Plan: * Treatment: * Images: Billing Information: * Visit Code: * Procedure Codes: * Electronic signature of Aimee Heard PA-C on 07/21/2025 at 03:59 PM EDT Sign off status: Pending * Provider: Karly Heard PA-C Date: 0 02/20/2024 Generated for Sherrill brown/Mauricio/eTransmitting on: 0 07/21/2025 03:59 PM EDT
--- NOTE | 2025-07-21 13:17 | A.OFFVIS_ITS ---
VS Expanded 07/21/25 13:29 BP 130/74 Blood Pressure Location Rt brachial Blood Pressure Position Sitting Pulse 79 Pulse Source Pulse Oximeter Temp 96.9 F Temperature Source Temporal Artery Scan Pulse Oximetry 98 Oxygen Delivery Method Room Air Height 5 ft 6 in Weight 253 lb 12.8 oz BMI 41.0 Body Fat % 49.6 Body Fat Mass 125.8 Fat Free Mass 127.8 Visceral Fat Rating 15.0 Body Water % 35.9 Body Water Mass 91.0 Muscle Mass/Score 121.4 Basal Metabolic Rate/Score 1,825 Intake Visit Reasons: OV PO LSG 07/15/25 -see note Allergies nickel Allergy (Intermediate, Verified 07/21/25 13:17) Hives amoxicillin (From Augmentin) Allergy (Mild, Verified 07/21/25 13:17) Vomiting clavulanic acid (From Augmentin) Allergy (Mild, Verified 07/21/25 13:17) Vomiting levofloxacin (From Levaquin) Adverse Reaction (Severe, Verified 07/21/25 13:17) Anaphylaxis Medication List - Last Reconciled 07/21/25 by PHUONG Robert apixaban (Eliquis) 5 mg PO BID Held on 07/16/25. Instructions: Resume on 07/17/25. Only resume once cleared by Dr. Garcia fondaparinux 2.5 mg (0.5 mL) subcut Q24H Held on 07/16/25. Instructions: Resume on 07/15/25. Only resume once cleared by Dr. Garcia ondansetron 4 mg PO Q12H pantoprazole 40 mg PO DAILY sucralfate 10 mL PO BID HPI Comments Details: Pt is s/p LSG 07/15/2025. No pain. No nausea. Tolerating 3 Ghost/Ryze shakes, 1 scoop each in 8oz liquid. Hydration is adequate. Restarted Eliquis yesterday. [facility] Medical History GERD (gastroesophageal reflux disease) Anesthesia complication Endometrial cancer Asthma Pulmonary emboli Fatty liver Back pain Morbid obesity Pulmonary nodule 1 cm or greater in diameter DVT (deep venous thrombosis) Lupus Surgical History (Updated 07/21/25 @ 13:18 by Yokasta Valdez CMA) S/P gastric sleeve procedure H/O colonoscopy History of esophagogastroduodenoscopy (EGD) Hx of eye surgery Hx of cholecystectomy Hx of hysterectomy, total Family History Mother Hypothyroid Father Diabetes Social History Household Members: None Housing: House Are you a primary manager home healthcare to a significant other at home: No Do you presently have visiting nurse or other home services: No Alcohol intake: current Alcohol intake frequency: does not drink Patient Tobacco Use Status: Never used Tobacco service: No Current occupational status: employed Physical Exam Const General: cooperative, comfortable and no acute distress Orientation/consciousness: patient oriented x3 GI Other: soft, nontender, nondistended, steri-strips c/d/i Neuro General: patient oriented x3 Assessment & Plan Assessment & Plan (1) Morbid obesity: Code(s): E66.01 - Morbid (severe) obesity due to excess calories Category: Medical (2) S/P laparoscopic sleeve gastrectomy: Code(s): Z98.84 - Bariatric surgery status Category: Surgical Plan May shower tomorrow but no bath or submersion of abdomen in water. May start exercise tomorrow.? No abdominal exercises x 6 weeks. Abdominal binder for the next 2 weeks with activity or exercise. Continue meal plan per Dr Tapia until next f/u in 5 weeks. Reviewed pantoprazole and carafate dosing. Reminded of the pace of drinking 2 mL/min or 1oz per 15 min. Will be emailed link for post op video for review.
[2025-07-21 13:29] VITALS: BP 130/74; PULSE 79; TEMP 36.1; O2SAT 98; BMI 41.0
--- OUTSIDE RECORDS SUMMARY | 2025-07-21 15:59 | XMS_ITS | Clinical Summary ---
Author Organization [facility] Address [address] [place] [address] Care Team Providers Care Earring Maker Name Role Phone Amee De La Cruz [facility] Primary Care Provider Source Comments PLEASE [...] right (CMS & HHS-HCC),Bilater al pulmonary embolism ([facility]) Take 1 Tablet by mouth once daily 90 Tablet 1 12/18/2022 Active traZODone (DESYREL) 50 mg tabletIndication s:Sleep disturbance Take 0.5-1 Tablets by mouth nightly at bedtime as needed for sleep 30 Tablet 01/15/2023 Active Active Problems Problem Noted Date Diagnosed Date Systemic lupus erythematosus , unspecified SLE type, unspecified organ involvement status ([facility] & HHS-HCC) 09/10/2022 Bilateral pulmonary embolism ([facility]) Overview (09/10/2022): Dx April 2022, had a [...] 11/11/2024 09/10/2022 Depression Annual Screen 11/11/2024 12/01/2021 [id number] ( season) 2025 11/01/2021, 11/28/2020, 11/07/2020 Imm-Influenza [...] purpose. For additional information please refer to http://education.[employer].KnowledgeTree/faq/MAU247 (This link is being provided for informational/ educational purposes only.) The performance of this assay has not been clinically validated in patients less than 2 years old. 03/30/2019 2:36 PM EDT [facility] Provider Default LAB - BLOOD DRAW [...] DATA CONVERSION 03/30/2019 2:36 PM EDT [facility] - BLOOD DRAW Final Res ult DATA CONVERSION from Last 3 Months or Most Recently Relevant to Health Maintenance Insurance [employer] Care Teams Earring Maker Relationship Specialty Start Date End Date Amee De La Cruz FNP [address] [place] [address] PCP - General 11/13/23
--- OUTSIDE RECORDS SUMMARY | 2025-07-21 15:59 | XMS_ITS | Patient Health Record ---
Author Organization [facility] [address] Address [address] [place] [address] Care Team Providers Care Family Day Carer Name Role Phone Aimee Heard Unavailable [phone] Allergies Allergen (clinical drug ingredient) Drug/Non Drug [...] Status Risk Notes Problem Morbid obesity (disorder) (696065318) Morbid (severe) obesity due to excess calories (E66.01) Active confirmed Problem Body mass index 40+ - severely obese (544348758) Body mass index [BMI] 45.0-49.9, adult (Z68.42) Active confirmed Problem Adrenal mass (050753384) Adrenal mass (E27.8) Active confirmed Problem Cyst of thyroid (21975812) Thyroid cyst (E04.1) Active confirmed Plan Of Treatment No Information Insurance Providers Payer Name Payer Address Payer Phone Subscriber Number Group Number Insured Name Patient Relationship to Insured Coverage Start Date Coverage End Date [place] [address] [id number] [place] [id number] Corrine Michaels Self - patient is the [...]
--- OUTSIDE RECORDS SUMMARY | 2025-07-21 15:59 | XMS_ITS | Clinical Summary ---
Author Organization [facility] Address [address] [place], [place] [id number] Phone Care Team Providers Care Hospice Clinical Supervisor Name Role Phone Val Hawley Primary Care Provider [phone] Referring, Not Required Unavailable Unavaila ble Immunizations [...] SEE NARRATIVE - 02/14/2024 10:00 AM EDT [address] [address] Bottle Hop: Corrine Nguyen MD GLASS DECORATOR Cytology Report FINAL DIAGNOSIS A. PAP SMEAR [...] 59, 66, 68) Note: Testing performed by [facility] HR-HPV analysis. Clinical correlation is advised. This HPV test was performed at [facility], [address] [place] [address]. This test has been FDA approved for both SurePath and ThinPrep cervical cytology specimens. The accuracy and precision of this test for all other specimen sources has been verified in the Cytopathology Laboratory of the [facility] and has not been cleared or approved by the U.S. Food and Drug Administration. Clinical correlation is advised. CLINICAL HISTORY Date of Last Menstrual Period: Not Provided Menstrual History: Post Menopausal Other Clinical Conditions: Screening Pap SPECIMEN SOURCE A: PAP SMEAR (SUREPATH) CE Patient Name: SIRISHAHAYLEY CORRINE : 1970 (Age: 53) Sex: F Institution: [facility] Location: [facility] Date of Collection: 02/06/2024 Date of Reported: 02/14/2024 10:00 Results to: Iza RICHTERP Iza Jerez FRONT OFFICE SPECIALIST CYTOLOGY ORDERABLES Final Result SEE NARRATIVE from Last 3 Months or Most Recently Relevant to Health Maintenance [place] [address] [place] [address] [employer] [place] [address] [employer] [place] [place] [address] [employer] Care Teams Hospice Clinical Supervisor Relationship Specialty Start Date End Date Val Hawley PA [address] [place] [id number] PCP - General Physician Area Manager 03/26/24 Referring, Not Required 03/26/24 Additional Source Comments The information contained in this document represents components of the legal health record. It is not the complete legal health record.[facility]
--- OUTSIDE RECORDS SUMMARY | 2025-07-21 15:59 | XMS_ITS | Clinical Summary ---
Author Organization [facility] Address [address] [place] [address] Care Team Providers Care Print Shop Chief Clerk Name Role Phone Anna Blakely MD Primary [...] EDT) Triglycerides 77 <150 mg/dL CONVERSION FROM [facility] Cholesterol 202(H) <200 mg/dL CONVERSION FROM [facility] LDL-CHOL CALC (CNV) 137 mg/dL CONVERSION FROM [facility] Comment: Reference range: >20 years of age Acceptable: <130 mg/dL Borderline: 130-159 mg/dL High: >159 mg/dL National Cholesterol Education Program Guidelines Reference range: >20 years of age Acceptable: <130 mg/dL Borderline: 130-159 mg/dL High: >159 mg/dL National Cholesterol Education Program Guidelines HDL Cholesterol 50 40 - 60 mg/dL CONVERSION FROM [facility] Comment: Cardiovascular risk <40 mg/dL High risk >60 mg/dL Low risk 07/04/2020 1:58 PM EDT 07/04/2020 1:58 PM EDT John Newman MD LAB BLOOD ORDERABLES Bea l Result CONVERSION FROM [facility] from Last 3 Months or Most Recently Relevant to Health Maintenance Advance Directives Documents on File Type Date Recorded Patient Trust Clerk Expl anation Health Care Proxy 04/13/2022 8:32 AM Health Care Proxy Advance Directive 08/17/2020 12:00 AM [facility] NCE DIRECTIVE: 08/09/2020 Auth to Disclose PHI Care Teams Print Shop Chief Clerk Relationship Specialty Start Date End Date Anna Blakely MD [address] [place] [id number] PCP - General 07/06/22
== END 2025-07-21 14:01 | disposition home or self-care (01) ==
LOC: HO.HBS 13:01
PROVIDERS: PCP Physician Assistant; Visit Provider Physician Assistant Surgical
DX: E66.01 Morbid (severe) obesity due to excess calories (principal); Z68.41 Body mass index [BMI] 40.0-44.9, adult; Z90.3 Acquired absence of stomach [part of]; Z98.84 Bariatric surgery status
CPT/HCPCS: 99024

== ENCOUNTER 2025-08-27 11:59 | Outpatient (AMB) | payer OTHER, SELFPAY ==
--- NOTE | 2025-08-27 11:48 | MHC.OFFVISWM ---
VS Expanded 08/27/25 11:49 Height 5 ft 6 in Weight 242 lb 1 oz BMI 39.1 Intake Visit Reasons: TV PO LSG 07/15/25 Allergies nickel Allergy (Intermediate, Verified 07/21/25 13:17) Hives amoxicillin (From Augmentin) Allergy (Mild, Verified 07/21/25 13:17) Vomiting clavulanic acid (From Augmentin) Allergy (Mild, Verified 07/21/25 13:17) Vomiting levofloxacin (From Levaquin) Adverse Reaction (Severe, Verified 07/21/25 13:17) Anaphylaxis Medication List - Last Reconciled 08/27/25 by PHUONG Robert apixaban (Eliquis) 5 mg PO BID Held on 07/16/25. Instructions: Resume on 07/17/25. Only resume once cleared by Dr. Garcia ondansetron 4 mg PO Q12H pantoprazole 40 mg PO DAILY sucralfate 10 mL PO BID HPI Comments Details: This?is a?54?yo F who is s/p LSG 07/15/2025. Presents for 6w post op visit. Weight loss of 12.7lb since last OV 5 weeks ago. No complaints of nausea, emesis, abdominal pain or reflux, or constipation. She notes that she was using oat milk in shakes, but didn't realize that the calories were higher (120 per cup). Present meal plan includes: Ghost/Ryze shakes- also uses decaf cappuccino mixed with water- 20g protein occasional protein bars- on days she is not working no solids yet BariMelts MVI with iron Exercise routine includes: uses stationary bike, home trampoline tries to do HIIT workouts with resistance bands rinaldi 600-700 calories per session, 6 days per week PFSH Medical History (Updated 07/24/25 @ 00:01 by Background Daemon) GERD (gastroesophageal reflux disease) Anesthesia complication Endometrial cancer Asthma Pulmonary emboli Fatty liver Back pain Morbid obesity Pulmonary nodule 1 cm or greater in diameter DVT (deep venous thrombosis) Lupus Surgical History (Updated 07/24/25 @ 00:01 by Background Daemon) S/P gastric sleeve procedure H/O colonoscopy History of esophagogastroduodenoscopy (EGD) Hx of eye surgery Hx of cholecystectomy Hx of hysterectomy, total Family History Mother Hypothyroid Father Diabetes Social History Household Members: None Housing: House Are you a primary director of home care hospice to a significant other at home: No Do you presently have visiting nurse or other home services: No Alcohol intake: current Alcohol intake frequency: does not drink Patient Tobacco Use Status: Never used Tobacco service: No Current occupational status: employed Telehealth Telehealth Telehealth Platform: Telephone Location of provider rendering services: other Location of patient: address on file Patient Identification confirmed using: Name, : Yes Telehealth method: voice only Patient verbally consented to treatment: Yes Patient verbally consented to billing insurance company: Yes Patient informed of any privacy concerns related to visit: Yes Minutes spent on Phone/Video with Pt.: 15 Assessment & Plan Assessment & Plan (1) S/P laparoscopic sleeve gastrectomy: Code(s): Z98.84 - Bariatric surgery status Category: Surgical (2) Morbid obesity: Code(s): E66.01 - Morbid (severe) obesity due to excess calories Category: Medical Plan Pt to continue meal plan per Dr Guevara Doing great with exercise. Cleared for all activity. Continue PPI/sucralfate until 3mo postop. RTC 3 mo.
[2025-08-27 11:49] VITALS: BMI 39.1
--- OUTSIDE RECORDS SUMMARY | 2025-08-27 14:44 | XMS_ITS | Clinical Summary ---
Author Organization [facility] Address [address] [place] [address] Care Team Providers Care Supervisor Nurse Name Role Phone Anna Blakely MD Primary [...] Stool DNA (Cologuard) 2016 Sigmoidoscopy 2016 Pneumococcal Vaccine: 50+ Years (1 of 1 - PCV) 2021 Zoster Vaccine (1 of 2) 2021 Lipid Panel 07/04/2025 07/04/2020 COVID-19 Vaccine (4 - 2024-2 6 season) 2025 11/01/2021, 11/28/2020, 11/07/2020 Influenza Vaccine (#1) 2025 Meningococcal B Vaccines [...] EDT) Triglycerides 77 <150 mg/dL CONVERSION FROM [facility] Cholesterol 202(H) <200 mg/dL CONVERSION FROM [facility] LDL-CHOL CALC (CNV) 137 mg/dL CONVERSION FROM [facility] Comment: Reference range: >20 years of age Acceptable: <130 mg/dL Borderline: 130-159 mg/dL High: >159 mg/dL National Cholesterol Education Program Guidelines Reference range: >20 years of age Acceptable: <130 mg/dL Borderline: 130-159 mg/dL High: >159 mg/dL National Cholesterol Education Program Guidelines HDL Cholesterol 50 40 - 60 mg/dL CONVERSION FROM [facility] Comment: Cardiovascular risk <40 mg/dL High risk >60 mg/dL Low risk 07/04/2020 1:58 PM EDT 07/04/2020 1:58 PM EDT John Newman MD LAB BLOOD ORDERABLES Bea l Result CONVERSION FROM [facility] from Last 3 Months or Most Recently Relevant to Health Maintenance Advance Directives Documents on File Type Date Recorded Patient Transportation Maintenance Supervisor Expl anation Health Care Proxy 04/13/2022 8:32 AM Health Care Proxy Advance Directive 08/17/2020 12:00 AM [facility] NCE DIRECTIVE: 08/09/2020 Auth to Disclose PHI Care Teams Supervisor Nurse Relationship Specialty Start Date End Date Anna Blakely MD [address] [place] [address] [phone] PCP - General 07/06/22
--- OUTSIDE RECORDS SUMMARY | 2025-08-27 14:44 | XMS_ITS | Clinical Summary ---
Author Organization [facility] Address [address] [place] [address] Care Team Providers Care Slubber Tender Name Role Phone Amee De La Cruz [facility] Primary Care Provider Source Comments [...] mg tabIndications:D VT, lower extremity, distal, acute, right,Bilateral pulmonary embolism Take 1 Tablet by mouth once daily 90 Tablet 1 12/18/2022 Active traZODone (DESYREL) 50 mg tabletIndication s:Sleep disturbance Take 0.5-1 Tablets by mouth nightly at bedtime as needed for sleep 30 Tablet 01/15/2023 Active Active Problems Problem Noted Date Diagnosed Date Systemic lupus erythematosus , unspecified SLE type, unspecified organ involvement status 09/10/2022 Bilateral pulmonary embolism 05/07/2022 Overview (09/10/2022): Dx April 2022, had a prior dvt nov 2021 Will likely need lifelong anticoagulation xarelto 20mg daily DVT, lower extremity, distal, acute, right 12/01 Immunizations Immunization Administration Dates Next Due PNEUMOCOCCAL [...] 11/11/2024 09/10/2022 Depression Annual Screen 11/11/2024 12/01/2021 [id number] ( season) 2025 11/01/2021, 11/28/2020, 11/07/2020 Imm-Influenza [...] purpose. For additional information please refer to http://education.[employer]learn.[employer]/faq/IIH250 (This link is being provided for informational/ educational purposes only.) The performance of this assay has not been clinically validated in patients less than 2 years old. 03/30/2019 2:[address] [facility] Provider Default LAB - BLOOD DRAW Final [...] Maintenance Insurance [employer] Care Teams Slubber Tender Relationship Specialty Start Date End Date Amee De La Cruz FNP [address] [place] [address] PCP - General 11/13/23
--- OUTSIDE RECORDS SUMMARY | 2025-08-27 14:44 | XMS_ITS | Patient Health Record ---
Author Organization [facility] Address [address] [place] [address] Care Team Providers Care C D Still Operator Name Role Phone Aimee Heard Unavailable [phone] Allergies Allergen (clinical drug ingredient) Drug/Non Drug [...] Status Risk Notes Problem Morbid obesity (disorder) (054879876) Morbid (severe) obesity due to excess calories (E66.01) Active confirmed Problem Body mass index 40+ - severely obese (920767004) Body mass index [BMI] 45.0-49.9, adult (Z68.42) Active confirmed Problem Adrenal mass (199646435) Adrenal mass (E27.8) Active confirmed Problem Cyst of thyroid (42159743) Thyroid cyst (E04.1) Active confirmed Plan Of Treatment No Information Insurance Providers Payer Name Payer Address Payer Phone Subscriber Number Group Number Insured Name Patient Relationship to Insured Coverage Start Date Coverage End Date [place] [address] [phone] [place] [id number] Corrine Michaels Self - patient is the [...]
--- OUTSIDE RECORDS SUMMARY | 2025-08-27 14:44 | XMS_ITS | Clinical Summary ---
Author Organization [email or web address] [facility] Address [address] [place] [address] [place] [id number] Care Team Providers Care Alterations Workroom Clerk Name Role Phone Poc, Non Atrius [...] of 2) 2021 COVID-19 Vaccine (1 - 2024-2 6 season) 2025 FLU SEASONAL (#1) 07/12/2025 HAEMOPHILUS INFLUENZA VACCINE Aged Out No longer eligible based on patient's age to complete this topic POLIO VACCINE Aged Out No longer elig ible based on patient's age to complete this topic RSV Vaccine //toddler Aged Out No longer eligible based on patient's age to complete this topic Procedures Procedure Name Priority Date/Time Associated Diagnosis Comments PAP TEST THINPREP VIAL (NURSING CLINICAL DIRECTOR) Routine 06/17/2015 7:35 PM EDT Screening for cervical cancer from Last 3 Months or Most Recently Relevant to Health Maintenance Results * PAP TEST (06/17/2015 7:35 PM EDT) PAP NILM [facility] DEPARTMENT OF PATHOLOGY AND LAB MEDICINE FINAL DX GENERAL CATEGORY: NEGATIVE FOR INTRAEPITHELIAL LESION OR MALIGNANCY. . SPECIMEN ADEQUACY: Satisfactory for evaluation. Transformation zone component present. . APPSB/APPSB [facility] DEPARTMENT OF PATHOLOGY AND LAB MEDICINE CASE # [id number] [facility] DEPARTMENT OF PATHOLOGY AND LAB MEDICINE PROCEDURE DATE 06/17/2015 [facility] DEPARTMENT OF PATHOLOGY AND LAB MEDICINE ORDERING CLINICIAN ANNE-MARIE DUNN M.D. [facility] DEPARTMENT OF PATHOLOGY AND LAB MEDICINE PATHOLOGIST BASIA DELGADO, Intelligence Specialist [facility] DEPARTMENT OF PATHOLOGY AND LAB MEDICINE 06/17/2015 7:35 PM EDT 06/20/2015 9:18 AM EDT Anne-Marie Dunn GENERAL LAB Final Result [facility] [address] [place] [address] [facility] DEPARTMENT OF PATHOLOGY AND LAB MEDICINE [address] [place] [address] from Last 3 Months or Most Recently Relevant to Health Maintenance Care Teams Alterations Workroom Clerk Relationship Specialty Start Date End Date Poc, Non Atrius Pcp Or PCP - General 05/11/15 Poc, Not Required Pcp Or PCP - Payer 05/11/15
--- OUTSIDE RECORDS SUMMARY | 2025-08-27 14:45 | XMS_ITS | Clinical Summary ---
Author Organization [facility] Address [address] [place], [place] [address] Phone Care Team Providers Care Core Baker Name Role Phone Val Hawley Primary Care Provider [phone] Referring, Not Required Unavailable Unavaila ble Immunizations [...] (1 of 2) 2021 INFLUENZA VACCINE (#1) 2025 08/25/2022 COVID-19 VACCINE (4 - 2024-2 6 season) 2025 11/01/2021, 11/28/2020, 11/07/2020 PAP SMEAR 02/05/2027 02/06/2024 RSV VACCINE (1 - 1-dose 75+ series) 2046 HEPATITIS A VACCINES Aged Out No long [...] * Pap Test (02/06/2024 12:00 AM EDT) Report [address] [address] Layer Off: Corrine Nguyen MD [employer] Cytology Report FINAL DIAGNOSIS A. PAP SMEAR [...] 59, 66, 68) Note: Testing performed by [employer] HR-HPV analysis. Clinical correlation is advised. This HPV test was performed at [address] This test has been FDA approved for both SurePath and ThinPrep cervical cytology specimens. The accuracy and precision of this test for all other specimen sources has been verified in the Cytopathology Laboratory of the [facility] and has not been cleared or approved by the U.S. Food and Drug Administration. Clinical correlation is advised. CLINICAL HISTORY Date of Last Menstrual Period: Not Provided Menstrual History: Post Menopausal Other Clinical Conditions: Screening Pap SPECIMEN SOURCE A: PAP SMEAR (SUREPATH) CE Patient Name: CORRINE CONNORS : 1970 (Age: 53) Sex: F Institution: [facility] Location: [facility] Date of Collection: 02/06/2024 Date of Reported: 02/14/2024 10:00 Results to: Iza Jerez [facility] Final Diagnosis A. PAP SMEAR (SUREPATH) CE: SPECIMEN ADEQUACY: Satisfactory for evaluation; transformation zone present. INTERPRETATION: NEGATIVE FOR INTRAEPITHELIAL LESION OR MALIGNANCY. [facility] Results\Inter pretation A. PAP SMEAR (SUREPATH) CE: Human Papilloma Virus TestNEGATIVE for high-risk Human Papilloma Virus types 16, 18, 45 and the Other high risk probe set (Includes 31, 33, 35, 39, 51, 52, 56, 58, 59, 66, 68)Note: Testing performed by [employer] HR-HPV analysis. Clinical correlation is advised. This HPV test was performed at [address] [place]. This test has been FDA approved for both SurePath and ThinPrep cervical cytology specimens. The accuracy and precision of this test for all other specimen sources has been verified in the Cytopathology Laboratory of the [facility] and has not been cleared or approved by the U.S. Food and Drug Administration. Clinical correlation is advised. [facility] Conversion Type 02/06/2024 9:21 AM EDT Iza Jerez NP CYTOLOGY ORDERABLES Edited Result - Final [address] [address] from Last 3 Months or Most Recently Relevant to Health Maintenance Insurance [employer] [place] [address] [employer] [address] [address] [employer] Care Teams Core Baker Relationship Specialty Start Date End Date Val Hawley PA [address] [place] [phone] PCP - General Physician Anvil Worker 03/26/24 Referring, Not Required 03/26/24 Additional Source Comments The information contained in this document represents components of the legal health record. It is not the complete legal health record.[facility]
== END 2025-08-27 12:00 | disposition home or self-care (01) ==
LOC: HO.HBS 11:59
PROVIDERS: PCP Physician Assistant; Visit Provider Physician Assistant Surgical
DX: E66.9 Obesity, unspecified (principal); Z68.39 Body mass index [BMI] 39.0-39.9, adult; Z90.3 Acquired absence of stomach [part of]; Z98.84 Bariatric surgery status
CPT/HCPCS: 99024